=== PATIENT | male | born 1935 | race Caucasian/White ===

== ENCOUNTER 2019-01-18 15:43 | Inpatient (IN) | payer OTHER, MEDICARE ==
[~2019-01-18] VITALS: Ht 172.7 cm; Wt 81.4 kg
[~2019-01-18 15:43] MED LIST: AMLO10 PO; AMOX875 PO; ASPI325 PO; CALCAVITDA PO; CHOL10002 PO; CITA10S PO; CITA20 PO; FOLI1 PO; GABA300 PO; GLIP5 PO; HYDPAM25 PO; Hair, Skin & N1 EACH PO; LIDO700A20 TOP; METO25; OXYC5; OXYC5 PO; PANT40 PO; TAMS.4ER PO; TEMA15 PO; THIA100 PO; TROSPIUM CHLORI20 MG PO
[2019-01-18 17:39] LABS: BASOPHILS ABSOLUTE AUTO 0.01 K/mm3 (0.00-0.23); BASOPHILS PERCENT AUTO 0 % (0-2); EOSINOPHILS PERCENT AUTO 0 % (0-6); Hematocrit 40.1 % (37.0-53.0); Hemoglobin 13.8 g/dL (13.5-17.5); IMMATURE GRAN ABSOLUTE AUTO 0.06 K/mm3 (0.00-0.10); IMMATURE GRAN PERCENT AUTO 1 % (0-1); LYMPHOCYTES PERCENT AUTO 10 % (21-46); MONOCYTES ABSOLUTE AUTO 0.95 K/mm3 (0.16-1.47); MONOCYTES PERCENT AUTO 9 % (4-13); Mean Corpuscular HGB 35.8 pg (26.0-34.0); Mean Corpuscular HGB Conc 34.4 g/dL (31.5-36.5); Mean Corpuscular Volume 104 fL (80-100); Mean Platelet Volume 10.2 fL (9.1-12.4); NEUTROPHILS ABSOLUTE AUTO 8.77 K/mm3 (1.96-9.15); NEUTROPHILS PERCENT AUTO 81 % (41-73); Platelet Count 162 K/mm3 (150-400); RDW Coefficient Variation 12.3 % (11.7-14.2); Red Blood Cell Count 3.85 M/mm3 (4.30-5.90); White Blood Cell Count 10.89 K/mm3 (4.00-11.30)
[2019-01-18 17:57] LABS: Alanine Aminotransfer (ALT/SGP 91 U/L (12-78); Alk Phos 72 U/L (50-136); Anion Gap 15 mmol/L (6-16); Aspartate Aminotrans (AST/SGOT 54 U/L (12-37); Bilirubin, Total 0.8 mg/dL (0.1-1.0); Blood Urea Nitrogen 23 mg/dL (8-24); Bun/Creatinine Ratio 17.4 (12.0-20.0); CO2, Blood 18 mmol/L (21-32); Calcium, Blood 9.3 mg/dL (8.5-10.1); Chloride, Blood 99 mmol/L (98-108); Creatinine, Blood 1.32 mg/dL (0.60-1.20); Ethanol (Alcohol), Blood, Med <3 mg/dL; Globulin, Blood 4.1 g/dL (2.2-4.0); Glomerular Filtration Rate 55 (60-); Glucose, Blood 296 mg/dL (70-99); Potassium, Blood 4.7 mmol/L (3.5-5.5); Sodium, Blood 132 mmol/L (136-145); Total Protein, Blood 8.1 g/dL (6.4-8.2)
[2019-01-18] MEDS ORDERED: LISI20 PO (18:01)
[2019-01-18] MEDS ORDERED: Aspir 8181 MG PO (18:02)
[2019-01-18] MEDS ORDERED: METF500 PO (18:02)
[2019-01-18] MEDS ORDERED: CALCITRATE200 MG PO (18:03)
[2019-01-18] MEDS ORDERED: METO25 PO (18:03)
[2019-01-18] MEDS ORDERED: TAMS.4ER PO (18:03)
[2019-01-18] MEDS ORDERED: Zantac150 MG PO (18:04)
[2019-01-18] MEDS ORDERED: SILD50TA PO (18:04)
[2019-01-18 18:30] LABS: Thyroid Stimulating Hormone 0.83 uIU/mL (0.360-4.800)
[2019-01-18 18:42] LABS: Magnesium, Blood 1.1 mg/dL (1.6-2.4); Phosphorus, Blood 4.6 mg/dL (2.5-4.9)
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
[2019-01-19 04:10] LABS: BASOPHILS ABSOLUTE AUTO 0.01 K/mm3 (0.00-0.23); BASOPHILS PERCENT AUTO 0 % (0-2); EOSINOPHILS ABSOLUTE AUTO 0.01 K/mm3 (0.00-0.68); EOSINOPHILS PERCENT AUTO 0 % (0-6); Hematocrit 38.4 % (37.0-53.0); Hemoglobin 13.4 g/dL (13.5-17.5); IMMATURE GRAN ABSOLUTE AUTO 0.01 K/mm3 (0.00-0.10); IMMATURE GRAN PERCENT AUTO 0 % (0-1); LYMPHOCYTES ABSOLUTE AUTO 1.67 K/mm3 (0.84-5.20); LYMPHOCYTES PERCENT AUTO 19 % (21-46); MONOCYTES ABSOLUTE AUTO 1.27 K/mm3 (0.16-1.47); MONOCYTES PERCENT AUTO 14 % (4-13); Mean Corpuscular HGB 36.2 pg (26.0-34.0); Mean Corpuscular HGB Conc 34.9 g/dL (31.5-36.5); Mean Corpuscular Volume 104 fL (80-100); Mean Platelet Volume 10.5 fL (9.1-12.4); NEUTROPHILS ABSOLUTE AUTO 5.89 K/mm3 (1.96-9.15); NEUTROPHILS PERCENT AUTO 67 % (41-73); Platelet Count 147 K/mm3 (150-400); RDW Coefficient Variation 12.1 % (11.7-14.2); RDW Standard Deviation 45.9 fL (35.1-46.3); White Blood Cell Count 8.86 K/mm3 (4.00-11.30)
[2019-01-19 04:30] LABS: Alanine Aminotransfer (ALT/SGP 74 U/L (12-78); Albumin, Blood 3.7 g/dL (3.4-5.0); Alk Phos 64 U/L (50-136); Anion Gap 9 mmol/L (6-16); Aspartate Aminotrans (AST/SGOT 41 U/L (12-37); Bilirubin, Total 1.1 mg/dL (0.1-1.0); Blood Urea Nitrogen 27 mg/dL (8-24); Bun/Creatinine Ratio 23.7 (12.0-20.0); CO2, Blood 26 mmol/L (21-32); Chloride, Blood 99 mmol/L (98-108); Creatinine, Blood 1.14 mg/dL (0.60-1.20); Globulin, Blood 3.7 g/dL (2.2-4.0); Glomerular Filtration Rate >60 (60-); Glucose, Blood 224 mg/dL (70-99); Magnesium, Blood 2.2 mg/dL (1.6-2.4); Phosphorus, Blood 3.2 mg/dL (2.5-4.9); Potassium, Blood 4.4 mmol/L (3.5-5.5); Sodium, Blood 134 mmol/L (136-145); Total Protein, Blood 7.4 g/dL (6.4-8.2)
--- NOTE | 2019-01-19 05:28 | NUR ---
SHIFT SUMMARY HAS RESTED SINCE ADMISSION. UNWILLING TO ATTEMPT TO REPOSITION SELF IN BED DUE TO FEAR OF PAIN WITH MOVEMENT. MADE COMMENT TO NURSING THAT HE WAS NOT LOOKING FORWARD TO HAVING TO GET OUT OF BED AND AMBULATE. WHEN NURSING COMMENTED THAT MOVEMENT WAS GOOD AND HIS BODY WOULD HEAL BETTER WITH MOVEMENT, HE STATED THAT HE HAD BEEN HAVING TROUBLE GETTING AROUND AT HOME AND HAD BEEN SPENDING MORE AND MORE TIME SITTING DOWN TO REST. HE WONDERED IF HE WOULD BE ABLE TO GET SOME HELP AT HOME WHILE HE RECOVERED. HE STATED THAT HE LIVED ALONE AND THAT [facility] VISITS. NURSING STATED THAT THIS WOULD BE PASSED ON TO DAY SHIFT, VOICES UNDERSTANDING. PAIN POORLY TOLERATED, PRN PAIN MEDS GIVEN PER MD ORDERS. CIWA STABLE AT 7, TREATED PRN PER MD ORDERS. DENEIS FURTHER NEEDS OR WANTS AT THIS TIME. SAFETY MEASURES NI PLACE. WILL GIVE HAND OFF TO ONCOMING SHIFT USING SBAR.
[2019-01-19 06:39] LABS: Source, Urine Clean Catch
[2019-01-19 06:47] LABS: Bilirubin, Urine Neg (Neg); Blood, Urine 4+ (Neg); Glucose Qualitative, Urine 3+ (Neg); Ketones, Urine 1+ (Neg); Leukocyte Esterase, Urine Neg (Neg); Nitrite, Urine Neg (Neg); Protein, Urine 4+ (Neg); Urobilinogen, Urine NORM (Normal)
[2019-01-19 06:53] LABS: Amorphous Light (0-Heavy); Appearance, Urine Clear (Clear); Bacteria Rare /hpf; Color, Urine Yellow (P-Yellow); Red Blood Cells, Urine 0-2 /hpf (0-2); Squamous Epithelial Cells Few /hpf (Few); White Blood Cells, Urine 0-2 /hpf (0-5)
[2019-01-19 06:57] LABS: U Amphetamine Screen Not Detected; U Barbituate Screen Not Detected; U Benzodiazapine Screen DETECTED; U Buprenorphine Screen Not Detected; U Cannabinoids Screen Not Detected; U Cocaine Screen Not Detected; U Methadone Screen Not Detected; U Methamphetamine Screen Not Detected; U Opiates Screen DETECTED; U Oxycodone Screen Not Detected; U Phencyclidine Screen Not Detected; U Propoxyphene Screen Not Detected
--- NOTE | 2019-01-19 10:18 | NUR ---
TRANSFER TO ICU PT HAVING CONTINUOUS N/V. EMESIS BROWN W/FEW COFFEE APPEARING FLECKS. CIWA INCREASED TO 15. BP 188/107. NOTIFIED DR OLIVA AND ORDERS OBTAINED. REPORT GIVEN TO ANNABEL DASILVA IN ICU. PT TRANSFERRED TO ICU 3.
--- NOTE | 2019-01-19 10:53 | NUR ---
ASSUMED CARE: RECEIVED REPORT FROM STRATEGIC ADVISOR. PT ARRIVED WITH CHEST TUBE ON LOW SUCTION VIA PORTABLE SUCTION. PT TRANSFERED TO ICU BED WITH 5 PERSON AND A SLIDER SHEET. PT [place] OUT IN PAIN AND STATES HE CAN'T BREATH WHILE HAVING PT TURNED ON SIDE TO REMOVE EXTRA LINENS. O2 SATS REMAIN GREATER THAN 92% ON 2L NC. WHILE ON HIS SIDE A SMALL AMOUNT OF BLOOD IS NOTED TO ENTER THE TUBING FROM CHEST TUBE. UPON ASSESSMENT OF THE CHEST TUBE NO CREPITUS NOTED, NO DIVEATED TRACH, SCANT AMOUNT OF BLOOD NOTED UNDER THE DRESSING. BP IS NOTED TO BE ELIVATED SEE VITAL SIGNS. 0.2 MG OF ATIVAN GIVEN FOR CIWA OF 7. DR SALGADOTRATE NOTIFIED OF ELIVATED BP AND CONCERN OF CHEST TUBE BEING POSSIBLY DISLODGED D/T PT EXTREAM PAIN, BLEEDING UNDER DRESSING, DIFFICULTY BREATHING AND ELIVATED BP. WILL CONTINUE TO MONITOR AND ASSESS FURTHER.
--- NOTE | 2019-01-19 18:48 | NUR ---
SHIFT SUMMARY: WHEN TURNING PT ON R SIDE CHEST TUBE LINE APPEARS TO HAVE BRIGHT RED BLOOD DRAIN THROUGH IT, BUT STOPS BEFORE ENTERING THE LARGE TUBING. DR GRIGGS WAS CALLED AND NOTIFIED, NO NEW ORDERS. PT HAS BEEN COUGHING UP DARK BLACK/BROWN SPUTUM ALONG WITH HAVING SOME REPORT OF EMISIS FROM SURGICAL.
--- NOTE | 2019-01-19 19:02 | NUR ---
CIWA: PT HAS HAD A CIWA OF 7 OR LESS BASED ON IF HES SLEEPING OR NOT.
--- NOTE | 2019-01-19 19:43 | NUR ---
ASSUMPTION OF CARE ASSUMED CARE OF PT @ 1900. PT RESTING IN BED, AROUSES TO VERBAL STIMULI, A&O x4, CIWA 2. O2 SATURATIONS @ 96% ON 2L O2 PER NC, LS DIMINISHED T/O BUT EQUAL BILATERALLY, CHEST TUBE TO 20cm WATER SUCTION, BLOODY DRAINAGE NOTED IN TUBE. MONITOR SHOWS SINUS RHYTHM WITH PAC'S AND BBB, RATE 90'S-105, PT HYPERTENSIVE WTIH SYSTOLIC BP 150-170. PT COMPLAINS OF 5/10 HEAD PAIN.
--- NOTE | 2019-01-20 01:19 | NUR ---
DR SHERIDAN IN TO SEE PT, DIET CHANGED TO CLEAR LIQUIDS.
[2019-01-20 03:21] LABS: BASOPHILS ABSOLUTE AUTO 0.02 K/mm3 (0.00-0.23); BASOPHILS PERCENT AUTO 0 % (0-2); EOSINOPHILS PERCENT AUTO 0 % (0-6); Hematocrit 40.3 % (37.0-53.0); Hemoglobin 13.9 g/dL (13.5-17.5); IMMATURE GRAN ABSOLUTE AUTO 0.06 K/mm3 (0.00-0.10); IMMATURE GRAN PERCENT AUTO 0 % (0-1); LYMPHOCYTES ABSOLUTE AUTO 1.91 K/mm3 (0.84-5.20); LYMPHOCYTES PERCENT AUTO 12 % (21-46); MONOCYTES ABSOLUTE AUTO 1.82 K/mm3 (0.16-1.47); MONOCYTES PERCENT AUTO 12 % (4-13); Mean Corpuscular HGB 35.8 pg (26.0-34.0); Mean Corpuscular HGB Conc 34.5 g/dL (31.5-36.5); Mean Corpuscular Volume 104 fL (80-100); Mean Platelet Volume 10.7 fL (9.1-12.4); NEUTROPHILS ABSOLUTE AUTO 11.83 K/mm3 (1.96-9.15); NEUTROPHILS PERCENT AUTO 76 % (41-73); Platelet Count 205 K/mm3 (150-400); RDW Coefficient Variation 12.5 % (11.7-14.2); RDW Standard Deviation 47.9 fL (35.1-46.3); Red Blood Cell Count 3.88 M/mm3 (4.30-5.90); White Blood Cell Count 15.64 K/mm3 (4.00-11.30)
[2019-01-20 03:39] LABS: Bun/Creatinine Ratio 33.1 (12.0-20.0); Calcium, Blood 9.1 mg/dL (8.5-10.1); Creatinine, Blood 1.24 mg/dL (0.60-1.20); Magnesium, Blood 2.4 mg/dL (1.6-2.4); Phosphorus, Blood 1.8 mg/dL (2.5-4.9); Potassium, Blood 4.1 mmol/L (3.5-5.5); Troponin I 0.04 ng/mL (0.000-0.040)
--- NOTE | 2019-01-20 06:13 | NUR ---
SHIFT SUMMARY PT AWAKE FOR MUCH OF SHIFT, BREIF PERIODS OF SLEEP AFTER MEDICATING FOR PAIN, A&O x4 T/O SHIFT, CIWA RANGING FROM 2-7. O2 SATURATIONS MAINTAINED ABOVE 95% ON 2L PER NC, LS DIMINISHED T/O WITH RUB TO ANTERIOR RML NOTED, URASIL CHEST TUBE IN PLACE TO 20cm WATER SUCTION, SANGUINOUS DRAINAGE NOTED IN TUBE. PT WITH PRODUCTIVE COUGH, ABLE TO CLEAR OWN SECRETIONS, OCCASSIONALLY USES SUCTION TO HELP CLEAR SECRETIONS. MONITOR SHOWS SINUS TACHYCARDIA WITH PAC'S AND SOME PVC'S, RATE INCREASED THROUGH SHIFT, RANGING FROM 110-150'S, PT HYPERTENSIVE, PRN MEDICATIONS PROVIDED FOR BP CONTROL. PT CHANGED TO CLEAR LIQUID DIET, TOLERATED PO INTAKE WELL, SOME NAUSEA NOTED. PT TOLERATES PAIN WHEN RESTING IN BED AND ABLE TO SLEEP AFTER MEDICATION PROVIDED, WAKES FREQUENTLY WITH COUGHING/HICCUPS, CAUSING SEVERE PAIN, OVERALL PAIN POORLY MANAGED. PT RESISTANT TO MOVEMENT/REPOSITIONING DUE TO PAIN.
--- NOTE | 2019-01-20 07:17 | NUR ---
START OF SHIFT NOTE: RECEIVED REPORT FROM [place] RIDLEY RN, ASSUMED CARE, PATIENT IS AWAKE AND MOANING, C/O PAIN WITH DEEP BREATHS, ALSO VOMITING WHAT APPEARS TO BE COFFEE GROUND LIQUID, PATIENT IS A+Ox4, ON 2L NC, URICIL CHEST TUBE IN PLACE ON R UPPER CHEST, ATTACHED TO 20 CM WATER SUCTION, LUNG SOUNDS ARE DIMINISHED ON LEFT AND VERY FAINT ON RIGHT, PATIENT IS BREATHING SHALLOW AND MORE RAPIDLY, SINUS TACHY, SBP IN LOW 100'S, SCD'S IN PLACE, PATIENT HAS ATTENDS ON, BUT IS ABLE TO TELL WHEN HE NEEDS TO GO, BUT NEEDS ASSISTANCE WITH URINAL, C/O NOT BEING ABLE TO MOVE AND STATES "I AM NOT GOING TO MAKE IT", PATIENT IS IN ISOLATION FOR MRSA AND POSSIBLE C-DIFF, HAS HAD NO STOOLS FOR OVER 24 HOURS AT THIS TIME, CALL LIGHT IN REACH, WILL CONTINUE TO MONITOR.
--- NOTE | 2019-01-20 07:34 | NUR ---
CALLED DR. OLIVA ABOUT PATIENTS PAIN AND NAUSEA, NEW ORDERS RECEIVED.
[2019-01-20 10:09] LABS: Source, Urine Catheter
--- NOTE | 2019-01-20 10:12 | NUR ---
DR. FITZPATRICK CONSULTED, NEW ORDERS RECEIVED, CHRISTINE CATHETER PLACED D/T URINARY RETENTION AND STRICT I&O, PATIENT INCONTINENT, PATIENT SHOWS MOTTLED SKIN APPEARANCE ON BILATERAL LOWER EXTREMITIES, UA SENT PER PROTOCOL, LAB IN TO DRAW ORDERED BLOOD TESTS, CALL LIGHT IN REACH, WILL CONTINUE TO MONITOR.
[2019-01-20 10:18] LABS: Bilirubin, Urine Neg (Neg); Blood, Urine 1+ (Neg); Glucose Qualitative, Urine 4+ (Neg); Ketones, Urine 1+ (Neg); Leukocyte Esterase, Urine Neg (Neg); Nitrite, Urine Neg (Neg); Protein, Urine 4+ (Neg); Urobilinogen, Urine NORM (Normal)
[2019-01-20 10:28] LABS: Appearance, Urine Hazy (Clear); Color, Urine Yellow (P-Yellow)
[2019-01-20 10:29] LABS: Amorphous Heavy (0-Heavy); Bacteria Rare /hpf; Red Blood Cells, Urine 0-2 /hpf (0-2); Squamous Epithelial Cells Not Seen /hpf (Few); White Blood Cells, Urine 0-2 /hpf (0-5)
[2019-01-20 10:30] LABS: International Normalized Ratio 0.98; Prothrombin Time Results 10.4 Sec (9.7-11.5)
--- NOTE | 2019-01-20 12:27 | NUR ---
PATIENT AWOKE FROM SLEEP, REPORTED THAT HE "FEELS SO MUCH BETTER THAN YESTERDAY, REPORTED MINIMAL PAIN AT THIS TIME, ABLE TO BREATH DEEPER, DENIES ANY NAUSEA AT THIS TIME, SLIGHTLY ELEVATED TEMP AT 100.2, , DR. GRIGGS IN, SUCTION STOPPED, CHEST TUBE NOW TO WATER SEAL, PATIENT TOLERATING WELL, CALL LIGHT IN REACH, WILL CONTINUE TO MONITOR.
--- NOTE | 2019-01-20 14:00 | NUR ---
PATIENT IS RESTING COMFORTABLY WITH EYES CLOSED, VSS, CALL LIGHT IN REACH, WILL CONTINUE TO MONITOR.
--- NOTE | 2019-01-20 17:52 | NUR ---
SHIFT SUMMARY NOTE: PATIENT WAS FOUND VOMITING COFFEE GROUND EMESIS AT BEGINNING OF SHIFT AND WAS IN EXTREME PAIN WITH EVERY MOVEMENT AND COUGH/HICCUP, DR. OLIVA WAS NOTIFIED AND PAIN MEDICATION/NAUSEA MEDICATION WAS CHANGED FROM FENTANYL TO DILAUDID AND FROM ZOFRAN/PHENERGAN TO ADDITIONAL COMPAZINE, WHILE AWAITING NEW ORDERS PATIENT BECAME HYPOTENSIVE WITH SBP'S IN 70'S/40'S AND 500 CC BOLUS WAS ORDERED, PATIENT RESPONDED WELL, ALSO RECEIVED COMPAZINE AND DILAUDID AND RESPONDED WELL TO BOTH, AM BLOOD PRESSURE MEDICATIONS WERE HELD, LABS DRAWN AND LACTIC ACID WAS 2.8, PATIENT RECEIVED 2.5 L BOLUS OF NS AND THE NS AT 125 CC/HR, ALSO ZOSYN AND VANCOMYCIN STARTED, CHRISTINE CATHETER PLACED AND PATIENT IMMEDIATELY HAD ALMOST 700 CC'S OF LINDA COLORED URINE OUT, TOLERATED CHRISTINE INSERTION WELL, DR. FITZPATRICK WAS CONSULTED BY DR. OLIVA, DR. GRIGGS ALSO CAME TO SEE PATIENT AND TURNED OF WALL SUCTION, PATIENT NOW ON WATER SEAL, MINIMAL CHEST TUBE OUTPUT, DR. SHERIDAN IN TO SEE PATIENT, WILL POSSIBLY DO EGD WHEN CHEST TUBE IS OUT, PATIENT REMAINS NPO AT THIS TIME, SLIGHTLY ELEVATED TEMP OF 100.0, MD'S AWARE, PATIENT STATES THAT "HE FEELS BETTER THAN YESTERDAY AND THIS MORNING", REPOSITIONED MULTIPLE TIMES, ABLE TO ASSIST SOME, ALERT AND ORIENTED, CONTINUES ON 2L NC WITH O2 SATS IN MID 90'S, RESTING COMFORTABLY AT THIS TIME, CALL LIGHT IN REACH, WILL CONTINUE TO MONITOR AND GIVE REPORT TO ONCOMING LIBRARY HELPER.
--- NOTE | 2019-01-20 21:00 | NUR ---
ASSUMPTION OF CARE ASSUMED CARE OF PT @ 1900, APPEARS TO BE RESTING COMFORTABLY, O2 SATURATIONS 95% ON 2L PER NC, URASIL CT IN PLACE TO WATER SEAL, SANGUINEOUS DRAINAGE NOTED IN TUBE. MONITOR SHOWS SINUS RHYTHM, RATE 80'S, SYSTOLIC BP 140'S. AT APPROX 1915, PT STARTED COUGHING, COMPLAINTS OF 10/10 PAIN AND NAUSEA, PRN DILAUDID AND COMPAZINE PROVIDED, WITH GOOD EFFECT, NO EMESIS AT THIS TIME. SMALL SIPS OF WATER PROVIDED FOR SCHEDULED PO MEDS, PT TOLERATED WELL. CHRISTINE IN PLACE DRAINING LINDA COLORED URINE.
[2019-01-21 03:24] LABS: BASOPHILS ABSOLUTE AUTO 0.03 K/mm3 (0.00-0.23); BASOPHILS PERCENT AUTO 0 % (0-2); EOSINOPHILS ABSOLUTE AUTO 0.15 K/mm3 (0.00-0.68); EOSINOPHILS PERCENT AUTO 2 % (0-6); Hematocrit 30.7 % (37.0-53.0); Hemoglobin 10.2 g/dL (13.5-17.5); IMMATURE GRAN ABSOLUTE AUTO 0.06 K/mm3 (0.00-0.10); IMMATURE GRAN PERCENT AUTO 1 % (0-1); LYMPHOCYTES ABSOLUTE AUTO 2.16 K/mm3 (0.84-5.20); LYMPHOCYTES PERCENT AUTO 22 % (21-46); MONOCYTES ABSOLUTE AUTO 1.02 K/mm3 (0.16-1.47); MONOCYTES PERCENT AUTO 10 % (4-13); Mean Corpuscular HGB 37.1 pg (26.0-34.0); Mean Corpuscular HGB Conc 33.2 g/dL (31.5-36.5); Mean Platelet Volume 10.1 fL (9.1-12.4); NEUTROPHILS ABSOLUTE AUTO 6.39 K/mm3 (1.96-9.15); NEUTROPHILS PERCENT AUTO 65 % (41-73); Platelet Count 140 K/mm3 (150-400); RDW Coefficient Variation 12.7 % (11.7-14.2); RDW Standard Deviation 51.8 fL (35.1-46.3); Red Blood Cell Count 2.75 M/mm3 (4.30-5.90); White Blood Cell Count 9.81 K/mm3 (4.00-11.30)
[2019-01-21 03:49] LABS: Mean Corpuscular Volume 112 fL (80-100)
[2019-01-21 03:54] LABS: Albumin, Blood 2.7 g/dL (3.4-5.0); Albumin/Globulin Ratio 0.9 (0.8-1.8); Bilirubin, Total 0.8 mg/dL (0.1-1.0); Bun/Creatinine Ratio 28.9 (12.0-20.0); Calcium, Blood 7.9 mg/dL (8.5-10.1); Creatinine, Blood 1.35 mg/dL (0.60-1.20); Globulin, Blood 3.1 g/dL (2.2-4.0); Magnesium, Blood 2.3 mg/dL (1.6-2.4); Phosphorus, Blood 2.3 mg/dL (2.5-4.9); Potassium, Blood 4.2 mmol/L (3.5-5.5); Total Protein, Blood 5.8 g/dL (6.4-8.2)
--- NOTE | 2019-01-21 06:33 | NUR ---
SHIFT SUMMARY PT REMAINS STABLE T/O SHIFT, RESTED WELL THROUGH NIGHT, AROUSES EASILY, SOME COMPLAINTS OF PAIN TO R CHEST, PRN MEDICATIONS ADEQUATE TO CONTROL PAIN. LUNG SOUNDS DIMINISHED, REMAINS ON 2L PER NC TO MAINTAIN O2 SATURATIONS ABOVE 95%, CHEST TUBE TO WATER SEAL IN PLACE, 15ml DRAINAGE THIS SHIFT. MONITOR SHOWS SINUS RHYTHM, RATE 70'S-80'S. TMAX THIS SHIFT 100.6. CHRISTINE IN PLACE DRAINING LINDA COLORED URINE. POWERGLIDE PLACED THIS SHIFT TO R UPPER ARM.
--- NOTE | 2019-01-21 07:30 | NUR ---
START OF SHIFT NOTE: RECEIVED REPORT FROM GE[place] RIDLEY RN, ASSUMED CARE, PATIENT IS AWAKE, ALERT AND ORIENTED, TALKATIVE, COOPERATIVE, PLEASANT, REPORTS THAT HIS PAIN IS "NOT BAD WHEN HE JUST LAYS THERE, BUT IT GETS WORSE WHEN HE TRIES TO MOVE", OVERALL PATIENT IS DOING MUCH BETTER, SWALLOWS HIS MORNING MEDICATION WITH SIPS OF WATER, NO PROBLEM SWALLOWING, TALKS ABOUT HIS DOG, TEMP SLIGHTLY ELEVATED AT 101.1, RECEIVED TYLENOL 650 MG PO FROM NOC SHIFT RIGHT BEFORE SHIFT CHANGE, HAS UROCIL/PLEURIVAC IN RIGHT UPPER CHEST CONNECTED TO CHEST TUBE WHICH IS TO 20 CM WATER SEAL, MINIMAL SANGINOUS DRAINAGE, LUNG SOUNDS ARE DIMINISHED ON BOTH SIDES, MORE SO ON RIGHT, PATIENT IS ABLE TO TAKE DEEPER BREATHS, SR/ST WITH HR IN 90'S, SBP'S IN 140'S, O2 SATURATION IN MID TO UPPER 90'S, BOWEL TONES ARE PRESENT IN ALL FOUR QUADRANTS AND ARE HYPOACTIVE, PATIENT HAS A TEMP CHRISTINE IN WITH GOOD URINE OUTPUT, LINDA COLORED URINE, NS AT 125 CC/HR INFUSING, ALSO RECEIVES ZOSYM AND VANCOMYCIN, NO N/V, NO SOB, NO CHEST PAIN/DISCOMFORT, CALL LIGHT IN REACH, WILL CONTINUE TO MONITOR.
--- NOTE | 2019-01-21 08:50 | NUR ---
PATIENT TOOK AM PO MEDICATION WITHOUT ANY PROBLEM SWALLOWING WITH SIPS OF WATER AND ENSURE.
--- NOTE | 2019-01-21 09:08 | NUR ---
PATIENT RECEIVED 1 MG OF DILAUDID IV FOR PAIN 10/10 IN RIGHT CHEST AND RADIATING AROUND TO MID BACK, PATIENT WAS ALSO REPOSITIONED AND REPORTED "LESS PAIN AND DISCOMFORT".
--- NOTE | 2019-01-21 09:45 | NUR ---
DR. GRIGGS IN TO SEE PATIENT, PULLED UROCIL CHEST TUBE, PATIENT TOLERATED WELL, INSERTION SITE ON RIGHT UPPER CHEST COVERED WITH GAUZE AND OPSITE.
--- NOTE | 2019-01-21 10:27 | NUR ---
Echocardiogram completed.
--- NOTE | 2019-01-21 10:53 | NUR ---
DR. SALGADOTRATE IN TO SEE PATIENT, NO NEW ORDERS AT THIS TIME, IF PATIENT CONTINUES TO DO WELL MAY TRANSFER TO PCU THIS AFTERNOON.
--- NOTE | 2019-01-21 11:28 | NUR ---
DR. FITZPATRICK IN TO SEE PATIENT, NEW ORDERS RECEIVED.
--- NOTE | 2019-01-21 14:41 | NUR ---
OF 0900 HOURS ON 01-22-19 PATIENT IS ONLY ALLOWED WATER AND ICE CHIPS FOR PENDING EGD.
--- NOTE | 2019-01-21 16:16 | NUR ---
PATIENT REPOSITIONED FOR COMFORT, TOLERATING WELL, TOOK PO MEDS WELL WITH SIPS OF ENSURE, GOOD URINE OUTPUT AFTER LASIX ADMINISTRATION, CALL LIGHT IN REACH, WILL CONTINUE TO MONITOR.
--- NOTE | 2019-01-21 16:43 | NUR ---
PATIENT RECEIVED 1 MG DILAUDID IV FOR PAIN 7/10 ON RIGHT CHEST AND ALSO 650 MG TYLENOL PO FOR TEMP OF 100.8, PATIENT RESTING WITH EYES CLOSED, CALL LIGHT IN REACH, WILL CONTINUE TO MONITOR.
--- NOTE | 2019-01-21 17:09 | NUR ---
REPORT CALLED TO ANNABEL LE, ON PCU, PATIENT WILL BE TRANSFERRED TO PCU ROOM 14 VIA BED.
--- NOTE | 2019-01-21 17:40 | NUR ---
PT DENIES NAUSEA, REGLAN IS HELD FOR NOW
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
--- NOTE | 2019-01-22 04:11 | NUR ---
SHIFT SUMMARY: 83 Y/O MALE RESTED COMFORTABLY IN BED ALL SHIFT; PT HAD OCCASIONAL RIBS DISCOMFORT RATED 6/10 WITH DILAUDID 1MG IVP PROVIDING ADEQUATE PAIN RELIEF FELT; LUNG SOUNDS ARE DIMINISHED THROUGHOUT WITH OCCASIONAL PRODUCTIVE COUGH WHITE/BROWN PHELGM; ALERT AND ORIENTED X 2; ABLE TO FOLLOW ALL SIMPLE VERBAL COMMANDS; BED ALARM APPLIED, BED LOW POSITION WITH CALL LIGHT AT SIDE.
[2019-01-22 05:02] LABS: BASOPHILS ABSOLUTE AUTO 0.02 K/mm3 (0.00-0.23); BASOPHILS PERCENT AUTO 0 % (0-2); EOSINOPHILS ABSOLUTE AUTO 0.11 K/mm3 (0.00-0.68); EOSINOPHILS PERCENT AUTO 2 % (0-6); Hematocrit 29.9 % (37.0-53.0); IMMATURE GRAN ABSOLUTE AUTO 0.04 K/mm3 (0.00-0.10); IMMATURE GRAN PERCENT AUTO 1 % (0-1); LYMPHOCYTES ABSOLUTE AUTO 1.41 K/mm3 (0.84-5.20); LYMPHOCYTES PERCENT AUTO 23 % (21-46); MONOCYTES ABSOLUTE AUTO 0.67 K/mm3 (0.16-1.47); MONOCYTES PERCENT AUTO 11 % (4-13); Mean Corpuscular HGB 36.4 pg (26.0-34.0); Mean Corpuscular HGB Conc 33.4 g/dL (31.5-36.5); NEUTROPHILS ABSOLUTE AUTO 3.79 K/mm3 (1.96-9.15); NEUTROPHILS PERCENT AUTO 63 % (41-73); Platelet Count 129 K/mm3 (150-400); RDW Coefficient Variation 12.3 % (11.7-14.2); RDW Standard Deviation 49.1 fL (35.1-46.3); Red Blood Cell Count 2.75 M/mm3 (4.30-5.90); White Blood Cell Count 6.04 K/mm3 (4.00-11.30)
[2019-01-22 05:12] LABS: Mean Corpuscular Volume 109 fL (80-100)
[2019-01-22 05:17] LABS: International Normalized Ratio 0.97; Prothrombin Time Results 10.3 Sec (9.7-11.5)
[2019-01-22 05:20] LABS: Anion Gap 6 mmol/L (6-16); Blood Urea Nitrogen 28 mg/dL (8-24); CO2, Blood 25 mmol/L (21-32); Calcium, Blood 8.3 mg/dL (8.5-10.1); Chloride, Blood 107 mmol/L (98-108); Creatinine, Blood 1.12 mg/dL (0.60-1.20); Glomerular Filtration Rate >60 (60-); Glucose, Blood 203 mg/dL (70-99); Potassium, Blood 4.2 mmol/L (3.5-5.5); Sodium, Blood 138 mmol/L (136-145)
--- NOTE | 2019-01-22 07:26 | NUR ---
ASSUMED CARE: PT RESTING QUIETLY AT THIS TIME. NO ACUTE NEEDS OR DISTRESS AT THIS TIME. PLAN FOR EGD LATER TODAY. NPO SIGN OUTSIDE OF DOOR
[2019-01-22 12:11] LABS: Vancomycin, Trough 6.7 ug/mL (5.0-10.0)
--- NOTE | 2019-01-22 15:34 | NUR ---
[facility]: [facility] [address] [place] [id number] PHONE NUMBER [phone] SELENE GUTIERREZ RN CARE MANAGER ,, , ,
--- NOTE | 2019-01-22 16:00 | NUR ---
DAY SURGERY CALLED TO GET PT AND WERE MADE AWARE OF PT'S CIWA SCORE OF 8 AND GIVEN 1MG OF ATIVAN. THEY WERE CONCERNED OF PT'S CONFUSION AND NEEDED NEXT OF KIN. NO ONE LISTED ON FACE SHEET. DISCUSSED WITH PREPARATION ROOM WORKER WHO FOUND PT'S S[facility]OUGH [facility]. DISCUSSED CASE WITH SON AND CALLED DR SHERIDAN TO LET HIM KNOW NEXT OF KIN IS AVAILABLE. PT TAKEN TO DAY SURGERY VIA JESSICA
--- NOTE | 2019-01-22 16:36 | NUR ---
01/22/19 0436 Jessica Hudson History, Chart, Medications and Allergies reviewed before start of procedure. MAC CASE WITH DR. KERR. TELEPHONE CONSENT OBTAINED WITH SON IN [facility] TO START OF CASE PT SEDATED, CONFUSED, UNABLE TO SIGN OWN CONSENT.
--- NOTE | 2019-01-22 19:37 | NUR ---
SHIFT SUMMARY: PT AHS BEEN LETHARGIC AND CONFUSED SINCE RETURN FROM DAY SURGERY. FAMILY AT BEDSIDE AT THIS TIME. PT SATTING WELL ON 2L, MUMBLES. NO ACUTE DISTRESS AT THIS TIME.
[2019-01-23 04:07] LABS: BASOPHILS ABSOLUTE AUTO 0.01 K/mm3 (0.00-0.23); BASOPHILS PERCENT AUTO 0 % (0-2); EOSINOPHILS ABSOLUTE AUTO 0.28 K/mm3 (0.00-0.68); EOSINOPHILS PERCENT AUTO 6 % (0-6); Hematocrit 28.8 % (37.0-53.0); Hemoglobin 9.6 g/dL (13.5-17.5); IMMATURE GRAN ABSOLUTE AUTO 0.02 K/mm3 (0.00-0.10); IMMATURE GRAN PERCENT AUTO 0 % (0-1); LYMPHOCYTES ABSOLUTE AUTO 1.39 K/mm3 (0.84-5.20); LYMPHOCYTES PERCENT AUTO 28 % (21-46); MONOCYTES ABSOLUTE AUTO 0.63 K/mm3 (0.16-1.47); MONOCYTES PERCENT AUTO 13 % (4-13); Mean Corpuscular HGB 35.8 pg (26.0-34.0); Mean Corpuscular HGB Conc 33.3 g/dL (31.5-36.5); Mean Corpuscular Volume 108 fL (80-100); Mean Platelet Volume 10.2 fL (9.1-12.4); NEUTROPHILS ABSOLUTE AUTO 2.62 K/mm3 (1.96-9.15); NEUTROPHILS PERCENT AUTO 53 % (41-73); Platelet Count 128 K/mm3 (150-400); RDW Standard Deviation 46.8 fL (35.1-46.3); Red Blood Cell Count 2.68 M/mm3 (4.30-5.90); White Blood Cell Count 4.95 K/mm3 (4.00-11.30)
[2019-01-23 04:31] LABS: Albumin, Blood 2.6 g/dL (3.4-5.0); Albumin/Globulin Ratio 0.8 (0.8-1.8); Bilirubin, Direct 0.3 mg/dL (0.0-0.3); Bilirubin, Indirect 0.6 mg/dL (0.1-0.7); Bilirubin, Total 0.9 mg/dL (0.1-1.0); Globulin, Blood 3.2 g/dL (2.2-4.0); Total Protein, Blood 5.8 g/dL (6.4-8.2)
--- NOTE | 2019-01-23 07:15 | NUR ---
SHIFT SUMMARY PATIENT APPEARED CONFUSED AND FORTGETFUL LAST NIGHT. PATIENT'S MENTATION WOULD COME AND GO. SOMETIMES PATIENT WOULD BE ABLE TO ANSWER SOME MENTATION QUESTIONS AND OTHER TIMES PATIENT WAS NOT. HOWEVER, THIS AM PATIENT APPEARS ALERT AND ORIENTED AND WAS ABLE TO ANSWER ALL MENTATION QUESTIONS APPROPRATELY ASIDE FROM THE SPECIFIC DATE. PATIENT WAS ABLE TO STATE A GENERAL DATE OF JANUARY OF 2019. PATIENT TURNED Q2H. PATIENT MEDICATED FOR PAIN PER EMAR. PATIENT APPEARED TO NAP ON AND OFF THROUGHOUT THE NIGHT. REPORT GIVEN TO ONCOMING RN.
[2019-01-23 11:27] LABS: Vancomycin, Trough 13.7 ug/mL (5.0-10.0)
--- NOTE | 2019-01-23 18:59 | NUR ---
SHIFT SUMMARY/TRANSFER NOTE REPORT GIVEN VIA TELEPHONE FOR RN ABDULAZIZ, ASSUMING CARE OF PT. PT BEING TRANSFERED TO ROOM 350. PT A&Ox3 WITH INTERMITTENT CONFUSION. CIWA 5-8 T/O SHIFT. PT RESTING IN BED, UP TO RECLINER FOR MEALS. PT REPORTS PAIN IN BACK, RIGHT SIDE AND SHOULDERS, MEDICATED PER EMAR. PT DENIES NAUEA AND EMESIS, NO BM NOTED, DR SHERIDAN NOTIFIED DURING ROUNDING. PT SOB WITH EXERTION, ON 2L O2 VIA NC, SPO2 >90% T/O SHIFT. PT RECEIVING IV ANTIBIOTICS AND IV STEROIDS. ELEVATED BP NOTED, MEDICATED WITH SCHEDULES BP MEDCIATIONS, TRENDING DOWN. OTHER VSS. NO OTHER ACUTE CHANGES NOTED DURING SHIFT. REPORT GIVEN TO ONCOMING RN. PCU NOC RN PLANS TO TRANSFER PT TO MEDICAL UNIT.
--- NOTE | 2019-01-23 19:52 | NUR ---
PT LEFT ROOM AT 1951, SON NOTIFIED.
--- NOTE | 2019-01-24 03:40 | NUR ---
Transfer Patient transferred to [facility] ED at 5 on 01/23/19. He is sleeping on arrival but easily arousable. He answers orientation questions appropriately. preciado noted, VSS, no open skin areas noted. See shift assessment.
--- NOTE | 2019-01-24 04:58 | NUR ---
Shift Summary Patient slept intermittently overnight. He did complain of pain to the right right ribs and back. IV dilaudid was effective for pain. He remained oriented overnight with no delusions or hallucinations. O2 saturation remained >90% on 2L.
[2019-01-24 08:28] LABS: BASOPHILS ABSOLUTE AUTO 0.01 K/mm3 (0.00-0.23); BASOPHILS PERCENT AUTO 0 % (0-2); EOSINOPHILS ABSOLUTE AUTO 0.28 K/mm3 (0.00-0.68); EOSINOPHILS PERCENT AUTO 6 % (0-6); Hematocrit 27.6 % (37.0-53.0); Hemoglobin 9.3 g/dL (13.5-17.5); IMMATURE GRAN ABSOLUTE AUTO 0.01 K/mm3 (0.00-0.10); IMMATURE GRAN PERCENT AUTO 0 % (0-1); LYMPHOCYTES ABSOLUTE AUTO 1.09 K/mm3 (0.84-5.20); LYMPHOCYTES PERCENT AUTO 24 % (21-46); MONOCYTES ABSOLUTE AUTO 0.55 K/mm3 (0.16-1.47); MONOCYTES PERCENT AUTO 12 % (4-13); Mean Corpuscular HGB 35.9 pg (26.0-34.0); Mean Corpuscular HGB Conc 33.7 g/dL (31.5-36.5); Mean Corpuscular Volume 107 fL (80-100); Mean Platelet Volume 10.1 fL (9.1-12.4); NEUTROPHILS ABSOLUTE AUTO 2.64 K/mm3 (1.96-9.15); NEUTROPHILS PERCENT AUTO 58 % (41-73); Platelet Count 130 K/mm3 (150-400); RDW Standard Deviation 47.2 fL (35.1-46.3); Red Blood Cell Count 2.59 M/mm3 (4.30-5.90); White Blood Cell Count 4.58 K/mm3 (4.00-11.30)
[2019-01-24] MEDS ORDERED: AMOCLA875 PO (12:00)
[2019-01-24] MEDS ORDERED: ACET325 PO (12:00)
[2019-01-24] MEDS ORDERED: FOLI1 PO (12:00)
[2019-01-24] MEDS ORDERED: HYDMOR2 PO (12:01)
[2019-01-24] MEDS ORDERED: INSULANPEN SC (12:02)
[2019-01-24] MEDS ORDERED: LORA1 PO (12:08)
[2019-01-24] MEDS ORDERED: Culturelle1 CAP PO (12:08)
[2019-01-24] MEDS ORDERED: Humalog100 UNIT/1 SC (12:08)
[2019-01-24] MEDS ORDERED: MUPIROCIN1 GM (12:10)
[2019-01-24] MEDS ORDERED: OMEPRAZOLE20 MG PO (12:10)
[2019-01-24] MEDS ORDERED: PROM25 PO (12:12)
[2019-01-24] MEDS ORDERED: SENN187 PO (12:13)
[2019-01-24] MEDS ORDERED: B-1100 MG PO (12:13)
[2019-01-24] MEDS ORDERED: TRAZ50 PO (12:13)
[2019-01-24] MEDS ORDERED: HYDR10 PO (12:17)
--- NOTE | 2019-01-24 14:52 | NUR ---
REPORT CALLED TO LAWRENCE AT [facility]. PT UP IN CHAIR SINCE 1200 AFTER O.T. IN TO SEE PT. MEDICATED WITH ORAL DILAUDID BUT HAS CONTINUED TO ASK FOR PAIN MEDS. REQUESTED TO USE COMMODE WITH NO RESULTS. WAS GIVEN BOWEL CARE. 1 PERSON ASSIST WITH TRANSFERS. TO FACILITY VIA W/C.
== END 2019-01-24 14:50 | DRG 183 ==
LOC: ER 15:43 → SURS 17:33 → ICUE 17:33 → PCU 17:33 → SURS 20:41 → ICUE 01-19 10:22 → PCU 01-21 17:52 → MEDS 01-23 19:52 → ENPENDDIS 01-24 09:30 → MEDS 01-24 14:50
PROVIDERS: Emergency Medicine; Internal Medicine Critical Care Medicine; Internal Medicine Gastroenterology; Pharmacist; ADMIT Family Medicine
PROC: 0W9930Z Drainage of Right Pleural Cavity with Drainage Device, Percutaneous Approach (ICD-10-PCS; principal; 2019-01-18)
PROC: 0D738ZZ Dilation of Lower Esophagus, Via Natural or Artificial Opening Endoscopic (ICD-10-PCS; 2019-01-22)
DX: S22.41XA Multiple fractures of ribs, right side, initial encounter for closed fracture (principal); K25.4 Chronic or unspecified gastric ulcer with hemorrhage; A41.9 Sepsis, unspecified organism; R65.20 Severe sepsis without septic shock; F10.239 Alcohol dependence with withdrawal, unspecified; K92.0 Hematemesis; D62 Acute posthemorrhagic anemia; T79.7XXA Traumatic subcutaneous emphysema, initial encounter; Z79.84 Long term (current) use of oral hypoglycemic drugs; I25.10 Atherosclerotic heart disease of native coronary artery without angina pectoris; Z95.1 Presence of aortocoronary bypass graft; Z86.73 Personal history of transient ischemic attack (TIA), and cerebral infarction without residual deficits; Z79.82 Long term (current) use of aspirin; M19.90 Unspecified osteoarthritis, unspecified site; I25.2 Old myocardial infarction; N40.0 Benign prostatic hyperplasia without lower urinary tract symptoms; Z87.891 Personal history of nicotine dependence; I16.0 Hypertensive urgency; E11.65 Type 2 diabetes mellitus with hyperglycemia; W18.30XA Fall on same level, unspecified, initial encounter; Y92.002 Bathroom of unspecified non-institutional (private) residence as the place of occurrence of the external cause; K70.30 Alcoholic cirrhosis of liver without ascites; Z90.49 Acquired absence of other specified parts of digestive tract; N40.1 Benign prostatic hyperplasia with lower urinary tract symptoms; N52.9 Male erectile dysfunction, unspecified; R00.0 Tachycardia, unspecified; K52.9 Noninfective gastroenteritis and colitis, unspecified; I95.9 Hypotension, unspecified; N18.3 Chronic kidney disease, stage 3 (moderate); E11.22 Type 2 diabetes mellitus with diabetic chronic kidney disease; R09.02 Hypoxemia; Y90.0 Blood alcohol level of less than 20 mg/100 ml; I12.9 Hypertensive chronic kidney disease with stage 1 through stage 4 chronic kidney disease, or unspecified chronic kidney disease
CPT/HCPCS: 32551; 36415; 51702; 71045; 71046; 71101; 80048; 80053; 80076; 80202; 81001; 82140; 82565; 82947; 83036; 83605; 83690; 83735; 83880; 84100; 84145; 84443; 84484; 85025; 85610; 85730; 87081; 93005; 93010; 94760; 96374-59; 96375-59; 97110; 97162; 97166; 97530; 97535; 99285-25; A9270; C1726; C1751; C9113; G0480; J0360; J0780; J1170; J1940; J2060; J2405; J2543; J2550; J2704; J2765; J3010; J3370; J3411; J3475; J7030; J7042; J7050; J7120

== ENCOUNTER 2019-07-16 02:30 | Emergency (ER) | payer OTHER, MEDICARE ==
[~2019-07-16] VITALS: Ht 165.1 cm; Wt 86.2 kg
[~2019-07-16 02:30] MED LIST changes: +ACET500 PO; +AMOCLA875 PO; +Aspir 8181 MG PO; +B-1100 MG PO; +CALCITRATE200 MG PO; +Culturelle1 CAP PO; +HYDMOR2 PO; +HYDR10 PO; +Humalog100 UNIT/1 SC; +INSULANPEN SC; +LISI20 PO; +LORA1 PO; +METF500 PO; +METO50 PO; +MUPIROCIN1 GM; +OMEPRAZOLE20 MG PO; +PROM25 PO; +SENN187 PO; +SILD50TA PO; +TRAZ50 PO; +Zantac150 MG PO
[2019-07-16] MEDS ORDERED: Percocet 5-3251 EACH PO (04:32)
== END 2019-07-16 05:30 | disposition home or self-care (01) ==
LOC: ER 02:30
DX: S01.01XA Laceration without foreign body of scalp, initial encounter (principal); S39.012A Strain of muscle, fascia and tendon of lower back, initial encounter; S40.011A Contusion of right shoulder, initial encounter; F10.129 Alcohol abuse with intoxication, unspecified; E11.9 Type 2 diabetes mellitus without complications; I25.10 Atherosclerotic heart disease of native coronary artery without angina pectoris; N40.0 Benign prostatic hyperplasia without lower urinary tract symptoms; Z86.73 Personal history of transient ischemic attack (TIA), and cerebral infarction without residual deficits; Z87.891 Personal history of nicotine dependence; Z86.19 Personal history of other infectious and parasitic diseases; Z88.6 Allergy status to analgesic agent; Z79.899 Other long term (current) drug therapy; Z79.82 Long term (current) use of aspirin; Z79.4 Long term (current) use of insulin; W19.XXXA Unspecified fall, initial encounter
CPT/HCPCS: 12001; 12011; 36415; 70450; 72100; 72125; 96374-59; 99284-25; J3010

== ENCOUNTER 2019-07-18 19:24 | Inpatient (IN) | payer OTHER, MEDICARE ==
[~2019-07-18] VITALS: Ht 157.5 cm; Wt 84.5 kg
[~2019-07-18 19:24] MED LIST changes: +Percocet 5-3251 EACH PO
[2019-07-18 19:52] LABS: BASOPHILS ABSOLUTE AUTO 0.03 K/mm3 (0.00-0.23); BASOPHILS PERCENT AUTO 0 % (0-2); EOSINOPHILS ABSOLUTE AUTO 0.23 K/mm3 (0.00-0.68); EOSINOPHILS PERCENT AUTO 2 % (0-6); Hematocrit 36.2 % (37.0-53.0); Hemoglobin 12.2 g/dL (13.5-17.5); IMMATURE GRAN ABSOLUTE AUTO 0.09 K/mm3 (0.00-0.10); IMMATURE GRAN PERCENT AUTO 1 % (0-1); LYMPHOCYTES ABSOLUTE AUTO 2.17 K/mm3 (0.84-5.20); LYMPHOCYTES PERCENT AUTO 15 % (21-46); MONOCYTES ABSOLUTE AUTO 1.54 K/mm3 (0.16-1.47); MONOCYTES PERCENT AUTO 11 % (4-13); Mean Corpuscular HGB 34.2 pg (26.0-34.0); Mean Corpuscular HGB Conc 33.7 g/dL (31.5-36.5); Mean Corpuscular Volume 101 fL (80-100); Mean Platelet Volume 11.4 fL (9.1-12.4); NEUTROPHILS PERCENT AUTO 72 % (41-73); Platelet Count 179 K/mm3 (150-400); RDW Coefficient Variation 13.2 % (11.7-14.2); RDW Standard Deviation 49.4 fL (35.1-46.3); Red Blood Cell Count 3.57 M/mm3 (4.30-5.90); White Blood Cell Count 14.46 K/mm3 (4.00-11.30)
[2019-07-18 20:06] LABS: International Normalized Ratio 0.94; Prothrombin Time Results 10.1 Sec (9.7-11.5)
[2019-07-18 20:18] LABS: Alanine Aminotransfer (ALT/SGP 32 U/L (12-78); Albumin, Blood 3.3 g/dL (3.4-5.0); Albumin/Globulin Ratio 0.8 (0.8-1.8); Alk Phos 67 U/L (50-136); Anion Gap 4 mmol/L (6-16); Aspartate Aminotrans (AST/SGOT 14 U/L (12-37); Bilirubin, Total 0.6 mg/dL (0.1-1.0); Blood Urea Nitrogen 63 mg/dL (8-24); Bun/Creatinine Ratio 33.2 (12.0-20.0); CO2, Blood 29 mmol/L (21-32); Calcium, Blood 8.9 mg/dL (8.5-10.1); Chloride, Blood 102 mmol/L (98-108); Ethanol (Alcohol), Blood, Med <3 mg/dL; Globulin, Blood 4.1 g/dL (2.2-4.0); Glomerular Filtration Rate 36 (60-); Glucose, Blood 178 mg/dL (70-99); Potassium, Blood 4.9 mmol/L (3.5-5.5); Sodium, Blood 135 mmol/L (136-145); Total Protein, Blood 7.4 g/dL (6.4-8.2); Troponin I <0.015 ng/mL (0.000-0.040)
[2019-07-18 21:35] LABS: Source, Urine Clean Catch
[2019-07-18 21:39] LABS: Bilirubin, Urine Neg (Neg); Blood, Urine 4+ (Neg); Glucose Qualitative, Urine Neg (Neg); Ketones, Urine Neg (Neg); Leukocyte Esterase, Urine Neg (Neg); Nitrite, Urine Neg (Neg); Protein, Urine 3+ (Neg); Specific Gravity, Urine 1.015 (1.003-1.022); Urobilinogen, Urine NORM (Normal)
[2019-07-18] MEDS ORDERED: AMLO5 PO (21:40)
[2019-07-18] MEDS ORDERED: CELECOXIB200 M1 PO (21:41)
[2019-07-18 21:42] LABS: Appearance, Urine Clear (Clear); Color, Urine Yellow (P-Yellow)
[2019-07-18] MEDS ORDERED: CITA20 PO (21:42)
[2019-07-18 21:45] LABS: Amorphous Light (0-Heavy); Bacteria Rare /hpf; Squamous Epithelial Cells Rare /hpf (Few); White Blood Cells, Urine Rare /hpf (0-5)
[2019-07-19 04:54] LABS: BASOPHILS ABSOLUTE AUTO 0.02 K/mm3 (0.00-0.23); BASOPHILS PERCENT AUTO 0 % (0-2); EOSINOPHILS ABSOLUTE AUTO 0.09 K/mm3 (0.00-0.68); EOSINOPHILS PERCENT AUTO 1 % (0-6); Hematocrit 33.8 % (37.0-53.0); Hemoglobin 11.2 g/dL (13.5-17.5); IMMATURE GRAN ABSOLUTE AUTO 0.04 K/mm3 (0.00-0.10); IMMATURE GRAN PERCENT AUTO 0 % (0-1); LYMPHOCYTES ABSOLUTE AUTO 1.73 K/mm3 (0.84-5.20); LYMPHOCYTES PERCENT AUTO 16 % (21-46); MONOCYTES ABSOLUTE AUTO 1.09 K/mm3 (0.16-1.47); MONOCYTES PERCENT AUTO 10 % (4-13); Mean Corpuscular HGB 33.5 pg (26.0-34.0); Mean Corpuscular HGB Conc 33.1 g/dL (31.5-36.5); Mean Corpuscular Volume 101 fL (80-100); Mean Platelet Volume 10.9 fL (9.1-12.4); NEUTROPHILS ABSOLUTE AUTO 8.05 K/mm3 (1.96-9.15); NEUTROPHILS PERCENT AUTO 73 % (41-73); Platelet Count 159 K/mm3 (150-400); RDW Standard Deviation 48.9 fL (35.1-46.3); Red Blood Cell Count 3.34 M/mm3 (4.30-5.90); White Blood Cell Count 11.02 K/mm3 (4.00-11.30)
[2019-07-19 05:14] LABS: Bun/Creatinine Ratio 37.4 (12.0-20.0); Calcium, Blood 8.7 mg/dL (8.5-10.1); Creatinine, Blood 1.47 mg/dL (0.60-1.20); Potassium, Blood 5.1 mmol/L (3.5-5.5)
--- NOTE | 2019-07-19 07:54 | NUR ---
PT NEW ADMIT THIS SHIFT FOR R HIP FX. PT A/O. VSS, HR SINUS TACH 100 PER TELE MONITOR. RLE SHORTENED/EXT ROTATED, 1+ EDEMA NOTED TO R FOOT. PT WIGGLES TOES, DENIES N/T, CAP REFILL WNL. PAIN MGD PER EMAR, PT SHIFTING SELF IN BED. PT NPO POST MIDNIGHT, ORTHO CONSULT CALLED TO [facility]. CIWAA 0. PT USING CALL LIGHT FOR ASSISTANCE, REPORT GIVEN TO DAY RN.
[2019-07-19 13:30] LABS: Source, Urine Catheter
[2019-07-19 13:33] LABS: Bilirubin, Urine Neg (Neg); Blood, Urine 2+ (Neg); Glucose Qualitative, Urine 1+ (Neg); Ketones, Urine Neg (Neg); Leukocyte Esterase, Urine Neg (Neg); Nitrite, Urine Neg (Neg); Protein, Urine 2+ (Neg); Specific Gravity, Urine 1.015 (1.003-1.022); Urobilinogen, Urine NORM (Normal)
[2019-07-19 13:40] LABS: Appearance, Urine Clear (Clear); Color, Urine Yellow (P-Yellow)
[2019-07-19 13:41] LABS: Amorphous Light (0-Heavy); Bacteria Few /hpf; Red Blood Cells, Urine 0-2 /hpf (0-2); Squamous Epithelial Cells Not Seen /hpf (Few); White Blood Cells, Urine 0-2 /hpf (0-5)
--- NOTE | 2019-07-19 16:42 | NUR ---
IV REMOVED FROM LEFT AC. THE IV SITE WAS WNL AND FLUSHING. IT WAS A FIELD START IV AND NEEDED REMOVED PRIOR TO 24 HOURS STAY.
--- NOTE | 2019-07-19 16:44 | NUR ---
PT ARRIVED BACK FROM SURGERY AT APPROXIMATELY 1630. PT IS ALERT AND ORIENTED. HE DENIES PAIN. HE REQUESTED FLUIDS, THEY WERE PROVIDED. VSS. WILL CONTINUE TO MONITOR.
--- NOTE | 2019-07-19 16:44 | NUR ---
PT ARRIVED BACK TO HIS ROOM FROM SURGERY AT 1630 A/O X 4. HE STATED THAT HE FELT LIKE HE COULD WALK HOME AND FELT LIKE DANCING. O2 SAT IS 95% ON RA, RR 16, BP 112/58, AND PULSE 92. SURGICLE SIT DRESSINGS ON R HIP AND THIGH ARE C/D/I, NO SWELLING OR BRUISING. PT DENIES PAIN.
--- NOTE | 2019-07-19 18:22 | NUR ---
Shift Summary MR. VIEYRA HAD R HIP NAILING SURGERY TODAY. HE RETURNED FROM SURGERY A/O X4. HE STATED HE FELT LIKE HE COULD WALK HOME AND DANCE. HE DENIES ANY PAIN. HE WT BEARING TOLERATED. HE IS EATING AND SWALLOWING PILLS OKAY. HE IS POLITE AND COOPERATIVE. 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 HAS Hx of BPH, HEP C, HI, & BPH. CHRISTINE IS IN PLACE.
--- NOTE | 2019-07-20 06:31 | NUR ---
UPDATE GIVEN TO SHUN VIA PHONE. WILL CONTINUE TO MONITOR.
--- NOTE | 2019-07-20 06:32 | NUR ---
CALL RECIEVED FROM JONAH, PCU ON TELEMETRY STATING THE PT'S HR IS SUSTAINING IN 130'S AND IN INCREASING TO 140'S TO 150'S. WILL CONTINUE TO MONITOR.
--- NOTE | 2019-07-20 07:25 | NUR ---
SHIFT SUMMARY SITTING UP IN CHAIR AT BEDSIDE AFTER VOMITING MULTIPLE TIMES AND PARTIAL BATH COMPLETED. FIRST DOSE OF PROTONIX GIVEN IVP PER MD ORDERS. MILD CONFUSION NOTED INTERMITTENTLY, ABLE TO BE REORIENTED AT TIMES. ELEVATED HR REPORTED PER TT HAS RESILVED AFTER PT WAS VERBALLY COMFORTED. DENIES FURTHER NEEDS OR WANTS AT THIS TIME. SAFETY MEASURES IN PLACE. WILL CONTINUE TO MONITOR AND GIVE HAND OFF TO ONCOMING SHIFT USING SBAR DURING BEDSIDE REPORT.
--- NOTE | 2019-07-20 11:32 | NUR ---
DR RENAE HERE TO SEE PT, DISCUSSED PT'S STATUS, REPORTS WILL PLACE ORDERS.
--- NOTE | 2019-07-20 11:46 | NUR ---
07/20/19 1146 Yoselin Oreilly VERIFICATIONS: EDIT CHART.
[2019-07-20 13:16] LABS: Creatinine, Blood 1.29 mg/dL (0.60-1.20); Magnesium, Blood 1.9 mg/dL (1.6-2.4); Potassium, Blood 4.4 mmol/L (3.5-5.5)
--- NOTE | 2019-07-20 13:40 | NUR ---
RUPESH FROM LAB CALLED WITH CRITICAL TROPONIN OF 0.583, DISCUSSED WITH HAND BENDER J.B.B.. DR RENAE CALLED, REPORTS TO HAVE EKG COMPLETED. HAND BENDER CALLED BIOSTATISTICS PROFESSOR.
[2019-07-20 13:46] LABS: Troponin I 0.583 ng/mL (0.000-0.040)
--- NOTE | 2019-07-20 13:47 | NUR ---
DISCUSSED PT'S LAB VALUE WITH NURSING INSURANCE LOSS CONTROL SURVEYOR. EKG BEING COMPLETED BY FINE CHEMICALS OPERATOR.
--- NOTE | 2019-07-20 14:00 | NUR ---
PT DENIES CP. REPORTS HAVING EMESIS WITH ABD PAIN. PT CONT TO REPORT NOT WANTING NAUSEA MEDICATION UNTIL AFTER HAVING XRAY. [facility] REPORTS OBTAINING ORDER FOR ECHO.
--- NOTE | 2019-07-20 14:50 | NUR ---
ECHO BEING COMPLETED, PT BEEN ASSISTED FROM CHAIR BACK TO BED WITHOUT DIFFICULTY. PT CONT TO DENY HAVING CP.
--- NOTE | 2019-07-20 16:14 | NUR ---
SHIFT SUMMARY PT RESTING QUIETLY NOW. PT WAS HAVING BROWN LIQUID EMESIS EARLIER TODAY. PT BEEN MED PRN FOR NAUSEA/EMESIS. PT REPORTED EARLIER THAT HE DID NOT WANT ANY FURTHER NAUSEA MEDICATION UNTIL AFTER HE HAD HIS XRAY. PT HAD CRITICAL HIGH TROPONIN TODAY. DR RENAE WAS NOTIFIED. EKG AND ECHO WAS COMPLETED, DR HAHN. PT BEEN RESTING QUIETLY SINCE BACK TO BED. PAS IN PLACE. CALL LIGHT IN REACH. ALARM IN PLACE.
--- NOTE | 2019-07-20 16:49 | NUR ---
PT REPORTS STOMACH FEELING BETTER AT THIS TIME. PT REPORTS HAVING HAD XRAY.
--- NOTE | 2019-07-20 17:09 | NUR ---
DR RENAE HERE AT DESK WHILE LAB NOTIFIED RN OF CRITICAL HIGH TROPONIN. DR RENAE REPORTS SEEING LAB VALUES AND REPORTS TO TRANSFER PT TO PCU, DISCUSSED WITH DIVISIONAL HUMAN RESOURCES DIRECTOR. NURSING VP ACCOUNT DIRECTOR NOTIFIED.
[2019-07-20 17:15] LABS: Mean Platelet Volume 10.8 fL (9.1-12.4); Platelet Count 169 K/mm3 (150-400)
[2019-07-20 17:39] LABS: International Normalized Ratio 1.01; Prothrombin Time Results 10.8 Sec (9.7-11.5)
--- NOTE | 2019-07-20 17:59 | NUR ---
PT TO BE GOING TO ICU PCU STATUS TO ROOM ICU 3. REPORT GIVEN ICU ACCEPTING RN. WILL TRANSFER PT IN BED.
--- NOTE | 2019-07-20 18:22 | NUR ---
PT TRANSFERRED TO ICU 3, MOVED TO ICU BED WITH NADEGE ASSIST. NANCI IN PLACE. BELONGINGS SENT WITH PT. CHART AND MEDS GIVEN TO HOIST OPERATOR. TELE RETURNED TO PCU. CORRECTION OFFICER HEAD ASSISTED WITH TRANSFER.
--- NOTE | 2019-07-20 18:32 | NUR ---
TRANSFER IN/ SHIFT SUMMARY PT TRANSFERED INTO ICU 3 AT 1810 PCU STATUS. PT ARRIVES ALERT, ORIENTED, AND TALKATIVE. PT DENIES ANY PAIN, NAUSEA, OR SOB AT THIS TIME. VITAL SIGNS STABLE. PT ON ROOM AIR. HEPARIN GTT INFUSING AT 13 UNITS/KG/HR PER PHARMACY. PT WITH CHRISTINE IN PLACE WITH CLEAR YELLOW OUTPUT NOTED. PT S/P RIGHT HIP SURGERY WITH DRESSINGS TO RIGHT HIP AND LEG C/D/I. PT ASSISTED WITH TURNING IN BED. WILL CONTINUE TO MONITOR AND REPORT OFF TO ONCOMING RN.
--- NOTE | 2019-07-20 20:00 | NUR ---
ASSUMPTION OF CARE: PT A&O. AWAKE IN BED. IN SR WITH OCC PACS. HR IN THE 60S, SBP IN THE 110S. ON RA. SPO2 > 90%. LUNG SOUNDS CLEAR. PT HAS 2 PIVS IN LFA. CHRISTINE IN PLACE. PT IS S/P R HIP FX/SURGERY. IS WEIGHT-BEARING TOLERATED. DRESSING TO R HIP IS CLEAN AND INTACT. PT DOES C/O BACK AND HIP PAIN THAT IS WELL MANAGED WITH PAIN MEDS. TROPONINS ELEVATED TODAY BUT NO C/O CP OR N/V. HEPARIN IS INFUSING AT 13U AND LR AT 75MLS/HR. BED IS IN LOWEST POSITION, CALL LIGHT IN REACH.
--- NOTE | 2019-07-21 06:13 | NUR ---
SHIFT SUMMARY: NO ACUTE CHANGES T/O SHIFT. PT WAS INTERMITTENTLY PAINFUL BUT PAIN WAS RELIEVED WITH PAIN MEDS. PT IS WEIGHT BEARING TOLERATED HOWEVER PT WAS PAINFUL WITH SLIGHT REPOSITIONING. LUNG SOUNDS ARE CLEAR. A FEW EPISODES OF DESATS WHILE SLEEPING SO 02 2LNC PLACED ON PT. PT HAVING OCC PACS. SBP AND HR STABLE. NO C/O OF CP OR N/V. TROPONINS WENT FROM 0.8-0.584 THIS AM. [address]RISTINE IN PLACE. 2 PIV TO LFA. INFUSING WITH HEPARIN AT 15U AND LR AT 75MLS/HR. WILL PASS REPORT TO ONCOMING SHIFT
--- NOTE | 2019-07-21 08:05 | NUR ---
AM ASSESSMENT: Pt dozing on and off in bed at this time. Wakes to verbal stimulus. States his pain is an 8/10 in hip and back. Face scale is a 2/10. WIll treat per orders for pain. R hip with aquaceal dressings C/D/I. Pulses palp. Pt denies any SOB or chest pain. States that he feels much better then yesterday. Pt NPO for cardiology CX. Denies any needs. Will continue to monitor. Call light in reach.
[2019-07-21 09:23] LABS: BASOPHILS ABSOLUTE AUTO 0.01 K/mm3 (0.00-0.23); BASOPHILS PERCENT AUTO 0 % (0-2); EOSINOPHILS ABSOLUTE AUTO 0.23 K/mm3 (0.00-0.68); EOSINOPHILS PERCENT AUTO 4 % (0-6); Hematocrit 27.9 % (37.0-53.0); Hemoglobin 9.3 g/dL (13.5-17.5); IMMATURE GRAN ABSOLUTE AUTO 0.03 K/mm3 (0.00-0.10); IMMATURE GRAN PERCENT AUTO 1 % (0-1); LYMPHOCYTES PERCENT AUTO 31 % (21-46); MONOCYTES ABSOLUTE AUTO 0.63 K/mm3 (0.16-1.47); MONOCYTES PERCENT AUTO 10 % (4-13); Mean Corpuscular HGB 33.7 pg (26.0-34.0); Mean Corpuscular HGB Conc 33.3 g/dL (31.5-36.5); Mean Corpuscular Volume 101 fL (80-100); Mean Platelet Volume 10.6 fL (9.1-12.4); NEUTROPHILS ABSOLUTE AUTO 3.54 K/mm3 (1.96-9.15); NEUTROPHILS PERCENT AUTO 55 % (41-73); Platelet Count 136 K/mm3 (150-400); RDW Coefficient Variation 13.1 % (11.7-14.2); RDW Standard Deviation 48.2 fL (35.1-46.3); Red Blood Cell Count 2.76 M/mm3 (4.30-5.90); White Blood Cell Count 6.44 K/mm3 (4.00-11.30)
[2019-07-21 09:41] LABS: Anion Gap 5 mmol/L (6-16); Blood Urea Nitrogen 34 mg/dL (8-24); Bun/Creatinine Ratio 28.8 (12.0-20.0); CO2, Blood 27 mmol/L (21-32); Calcium, Blood 8.7 mg/dL (8.5-10.1); Chloride, Blood 104 mmol/L (98-108); Creatinine, Blood 1.18 mg/dL (0.60-1.20); Glomerular Filtration Rate >60 (60-); Glucose, Blood 180 mg/dL (70-99); Potassium, Blood 4.2 mmol/L (3.5-5.5); Sodium, Blood 136 mmol/L (136-145)
--- NOTE | 2019-07-21 18:44 | NUR ---
SHift Summary: Pt sitting up in bed finishing dinner at this time. Has done well this shift. States that his pain has been well controlled with oral pain medications. Pt had first portion of stress test this am as well and abd CT. Pt tolerated well. Marcelo cath draining clear yellow urine. Dressing to R hip shows no change. IVF running per orders. Pt has denied CP or SOB throughout the shift. Stable at end of shift. WIll report to night RN.
--- NOTE | 2019-07-21 19:40 | NUR ---
ASSUMED CARE OF PT, REPORT RECEIVED. PT IS RESTING QUIETLY RECLINING IN BED AND WATCHING TV, DENIES N/V, DENIES CP/PRESSURE, DENIES SOB/DYSPNEA, DENIES NUMBNESS/TINGLING, DENIES DIZZINESS/VERTIGO, ADMITS TO BACK PAIN HOWEVER STATES THAT IT IS LOCATED LOW IN HIS L SPINE AND CONSISTENT WITH HIS CHRONIC LOW BACK PAIN. SATS ARE MAINTAINING ON ROOM AIR, NO VISIBLE INCREASED WORK OF BREATHING, LUNGS CLEAR THROUGHOUT WITH DIM BASES BILAT, PT IS SPEAKING IN FULL SENTENCES. SINUS BRADYCARDIA IS NOTED ON MONITOR WITH BBB, PRESSURES MAINTAINING, RATE 50-60S AT THIS TIME, PULSES FULL X 4 EXTREMITIES, SKIN IS PWD. NORMOACTIVE BOWEL TONES, ABD SOFT, NONTENDER TO PALP. CHRISTINE CATHETER IN PLACE DRAINING CLEAR YELLOW URINE TO GRAVITY. AQUACEL DRESSING IS NOTED TO RIGHT HIP, CLEAN DRY AND INTACT WITH MINIMAL BRUISING SURROUNDING DRESSING.
[2019-07-22 05:31] LABS: BASOPHILS ABSOLUTE AUTO 0.01 K/mm3 (0.00-0.23); BASOPHILS PERCENT AUTO 0 % (0-2); EOSINOPHILS ABSOLUTE AUTO 0.32 K/mm3 (0.00-0.68); EOSINOPHILS PERCENT AUTO 6 % (0-6); Hematocrit 23.8 % (37.0-53.0); Hemoglobin 8.1 g/dL (13.5-17.5); IMMATURE GRAN ABSOLUTE AUTO 0.02 K/mm3 (0.00-0.10); IMMATURE GRAN PERCENT AUTO 0 % (0-1); LYMPHOCYTES ABSOLUTE AUTO 1.93 K/mm3 (0.84-5.20); LYMPHOCYTES PERCENT AUTO 35 % (21-46); MONOCYTES ABSOLUTE AUTO 0.48 K/mm3 (0.16-1.47); MONOCYTES PERCENT AUTO 9 % (4-13); Mean Corpuscular HGB 34.3 pg (26.0-34.0); Mean Corpuscular Volume 101 fL (80-100); Mean Platelet Volume 10.3 fL (9.1-12.4); NEUTROPHILS ABSOLUTE AUTO 2.75 K/mm3 (1.96-9.15); NEUTROPHILS PERCENT AUTO 50 % (41-73); Platelet Count 135 K/mm3 (150-400); RDW Standard Deviation 47.5 fL (35.1-46.3); Red Blood Cell Count 2.36 M/mm3 (4.30-5.90); White Blood Cell Count 5.51 K/mm3 (4.00-11.30)
[2019-07-22 05:52] LABS: Alanine Aminotransfer (ALT/SGP 21 U/L (12-78); Albumin, Blood 2.1 g/dL (3.4-5.0); Albumin/Globulin Ratio 0.7 (0.8-1.8); Alk Phos 41 U/L (50-136); Anion Gap 3 mmol/L (6-16); Aspartate Aminotrans (AST/SGOT 17 U/L (12-37); Bilirubin, Total 0.5 mg/dL (0.1-1.0); Blood Urea Nitrogen 36 mg/dL (8-24); CO2, Blood 29 mmol/L (21-32); Calcium, Blood 8.1 mg/dL (8.5-10.1); Chloride, Blood 103 mmol/L (98-108); Globulin, Blood 3.1 g/dL (2.2-4.0); Glomerular Filtration Rate >60 (60-); Glucose, Blood 177 mg/dL (70-99); Potassium, Blood 4.6 mmol/L (3.5-5.5); Sodium, Blood 135 mmol/L (136-145); Total Protein, Blood 5.2 g/dL (6.4-8.2)
--- NOTE | 2019-07-22 05:58 | NUR ---
PT RESTS QUIETLY THROUGHOUT SHIFT, PAIN CONTROLLED WITH NORCO, 2 TABLETS, ADMIN AT 2215. LUNGS REMAIN CLEAR THROUGHOUT, SATS MAINTAIN ON ROOM AIR WHEN PT IS AWAKE, FREQUENT DESATS TO HIGH 80S WITH SLEEP, OXYGEN VIA NASAL CANNULA AT 1 L/MIN WITH SLEEP AND PT MAINTAINS SATS. PT NOTED TO BE BRADYCARDIC TO THE LOW 50S AT BEGINNING OF SHIFT, HE DENIED DIZZINESS/VERTIGO, DENIED CP/PRESSURE, DENIED NUMBNESS/TINGLING, DENIED SOB/DYSPNEA, BRADYCARDIA IMPROVED THROUGHOUT NOC AND CURRENT RATE IS 60-70S. HEPARIN GTT CONTINUES, RATE INCREASED TO 18 UNITS/KG/HR PER PHARMACY. PT INITIALLY RELUCTANT TO REPOSITION HOWEVER IMPROVED WITH EDUCATION REGARDING INCREASED RISK FOR PRESSURE ULCERS WITHOUT POSITION CHANGES.
--- NOTE | 2019-07-22 07:15 | NUR ---
[place] of Care: Care assumed at 0700hr. Patient alert and oriented x4, sitting upright in bed watching TV. C/o pain to lower back and right hip, prn Holland x2 tabs given shortly after shift change. Incision's and silvadine dressings x2 to rt hip r/t hip fx/surgery. Dressing show small amount of drainage, but remain intact. No s/s of active bleeding/hematoma. Heart rhythm shows sinus rhythm with BBB and occasional PAC's, BP stable. Denies any chest pain or discomfort, SpO2-94-96% on RA. Heparin gtt infusing per EMAR, next PTT scheduled for 1300hr. Marcelo cath in place, draining clear yellow urine. Call light in reach, makes needs known. Will continue to monitor.
--- NOTE | 2019-07-22 11:32 | NUR ---
Stress Test: Patient received chemical stress test this morning in room at approx 0830hr. Patient C/o small amount of chest pressure, HR slightly increased to 90's. Chest pressure quickly resolved. Patient then given breakfast tray and cup of coffee, good apatite noted. Dr. Singletary to room at approx 1100hr. Received orders to transfer patient back to surgical status and to d/c IV heparin gtt. Patient remains stable at this time. Will continue to monitor.
--- NOTE | 2019-07-22 13:26 | NUR ---
Transfer: Bed assignment received (214). Report called to Barbara JIN on Surgical floor. Patient transferred via bed at 1315hr to room 214 without difficulty. Belonging's sent with patient to room.
--- NOTE | 2019-07-22 14:29 | NUR ---
TRANSFER PT TRANSFERED TO UNIT FROM ICU AT APROX 1315. REPORT RECIEVED FROM FIDELINA JIN. CHRISTINE REMOVED UPON ARRIVAL TO UNIT. AQUACEL DRESSING X'S 2 TO R HIP WITH MOD AMOUNT OF DRAINAGE.
[2019-07-23 04:24] LABS: BASOPHILS ABSOLUTE AUTO 0.01 K/mm3 (0.00-0.23); BASOPHILS PERCENT AUTO 0 % (0-2); EOSINOPHILS ABSOLUTE AUTO 0.26 K/mm3 (0.00-0.68); EOSINOPHILS PERCENT AUTO 6 % (0-6); Hematocrit 24.2 % (37.0-53.0); IMMATURE GRAN ABSOLUTE AUTO 0.03 K/mm3 (0.00-0.10); IMMATURE GRAN PERCENT AUTO 1 % (0-1); LYMPHOCYTES ABSOLUTE AUTO 1.41 K/mm3 (0.84-5.20); LYMPHOCYTES PERCENT AUTO 32 % (21-46); MONOCYTES ABSOLUTE AUTO 0.48 K/mm3 (0.16-1.47); MONOCYTES PERCENT AUTO 11 % (4-13); Mean Corpuscular HGB 32.8 pg (26.0-34.0); Mean Corpuscular HGB Conc 33.1 g/dL (31.5-36.5); Mean Corpuscular Volume 99 fL (80-100); NEUTROPHILS ABSOLUTE AUTO 2.24 K/mm3 (1.96-9.15); NEUTROPHILS PERCENT AUTO 51 % (41-73); Platelet Count 148 K/mm3 (150-400); RDW Coefficient Variation 12.9 % (11.7-14.2); RDW Standard Deviation 46.5 fL (35.1-46.3); Red Blood Cell Count 2.44 M/mm3 (4.30-5.90); White Blood Cell Count 4.43 K/mm3 (4.00-11.30)
[2019-07-23 04:42] LABS: Anion Gap 2 mmol/L (6-16); Blood Urea Nitrogen 24 mg/dL (8-24); Bun/Creatinine Ratio 20.3 (12.0-20.0); CO2, Blood 29 mmol/L (21-32); Calcium, Blood 8.5 mg/dL (8.5-10.1); Chloride, Blood 102 mmol/L (98-108); Creatinine, Blood 1.18 mg/dL (0.60-1.20); Glomerular Filtration Rate >60 (60-); Glucose, Blood 188 mg/dL (70-99); Potassium, Blood 4.5 mmol/L (3.5-5.5); Sodium, Blood 133 mmol/L (136-145)
--- NOTE | 2019-07-23 05:11 | NUR ---
SHIFT SUMMARY PATIENT IN CHAIR AT THE BEGINNING OF SHIFT. PATIENT IS VERY WEAK AND UNSTEADY WHILE TRANSFERING TO THE BED WITH GAIT BELT AND WALKER. WEIGHT BEARING TOLERATED ON RIGHT LEG. PATIENT HAS CONSTANT LOWER BACK AND RIGHT HIP PAIN. MEDICATED PER EMAR WITH 2 NORCO TABLETS. PATIENT IS ON TELE SHOWING BBB WITH FREQUENT PACS. NO COMPAINTS OF CP OR SOB. PATIENT RESTED IN BED WELL THROUGHOUT SHIFT WITH MINIMIAL AWAKENINGS. NO ACUTE CHANGES. CALL LIGHT IN REACH.
--- NOTE | 2019-07-23 05:43 | NUR ---
Care performed by dean for student affairs and nurse. Charting and notes all reviewed and approved by this RN.
--- NOTE | 2019-07-23 09:18 | NUR ---
OT IN TO SEE PT.
--- NOTE | 2019-07-23 11:34 | NUR ---
BRIEF DROP IN HR TO 40S PRODUCTION BORING MACHINE OPERATOR REPORTED PT HAD BRIEF HR DROP TO 40S. DR RENAE NOTIFIED BY PRODUCTION BORING MACHINE OPERATOR. PT RESTING W/LIGHTS OFF. CALL LIGHT IN REACH.
--- NOTE | 2019-07-23 19:47 | NUR ---
SUMMARY NO ACUTE CHANGES T/O SHIFT. PT HEAVY TWO PERSON ASSIST. SAT UP IN CHAIR T/O AFTERNOON. MEDICATED PER ORDERS FOR PAIN TO BACK AND RLE. WORKED W/THERAPY. COVERED CBG PER ORDERS. PT HAD INCONTINENT VOID THIS EVENING THAT SOAKED ATTENDS, CHAIR AND FLOOR. NOW BACK IN BED, CALL LIGHT IN REACH. REPORTED TO ONCOMING RN.
--- NOTE | 2019-07-24 03:49 | NUR ---
PT RECIEVED HEPARIN INJECTION PER EMAR AT 2144, PLACED BANDAID OVER SITE AFTER PT BLED THROUGH BLANKET ON BED, AT APPROX 2300. BLED THROUGH BANDAID, PLACED MEDIPORE DRESSING OVER AT APPROX 0100. BLED THROUGH MEDIPORE DRESSING AT 0330, PLACED LARGE ABD DRESSING WITH PRESSURE TAPE OVER. SPOKE WITH DR. ARCHER R/T BLEEDING, ORDERS TO DC HEPARIN AND ADD PT AND APTT LABS FOR AM DRAW. NOTICED NEW BRUISING AROUND R HIP WHILE CHANGIGN AQUACEL DRESSINGS. WILL MONITOR FOR INCREASES IN BRUISING OR INCREASES IN BLEEDING. PT SITTING UP IN BED, DENIES SHORTNESS OF BREATH. ALERT AND ORIENTED.
[2019-07-24 04:10] LABS: BASOPHILS ABSOLUTE AUTO 0.01 K/mm3 (0.00-0.23); BASOPHILS PERCENT AUTO 0 % (0-2); EOSINOPHILS ABSOLUTE AUTO 0.28 K/mm3 (0.00-0.68); EOSINOPHILS PERCENT AUTO 5 % (0-6); Hematocrit 26.3 % (37.0-53.0); Hemoglobin 8.8 g/dL (13.5-17.5); IMMATURE GRAN ABSOLUTE AUTO 0.04 K/mm3 (0.00-0.10); IMMATURE GRAN PERCENT AUTO 1 % (0-1); LYMPHOCYTES ABSOLUTE AUTO 1.58 K/mm3 (0.84-5.20); LYMPHOCYTES PERCENT AUTO 28 % (21-46); MONOCYTES ABSOLUTE AUTO 0.58 K/mm3 (0.16-1.47); MONOCYTES PERCENT AUTO 10 % (4-13); Mean Corpuscular HGB 33.2 pg (26.0-34.0); Mean Corpuscular HGB Conc 33.5 g/dL (31.5-36.5); Mean Corpuscular Volume 99 fL (80-100); NEUTROPHILS ABSOLUTE AUTO 3.08 K/mm3 (1.96-9.15); NEUTROPHILS PERCENT AUTO 55 % (41-73); Platelet Count 163 K/mm3 (150-400); RDW Coefficient Variation 13.2 % (11.7-14.2); Red Blood Cell Count 2.65 M/mm3 (4.30-5.90); White Blood Cell Count 5.57 K/mm3 (4.00-11.30)
[2019-07-24 04:26] LABS: Anion Gap 3 mmol/L (6-16); Blood Urea Nitrogen 25 mg/dL (8-24); Bun/Creatinine Ratio 20.8 (12.0-20.0); CO2, Blood 29 mmol/L (21-32); Calcium, Blood 8.8 mg/dL (8.5-10.1); Chloride, Blood 102 mmol/L (98-108); Glomerular Filtration Rate >60 (60-); Glucose, Blood 194 mg/dL (70-99); International Normalized Ratio 1.01; Potassium, Blood 4.3 mmol/L (3.5-5.5); Prothrombin Time Results 10.8 Sec (9.7-11.5); Sodium, Blood 134 mmol/L (136-145)
--- NOTE | 2019-07-24 05:36 | NUR ---
SHIFT SUMMARY POD 5 R HIP [id number], VSS. AQUACEL CHANGED ON R HIP, NEW BRUISING NOTED AROUND UPPER INCISION SITE. PT MEDICATED FOR PAIN PER EMAR, TOLERATES WELL. PT HELPS WITH REPOSITION AND CHANGES, INC OF VOID. TELE IN PLACE. TOLERATING PO WELL.
--- NOTE | 2019-07-24 18:05 | NUR ---
SUMMARY PT SITTING UP IN BED EATING DINNER. WORKED W/THERAPY IN CHAIR TODAY. MEDICATED PER ORDERS T/O SHIFT FOR BACK PAIN. DISCUSSED CBGS W/DR GALVAN, ORDERS OBTAINED FOR LANTUS. CALL LIGHT IN REACH.
--- NOTE | 2019-07-25 04:39 | NUR ---
SHIFT SUMMARY POD 5 R HIP REPAIR. PT PAINFUL DURING SHIFT. SOME RELIEF WITH REPOSITIONING, MEDICATED PER EMAR. TOLERATING PO WELL, NPO SINCE MIDNIGHT PER ORDERS. AQUACEL DRESSING CHANGED, MODERATE SS DRAINAGE ON DISTAL AQUACEL DRESSING, BRUISING NOTED ON INTERIOR OF R INNER THIGH. PT SLEEPING DURING SHIFT. PLEASANT AND COOPERATIVE WITH ADL'S, INC OF VOID.
[2019-07-25 08:40] LABS: Hematocrit 24.6 % (37.0-53.0); Hemoglobin 8.3 g/dL (13.5-17.5); Mean Corpuscular HGB 33.5 pg (26.0-34.0); Mean Corpuscular HGB Conc 33.7 g/dL (31.5-36.5); Mean Corpuscular Volume 99 fL (80-100); Mean Platelet Volume 10.4 fL (9.1-12.4); Platelet Count 154 K/mm3 (150-400); RDW Coefficient Variation 13.3 % (11.7-14.2); RDW Standard Deviation 48.1 fL (35.1-46.3); Red Blood Cell Count 2.48 M/mm3 (4.30-5.90); White Blood Cell Count 7.63 K/mm3 (4.00-11.30)
--- NOTE | 2019-07-25 08:57 | NUR ---
METOPROLOL GIVEN WITH SIP OF WATER, CALL OUT TO CLARIFY OTHER MEDICATIONS.
--- NOTE | 2019-07-25 09:50 | NUR ---
CARDIAC MEDICATIONS INCLUDING PLAVIX AND ASPIRIN AFTER BEING CLARIFIED WITH [facility], DR GALVAN AND PCU FURNACE FEEDER. DISCUSSED WITH FURNACE FEEDER. GIVEN WITH SIP OF WATER.
--- NOTE | 2019-07-25 12:22 | NUR ---
DR THOMPSON HERE TO SEE PT, SON UPDATED ON PT NOT HEADING TO SURGERY YET BUT THAT HE WILL BE LEAVING THIS ROOM TO HAVE PROCEDURE SOON.
--- NOTE | 2019-07-25 13:01 | NUR ---
PT RECENTLY OUT OF ROOM FOR PROCEDURE BY JESSICA. PT TO GO TO PCU AFTER PROCEDURE AT THIS POINT, CONVALESCENT SITTER TO CALL THIS RN BACK FOR REPORT. PT'S BELONGINGS INCLUDING BAGS; CELL PHONE AND GLASSES WERE PLACED IN BLACK BAG. PT'S MEDICATIONS FROM HOSPITAL PLACED IN GREEN BAG AND PLACED IN DRAWER.
--- NOTE | 2019-07-25 13:31 | NUR ---
ABRASIVE GRADER HELPER CALLED THIS RN AND WAS GIVEN REPORT SHE WILL BE ASSUMING CARE OF PT AFTER PROCEDURE.
--- NOTE | 2019-07-25 15:05 | NUR ---
PT ARRIVAL PT ARRIVED ON UNIT APROX 1500. PT IS A&Ox4, IN A GOOD MOOD AND SINGING. PT'S VS STABLE. TR BAND IS STABLE WITH ARM BOARD, 13MLS OF AIR IN THE TR BAND. WILL CONTINUE TO MONITOR
--- NOTE | 2019-07-25 19:02 | NUR ---
TR band is fully deflated, IV restarted after pt pulled his IV out.
--- NOTE | 2019-07-25 19:22 | NUR ---
SHIFT SUMMARY... PT HAS BECOME SLIGHTLY CONFUSED, PT PULLED HIS IV OUT AND WAS ATTEMPTING TO PULL THE ARM BOARD OFF. PT'S VS STABLE AT THIS TIME, PT IS EASILY REORIENTED. CHARGE NURSE AWARE OF NEW ONSET CONFUSION AND NEW IV STARTED. REPORT WAS CALLED TO RECEIVING RN IN [place]. COBRA PACKET PRINTED. 4 MLS OF AIR WAS REMOVED FROM THE TR BAND BY THIS RN, NO BLEEDING SWELLING OR HEMATOMA NOTED. CALL LIGHT IN REACH WILL CONTINUE TO MONITOR UNTIL REPORT IS GIVEN TO ONCOMING RN
--- NOTE | 2019-07-25 22:03 | NUR ---
CARE ASSUMPTION / UPDATE PT A&O TO SELF AND LOCATION. VSS. L RADIAL ACCESS SITE WNL. TR BAND DEFLATED @ 1900 THEN REMOVED @ APPROX 2030 WNL W/ NO BLEEDING & NO HEMATOMA. ARM BOARD IN PLACE W/ L ARM IN SLING. CALL FROM ROHAN HAMILTON @ APPROX 1950 REPORTING FUNDRAISING SPECIALIST NOT ACCEPTING PT W/ TR BAND IN PLACE EVEN THOUGH TR BAND SET TO COME OFF SHORTLY. MD OVERTON NOTIFIED. MD OVERTON THEN NOTIFYING THIS RN AFTER SPEAKING W/ ROHAN HAMILTON PHYSICIAN THAT PT WILL BE ACCEPTED FOR TRANSFER 07/25 @ 0600.
--- NOTE | 2019-07-26 06:01 | NUR ---
SHIFT SUMMARY PT A&O X4 THIS AM. VSS. MONITOR SHOWS AFIB, HR 80's-110's. SPO2 > 92% ON RA. L RADIAL ACCESS SITE WNL. ARM BOARD REMAINS IN PLACE TO L ARM. PT C/O BACK PAIN, MEDICATED X1 PER PT REQUEST/EMAR THIS SHIFT. PT AWAITING COBRA TRANSFER TO [facility]. WILL CONTINUE TO MONITOR AND PROVIDE CARE UNTIL PT TRANSFER OR REPORT OFF TO DAY SHIFT RN.
--- NOTE | 2019-07-26 06:24 | NUR ---
COBRA TRANSFER ATTEMPT UPDATE REPORT ATTEMPT CALLED @ 614 TO ROHAN HAMILTON W/ RESPONSE FROM PCU SHOT HOLE DRILLER RECYCLING COORDINATOR KEVIN STATING "WE'RE AT [facility], SO I DON'T KNOW WHAT WE'RE GOING TO DO ABOUT THIS." RECYCLING COORDINATOR KEVIN REPORTS HE WILL HAVE THEIR DAY SHIFT PROJECT MANAGEMENT ADVISOR ARIANNA CALL [facility] PCU W/ UPDATE "SOON."
--- NOTE | 2019-07-26 08:52 | NUR ---
AM NOTE... ASSUMED CARE OF PT APROX 0700, PT IS A&Ox4 WITH MOMENTS OF CONFUSION PER REPORT. PT'S VS STABLE. L/S CLEAR T/O, BT PRESENT AND HYPOACTIVE ABD SLIGHTLY FIRM BUT NONTENDER TO PALP. PT HAS TRACE EDEMA TO HIS BLE. RIGHT RADIAL SITE IS INTACT WITH SMALL AMOUNT OF BLOOD FROM LAST NIGHT, ARMBOARD IN PLACE. PT DENIES CHEST PAIN AT THIS TIME. RIGHT HIP DRESSINGS INTACT WITH MODERATE AMOUNT OF DRY BLOOD THAT WAS PRESENT ON ARRIVAL FROM VISITOR SERVICES ASSOCIATE. PT IS C/O OF SEVERE 9/10 PAIN, MEDICATED PER EMAR WILL CONTINUE TO MONITOR.
--- NOTE | 2019-07-26 11:43 | NUR ---
PT COBRA TRANSFER PT COBRA TRANSFER TO [facility]. REPORT WAS CALLED TO RADHA JIN IN THE PCU. PT'S VS STABLE. ALL OF PT'S BELONGINGS PACKED AND SENT WITH THE PT. PT DENIES CHEST PAIN AT THIS TIME. CALLED FAMILY AND GAVE THEM UPDATE AND NEW ROOM NUMBER.
== END 2019-07-26 11:44 | disposition short-term general hospital (02) | DRG 480 ==
LOC: ER 19:24 → ICUE 20:54 → SURS 20:54 → ICUE 07-20 18:00 → SURS 07-22 13:38 → PCU 07-25 12:57
PROVIDERS: Emergency Medicine; Internal Medicine; Internal Medicine Interventional Cardiology; Pharmacist; ADMIT Family Medicine
PROC: 0QS634Z Reposition Right Upper Femur with Internal Fixation Device, Percutaneous Approach (ICD-10-PCS; principal; 2019-07-25)
PROC: B2111ZZ Fluoroscopy of Multiple Coronary Arteries using Low Osmolar Contrast (ICD-10-PCS; 2019-07-25)
PROC: B2181ZZ Fluoroscopy of Left Internal Mammary Bypass Graft using Low Osmolar Contrast (ICD-10-PCS; 2019-07-25)
PROC: B2121ZZ Fluoroscopy of Single Coronary Artery Bypass Graft using Low Osmolar Contrast (ICD-10-PCS; 2019-07-25)
DX: S72.141A Displaced intertrochanteric fracture of right femur, initial encounter for closed fracture (principal); I21.4 Non-ST elevation (NSTEMI) myocardial infarction; E87.1 Hypo-osmolality and hyponatremia; N17.9 Acute kidney failure, unspecified; I47.1 Supraventricular tachycardia; Z79.82 Long term (current) use of aspirin; Z79.4 Long term (current) use of insulin; I25.2 Old myocardial infarction; M19.90 Unspecified osteoarthritis, unspecified site; I25.10 Atherosclerotic heart disease of native coronary artery without angina pectoris; B19.20 Unspecified viral hepatitis C without hepatic coma; E66.9 Obesity, unspecified; Z95.1 Presence of aortocoronary bypass graft; Z68.35 Body mass index [BMI] 35.0-35.9, adult; W18.30XA Fall on same level, unspecified, initial encounter; Y93.9 Activity, unspecified; Y92.9 Unspecified place or not applicable; Z87.891 Personal history of nicotine dependence; N18.3 Chronic kidney disease, stage 3 (moderate); E11.22 Type 2 diabetes mellitus with diabetic chronic kidney disease; N40.0 Benign prostatic hyperplasia without lower urinary tract symptoms; Z86.711 Personal history of pulmonary embolism; G89.29 Other chronic pain; Z86.73 Personal history of transient ischemic attack (TIA), and cerebral infarction without residual deficits; Z90.49 Acquired absence of other specified parts of digestive tract; F10.20 Alcohol dependence, uncomplicated
CPT/HCPCS: 36415; 71045; 73501; 73502; 74018; 74174; 76937; 78452; 80048; 80053; 81001; 82947; 83735; 84484; 85025; 85027; 85049; 85610; 85730; 93005; 93010; 93017; 93306; 93454; 93455; 93567; 96374; 97110; 97116; 97162; 97166; 97530; 97535; 99152; 99153; 99285-25; A9270; A9270-GY; A9500; C1713; C1769; C1887; C1894; C9113; G0480; J0690; J0706; J1100; J1644; J1815; J1885; J2250; J2405; J2704; J2785; J3010; J7030; J7120; Q9967

== ENCOUNTER 2020-03-17 18:46 | Observation (INO) | payer OTHER, MEDICARE ==
[~2020-03-17] VITALS: Ht 167.6 cm; Wt 86.0 kg
[~2020-03-17 18:46] MED LIST changes: -ACET500 PO; +AMLO5 PO; +Acetaminophen325 M1 PO; +CELECOXIB200 M1 PO
[2020-03-17 19:24] LABS: BASOPHILS ABSOLUTE AUTO 0.01 K/mm3 (0.00-0.23); BASOPHILS PERCENT AUTO 0 % (0-2); EOSINOPHILS ABSOLUTE AUTO 0.04 K/mm3 (0.00-0.68); EOSINOPHILS PERCENT AUTO 1 % (0-6); Hematocrit 40.1 % (37.0-53.0); Hemoglobin 13.4 g/dL (13.5-17.5); IMMATURE GRAN ABSOLUTE AUTO 0.02 K/mm3 (0.00-0.10); IMMATURE GRAN PERCENT AUTO 0 % (0-1); LYMPHOCYTES ABSOLUTE AUTO 1.11 K/mm3 (0.84-5.20); LYMPHOCYTES PERCENT AUTO 20 % (21-46); MONOCYTES PERCENT AUTO 5 % (4-13); Mean Corpuscular HGB 32.6 pg (26.0-34.0); Mean Corpuscular HGB Conc 33.4 g/dL (31.5-36.5); Mean Corpuscular Volume 98 fL (80-100); Mean Platelet Volume 11.5 fL (9.1-12.4); NEUTROPHILS PERCENT AUTO 74 % (41-73); Platelet Count 115 K/mm3 (150-400); RDW Coefficient Variation 12.9 % (11.7-14.2); RDW Standard Deviation 45.6 fL (35.1-46.3); Red Blood Cell Count 4.11 M/mm3 (4.30-5.90); White Blood Cell Count 5.68 K/mm3 (4.00-11.30)
[2020-03-17 19:37] LABS: Bilirubin, Total 0.4 mg/dL (0.1-1.0); Bun/Creatinine Ratio 29.8 (12.0-20.0); Calcium, Blood 9.7 mg/dL (8.5-10.1); Creatinine, Blood 1.24 mg/dL (0.60-1.20)
[2020-03-17 19:57] LABS: CPK Creatine Kinase 108 U/L (39-308); Troponin I <0.015 ng/mL (0.000-0.040)
[2020-03-17 20:28] LABS: Source, Urine Clean Catch
[2020-03-17 20:35] LABS: Appearance, Urine Clear (Clear); Bilirubin, Urine Neg (Neg); Blood, Urine 4+ (Neg); Color, Urine Yellow (P-Yellow); Glucose Qualitative, Urine 4+ (Neg); Ketones, Urine Neg (Neg); Leukocyte Esterase, Urine Neg (Neg); Nitrite, Urine Neg (Neg); Protein, Urine 4+ (Neg); Urobilinogen, Urine NORM (Normal)
[2020-03-17 20:40] LABS: Squamous Epithelial Cells Not Seen /hpf (Few); White Blood Cells, Urine 0-2 /hpf (0-5)
[2020-03-17 20:41] LABS: Amorphous Light (0-Heavy); Bacteria Few /hpf
[2020-03-17 20:45] LABS: U Amphetamine Screen Not Detected; U Barbituate Screen Not Detected; U Benzodiazapine Screen Not Detected; U Buprenorphine Screen Not Detected; U Cannabinoids Screen Not Detected; U Cocaine Screen Not Detected; U Methadone Screen Not Detected; U Methamphetamine Screen Not Detected; U Opiates Screen Not Detected; U Oxycodone Screen Not Detected; U Phencyclidine Screen Not Detected; U Propoxyphene Screen Not Detected
[2020-03-18] MEDS ORDERED: A AND D OINTM42.5 G1 TOP (03:35)
[2020-03-18] MEDS ORDERED: BACL10 PO (03:37)
[2020-03-18] MEDS ORDERED: VITAMIN D31000 UNI1 PO (03:38)
[2020-03-18] MEDS ORDERED: DICLOFENAC SOD100 G1 TOP (03:39)
[2020-03-18] MEDS ORDERED: Cymbalta20 MG PO (03:40)
[2020-03-18] MEDS ORDERED: PREG75 PO (03:48)
[2020-03-18] MEDS ORDERED: SILDENAFIL CIT100 MG PO (03:49)
[2020-03-18] MEDS ORDERED: Hytrin2 MG PO (03:50)
[2020-03-18] MEDS ORDERED: THERAGESIC TOP (03:51)
[2020-03-18 03:54] LABS: Influenza A, PCR Negative (NEGATIVE); Influenza B, PCR Negative (NEGATIVE); Resp Syncytial Virus, PCR Negative (NEGATIVE); SARS-Cov-2 (COVID-19) PCR, MMC Negative (NEGATIVE)
[2020-03-18 05:14] LABS: BASOPHILS ABSOLUTE AUTO 0.01 K/mm3 (0.00-0.23); BASOPHILS PERCENT AUTO 0 % (0-2); EOSINOPHILS ABSOLUTE AUTO 0.03 K/mm3 (0.00-0.68); EOSINOPHILS PERCENT AUTO 1 % (0-6); Hematocrit 39.3 % (37.0-53.0); Hemoglobin 13.2 g/dL (13.5-17.5); IMMATURE GRAN ABSOLUTE AUTO 0.03 K/mm3 (0.00-0.10); IMMATURE GRAN PERCENT AUTO 1 % (0-1); LYMPHOCYTES ABSOLUTE AUTO 1.27 K/mm3 (0.84-5.20); LYMPHOCYTES PERCENT AUTO 22 % (21-46); MONOCYTES ABSOLUTE AUTO 0.36 K/mm3 (0.16-1.47); MONOCYTES PERCENT AUTO 6 % (4-13); Mean Corpuscular HGB 32.8 pg (26.0-34.0); Mean Corpuscular HGB Conc 33.6 g/dL (31.5-36.5); Mean Corpuscular Volume 98 fL (80-100); Mean Platelet Volume 11.9 fL (9.1-12.4); NEUTROPHILS ABSOLUTE AUTO 4.08 K/mm3 (1.96-9.15); NEUTROPHILS PERCENT AUTO 71 % (41-73); Platelet Count 128 K/mm3 (150-400); RDW Standard Deviation 45.6 fL (35.1-46.3); Red Blood Cell Count 4.03 M/mm3 (4.30-5.90); White Blood Cell Count 5.78 K/mm3 (4.00-11.30)
[2020-03-18 05:42] LABS: Alanine Aminotransfer (ALT/SGP 56 U/L (12-78); Albumin, Blood 3.7 g/dL (3.4-5.0); Albumin/Globulin Ratio 0.9 (0.8-1.8); Alk Phos 87 U/L (50-136); Anion Gap 11 mmol/L (6-16); Aspartate Aminotrans (AST/SGOT 24 U/L (12-37); Bilirubin, Total 0.7 mg/dL (0.1-1.0); Blood Urea Nitrogen 34 mg/dL (8-24); Bun/Creatinine Ratio 29.8 (12.0-20.0); CO2, Blood 21 mmol/L (21-32); Calcium, Blood 9.5 mg/dL (8.5-10.1); Chloride, Blood 107 mmol/L (98-108); Creatinine, Blood 1.14 mg/dL (0.60-1.20); Glomerular Filtration Rate >60 (60-); Glucose, Blood 341 mg/dL (70-99); Potassium, Blood 4.6 mmol/L (3.5-5.5); Sodium, Blood 139 mmol/L (136-145); Total Protein, Blood 7.7 g/dL (6.4-8.2)
--- NOTE | 2020-03-18 06:04 | NUR ---
TRAVEL DIRECTOR SUMMARY NEW ADMIT FROM THE ED TONIGHT. PT WAS FOUND DOWN AT HOME BY ROOMMATE AFTER SPENDING UNKNOWN AMOUNT OF TIME DOWN. SPOKE TO PT'S SON MIRIAN EDUARDO ON THE PHONE WHO STATED THAT HE ATTEMPTED TO CALL THE PT SEVERAL TIMES AROUND 1100 WITH NO ANSWER SO PT COULD HAVE BEEN DOWN SINCE THEN. PT VERY CONFUSED BUT CAN ANSWER MOST BASIC QUESTIONS. PT OFTEN REPEATS THE ANSWER OF ONE QUESTION FOR DIFFERENT QUESTIONS. HOWEVER, PT KNEW HE WAS AT THE HOSPITAL IN [place] AND KNEW HIS NAME AND . PT WAS CONFUSED TO WHY HE WAS HERE OR HOW HE GOT HERE. SBP ON ARRIVAL 180'S, GAVE IV HYDRALAZINE. CBG LOW 300'S, RECIEVED 10 UNITS SEMGLEE LONG ACTING INSULIN. PT HAS SKIN TEAR ON RIGHT ARM, MOST LIKELY FROM FALL. PT HAS BEEN SHAKING AT TIMES ALMOST LIKE HE IS COLD BUT PT DENIES BEING COLD AND TEMPERATURE WNL. PT SON ALSO REPORTED THAT ALTHOUGH HE DOESN'T BELIEVE HIS FATHER HAS OFFICIALLY BEEN DX WITH DEMENTIA, HE HAS NOTICED A SIGNIFICANT DECLINE IN HIS COGNITION OVER THE LAST YEAR. HE STATES THAT OFTEN TIMES HIS FATHER WILL MIX UP AM AND PM AND WILL TAKE DOUBLE DOSES OF HIS MEDICATIONS, INCLUDING TRAZADONE WHICH WAS RECENTLY ADDED AND SON STATES IS "REALLY THROWS HIM FOR A LOOP". OTHER VSS. PT HAS MRI ORDERED FOR LATER TODAY. WILL CONTINUE TO MONITOR.
--- NOTE | 2020-03-18 11:41 | NUR ---
echocardiogram is complete
--- NOTE | 2020-03-18 17:29 | NUR ---
PT IS ALERT AND ORIENTED THOUGH SHOWS SIGNS OF CONFUSION AT TIMES. HE WILL SUDDENLY START SHAKING AND MAKING "CLUCKING" NOICES ( THINK OF THE [place]UNNY). THESE APPEAR TO STAFF TO BE SELF INDUCED. WHEN PT IS ASKED ABOUT HIS LINE OF WORK HE WILL INSTANLTY STOP SHAKING AND CLUCKING. PTS HTN HAS BEEN UNDER CONTROL THIS SHIFT. PT ON CLEAR LIQUIDS AND TOLERATING WELL. CALL LIGHT WITHIN REACH. WILL CONTINUE TO MONITOR.
[2020-03-19 05:37] LABS: Hematocrit 36.5 % (37.0-53.0); Hemoglobin 12.3 g/dL (13.5-17.5); Mean Corpuscular HGB 32.7 pg (26.0-34.0); Mean Corpuscular HGB Conc 33.7 g/dL (31.5-36.5); Mean Corpuscular Volume 97 fL (80-100); Mean Platelet Volume 11.8 fL (9.1-12.4); Platelet Count 115 K/mm3 (150-400); RDW Coefficient Variation 13.2 % (11.7-14.2); RDW Standard Deviation 45.8 fL (35.1-46.3); Red Blood Cell Count 3.76 M/mm3 (4.30-5.90); White Blood Cell Count 5.74 K/mm3 (4.00-11.30)
--- NOTE | 2020-03-19 05:40 | NUR ---
USER ACCEPTANCE TESTER SUMMARY NO ACUTE CHANGES THIS SHIFT. PT AAOX3 BUT CAN BECOME VERY CONFUSED AND FORGETFUL. PT HAS HAD NUMEROUS LOOSE INCONTINENT BOWEL MOVEMENTS WELL INCONTINENT VOIDS. PT RUBIA AREA RED AND RAW, APPLIED BARRIER CREAM. MEDICATED FOR CHRONIC BACK/SHOULDER PAIN X2 WITH TYLENOL WHICH IS WHAT PT STATES HE USES AT HOME. HAS SLEPT FOR AN HOUR AT A TIME A COUPLE TIMES TONIGHT BUT HAS MOSTLY BEEN AWAKE TALKING TO HIMSELF. PT ALSO NOTED TO ANSWER HIMSELF AT TIMES. VSS, WILL CONTINUE TO MONITOR.
[2020-03-19 06:20] LABS: Albumin, Blood 3.3 g/dL (3.4-5.0); Anion Gap 10 mmol/L (6-16); Blood Urea Nitrogen 25 mg/dL (8-24); Bun/Creatinine Ratio 22.9 (12.0-20.0); CO2, Blood 23 mmol/L (21-32); Calcium, Blood 8.8 mg/dL (8.5-10.1); Chloride, Blood 104 mmol/L (98-108); Creatinine, Blood 1.09 mg/dL (0.60-1.20); Glomerular Filtration Rate >60 (60-); Glucose, Blood 193 mg/dL (70-99); Phosphorus, Blood 2.7 mg/dL (2.5-4.9); Potassium, Blood 3.5 mmol/L (3.5-5.5); Sodium, Blood 137 mmol/L (136-145)
--- NOTE | 2020-03-19 14:24 | NUR ---
PT AGREED TO THIS STUDENT PROVIDING CARE
--- NOTE | 2020-03-19 17:36 | NUR ---
NO ACUTE CHANGES. PT APPEARS LESS CONFUSED THIS SHIFT. WORKED WITH PT AND WALKED WITH ASSISTANCE DOWN THE JOYNER. CALL LIGHT WITHIN REACH.
--- NOTE | 2020-03-20 04:26 | NUR ---
SHIFT SUMMARY ASSUMED CARE OF PT AT 1900. PT IS ALERT BUT ONLY ORIENTED TO SELF AND PLACE. PT WILL UE THE CALL LIGHT IN APPROPIATELY. PT HAS RIPPED OFF HIS CONDOM CATH REPEATIVLY. HEART SOUNDS REGULAR, TELE SHOWS SINUS PVC @ 100. LUNG SOUNDS ARE DIMINISHED. PT WAS INCONTIENT DURING THE NIGHT, PT USED A CONDOM CATH WHEN HE DIDNT PULL IT OUT. PT DID NOT SLEEP AT ALL DURING THE NIGHT. CALL LIGHT IN REACH, BED IN LOWEST POSITON.
[2020-03-20 05:22] LABS: Albumin, Blood 3.4 g/dL (3.4-5.0); Anion Gap 9 mmol/L (6-16); Blood Urea Nitrogen 21 mg/dL (8-24); Bun/Creatinine Ratio 17.9 (12.0-20.0); CHOL/HDL RATIO 3.9; CO2, Blood 25 mmol/L (21-32); Chloride, Blood 100 mmol/L (98-108); Cholesterol 170 mg/dL (50-200); Creatinine, Blood 1.17 mg/dL (0.60-1.20); Glomerular Filtration Rate >60 (60-); Glucose, Blood 269 mg/dL (70-99); HDL Cholesterol 44 mg/dL (>39); LDL/HDL RATIO 1.3; Low Density Lipoprotein Chol 56 mg/dL (0-110); Phosphorus, Blood 2.7 mg/dL (2.5-4.9); Potassium, Blood 3.7 mmol/L (3.5-5.5); Sodium, Blood 134 mmol/L (136-145); Triglycerides 349 mg/dL (30-160); Very Low Density Lipoprot Chol 69 mg/dL (6-32)
--- NOTE | 2020-03-20 17:49 | NUR ---
PATIENT IS ALERT AND ORIENTED AND COOPERATIVE WITH CARE. CONFUSED AT TIMES. A STOOL SAMPLE IS NEEDED, NO BM THIS SHIFT. ATTENDS IN PLACE. INCONTINENT OF BLADDER. 1PA WITH FWW AND GAITBELT. HX OF FALLS AT HOME. BEDALRM IN PLACE. PATIENT IS SITTING UP ON THE SIDE OF THE BED FOR DINNER. PLAN IS TO DISCHARGE TO SNF OUT OF TOWN. WILL CONTINUE TO MONITOR.
--- NOTE | 2020-03-21 04:39 | NUR ---
SHIFT SUMMARY ASSUMED CARE OF PT AT 1900. PT IS A/OX3 WITH TIMES OF CONFUSION. HEART SOUNDS REGULAR, LUNG SOUNDS CLEAR. PT TORE OFF BANDAGE AND GAVE HIMSELF A NEW SKIN TEAR ON HIS R FORARM. PT WAS INCONTIENT T/O THE NIGHT. NO BOWEL MOVEMENTS. PT C/O BURNING WITH URINATION, SCROTUM IS RED. PT ALSO HAS REDNESS AROUND HIS EYES, EYE DROPS GIVEN WITHOUT MUCH RELIEF. PT C/O PAIN ONCE, MEDICATED PER EMAR. PT WAS FINALLY ABLE TO SLEEP TONIGHT. CALL LIGHT IN REACH, BED IN LOWEST POSTION.
[2020-03-21 11:38] LABS: Influenza A, PCR NEGATIVE (NEGATIVE); Influenza B, PCR NEGATIVE (NEGATIVE); Resp Syncytial Virus, PCR NEGATIVE (NEGATIVE); SARS-Cov-2 (COVID-19) PCR, MMC NEGATIVE (NEGATIVE)
[2020-03-21] MEDS ORDERED: ATOR10 PO (17:35)
[2020-03-21] MEDS ORDERED: Aspir 8181 MG PO (17:35)
[2020-03-21] MEDS ORDERED: MELATONIN5 M1 PO (17:36)
[2020-03-21] MEDS ORDERED: CLOP75 PO (17:36)
[2020-03-21] MEDS ORDERED: METO50 PO (17:37)
[2020-03-21] MEDS ORDERED: PROBIOTIC PO (17:38)
[2020-03-21] MEDS ORDERED: ERYT.5TO BOTHEYES (17:39)
--- NOTE | 2020-03-21 17:49 | NUR ---
REPORT CALLED TO ANNABEL KYLE
== END 2020-03-21 18:19 ==
LOC: ER 18:46 → MEDS 18:47 → ER 03-18 00:48 → MEDS 03-18 00:48 → ENPENDDIS 03-21 15:22 → MEDS 03-21 18:19
PROVIDERS: Emergency Medicine; Internal Medicine; ADMIT Internal Medicine
DX: I16.0 Hypertensive urgency (principal); E86.0 Dehydration; N17.9 Acute kidney failure, unspecified; R19.7 Diarrhea, unspecified; H10.9 Unspecified conjunctivitis; N40.0 Benign prostatic hyperplasia without lower urinary tract symptoms; D69.6 Thrombocytopenia, unspecified; I25.10 Atherosclerotic heart disease of native coronary artery without angina pectoris; I25.2 Old myocardial infarction; E11.65 Type 2 diabetes mellitus with hyperglycemia; I12.9 Hypertensive chronic kidney disease with stage 1 through stage 4 chronic kidney disease, or unspecified chronic kidney disease; E11.22 Type 2 diabetes mellitus with diabetic chronic kidney disease; N18.30 Chronic kidney disease, stage 3 unspecified; F32.9 Major depressive disorder, single episode, unspecified; G92 Toxic encephalopathy; Z79.4 Long term (current) use of insulin; Z86.73 Personal history of transient ischemic attack (TIA), and cerebral infarction without residual deficits; Z88.8 Allergy status to other drugs, medicaments and biological substances; Z87.891 Personal history of nicotine dependence; Z95.5 Presence of coronary angioplasty implant and graft; Z95.1 Presence of aortocoronary bypass graft; Z86.19 Personal history of other infectious and parasitic diseases; Z86.711 Personal history of pulmonary embolism; Z85.51 Personal history of malignant neoplasm of bladder; Z20.822 Contact with and (suspected) exposure to COVID-19
CPT/HCPCS: 0241U; 36415; 51701; 70450; 70551; 71045; 74177; 80053; 80061; 80069; 81001; 82550; 82947; 83036; 83880; 84145; 84484; 85025; 85027; 87015; 87045; 87046; 87177; 87205; 87209; 87493; 87899; 93005; 93010; 93306; 96372; 96374; 96375; 96376; 97110; 97112; 97116; 97162; 97166; 97530; 97530-CO; 97535; 97535-CO; 99285-25; A9270; G0378; J0360; J1650; J2060; J2405; J7030; Q9967

== ENCOUNTER 2020-08-08 13:52 | Emergency (ER) | payer OTHER, MEDICARE ==
[~2020-08-08] VITALS: Ht 167.6 cm; Wt 86.2 kg
[~2020-08-08 13:52] MED LIST changes: +A AND D OINTM42.5 G1 TOP; +ATOR10 PO; +BACL10 PO; +CLOP75 PO; +Cymbalta20 MG PO; +DICLOFENAC SOD100 G1 TOP; +ERYT.5TO BOTHEYES; +Hytrin2 MG PO; +MELATONIN5 M1 PO; +PREG75 PO; +PROBIOTIC PO; +SILDENAFIL CIT100 MG PO; +THERAGESIC TOP; +VITAMIN D31000 UNI1 PO
[2020-08-08] MEDS ORDERED: HYDR1TAB94 PO (17:47)
[2020-08-08] MEDS ORDERED: CYCL10 PO (17:47)
== END 2020-08-08 17:59 | disposition home or self-care (01) ==
LOC: ER 13:52
DX: M25.561 Pain in right knee (principal); M25.551 Pain in right hip; G89.29 Other chronic pain; E11.9 Type 2 diabetes mellitus without complications; Z79.899 Other long term (current) drug therapy; Z88.6 Allergy status to analgesic agent; Z86.73 Personal history of transient ischemic attack (TIA), and cerebral infarction without residual deficits; Z87.891 Personal history of nicotine dependence
CPT/HCPCS: 72131; 72170; 73502; 73562-RT; 96374; 96375; 99284-25; J1885; J2270; J2405; J3010

== ENCOUNTER 2020-09-17 11:54 | Inpatient (IN) | payer OTHER, MEDICARE ==
[~2020-09-17] VITALS: Ht 167.6 cm; Wt 84.7 kg
[~2020-09-17 11:54] MED LIST changes: +CYCL10 PO; +HYDR1TAB94 PO
[2020-09-17 12:50] LABS: Source, Urine Clean Catch
[2020-09-17 13:11] LABS: Appearance, Urine Hazy (Clear); Bilirubin, Urine Neg (Neg); Blood, Urine 1+ (Neg); Color, Urine Yellow (P-Yellow); Glucose Qualitative, Urine Neg (Neg); Ketones, Urine Neg (Neg); Leukocyte Esterase, Urine 3+ (Neg); Nitrite, Urine Pos (Neg); Protein, Urine 3+ (Neg); Specific Gravity, Urine 1.015 (1.003-1.022); Urobilinogen, Urine NORM (Normal)
[2020-09-17 13:13] LABS: Albumin, Blood 3.7 g/dL (3.4-5.0); Albumin/Globulin Ratio 0.9 (0.8-1.8); Bilirubin, Total 0.8 mg/dL (0.1-1.0); Calcium, Blood 8.9 mg/dL (8.5-10.1); Creatinine, Blood 2.8 mg/dL (0.60-1.20); Globulin, Blood 3.9 g/dL (2.2-4.0); Potassium, Blood 5.6 mmol/L (3.5-5.5); Total Protein, Blood 7.6 g/dL (6.4-8.2)
[2020-09-17 13:17] LABS: BASOPHILS ABSOLUTE AUTO 0.02 K/mm3 (0.00-0.23); BASOPHILS PERCENT AUTO 0 % (0-2); EOSINOPHILS PERCENT AUTO 3 % (0-6); Hematocrit 33.3 % (37.0-53.0); Hemoglobin 11.5 g/dL (13.5-17.5); IMMATURE GRAN ABSOLUTE AUTO 0.02 K/mm3 (0.00-0.10); IMMATURE GRAN PERCENT AUTO 0 % (0-1); LYMPHOCYTES ABSOLUTE AUTO 1.31 K/mm3 (0.84-5.20); LYMPHOCYTES PERCENT AUTO 20 % (21-46); MONOCYTES ABSOLUTE AUTO 0.88 K/mm3 (0.16-1.47); MONOCYTES PERCENT AUTO 13 % (4-13); Mean Corpuscular HGB 33.6 pg (26.0-34.0); Mean Corpuscular HGB Conc 34.5 g/dL (31.5-36.5); Mean Corpuscular Volume 97 fL (80-100); Mean Platelet Volume 11.4 fL (9.1-12.4); NEUTROPHILS ABSOLUTE AUTO 4.26 K/mm3 (1.96-9.15); NEUTROPHILS PERCENT AUTO 64 % (41-73); Platelet Count 146 K/mm3 (150-400); RDW Coefficient Variation 13.1 % (11.7-14.2); RDW Standard Deviation 46.8 fL (35.1-46.3); Red Blood Cell Count 3.42 M/mm3 (4.30-5.90); White Blood Cell Count 6.69 K/mm3 (4.00-11.30)
[2020-09-17 13:19] LABS: CPK Creatine Kinase 193 U/L (39-308)
[2020-09-17 13:22] LABS: White Blood Cells, Urine TNTC /hpf (0-5)
[2020-09-17 13:23] LABS: Bacteria Many /hpf; Squamous Epithelial Cells Few /hpf (Few)
[2020-09-17] MEDS ORDERED: AMLODIPINE BESY10 MG PO (14:11)
[2020-09-17] MEDS ORDERED: DOCU100 PO (14:12)
[2020-09-17] MEDS ORDERED: TAMSULOSIN HCL0.4 M1 PO (14:12)
[2020-09-17] MEDS ORDERED: METOPROLOL TART25 MG PO (14:12)
[2020-09-17] MEDS ORDERED: GLIP5 PO (14:13)
[2020-09-17] MEDS ORDERED: Glucophage 850850 MG PO (14:13)
[2020-09-17] MEDS ORDERED: LISI20 PO (14:13)
[2020-09-17] MEDS ORDERED: ALOGLIPTIN12.5 M1 PO (14:17)
[2020-09-17] MEDS ORDERED: ACET500 PO (14:17)
[2020-09-17] MEDS ORDERED: INSULANI SC (14:18)
[2020-09-17] MEDS ORDERED: VENL37.5ER PO (14:19)
[2020-09-17] MEDS ORDERED: LIDO700A20 TOP (14:20)
[2020-09-17] MEDS ORDERED: TERA5 PO (14:20)
[2020-09-17 14:44] LABS: U Amphetamine Screen Not Detected; U Barbituate Screen Not Detected; U Benzodiazapine Screen Not Detected; U Buprenorphine Screen Not Detected; U Cannabinoids Screen Not Detected; U Cocaine Screen Not Detected; U Methadone Screen Not Detected; U Methamphetamine Screen Not Detected; U Opiates Screen Not Detected; U Oxycodone Screen DETECTED; U Phencyclidine Screen Not Detected; U Propoxyphene Screen Not Detected
--- NOTE | 2020-09-17 16:00 | NUR ---
PT ARRIVED TO ROOM AT 1515 AND WAS SLID IN TO BED. FELL ASLEEP AFTER BEING SETTLED.
[2020-09-17 18:46] LABS: Bun/Creatinine Ratio 19.2 (12.0-20.0); Calcium, Blood 8.8 mg/dL (8.5-10.1); Creatinine, Blood 2.19 mg/dL (0.60-1.20); Potassium, Blood 4.3 mmol/L (3.5-5.5)
--- NOTE | 2020-09-17 19:14 | NUR ---
SHIFT SUMMARY PT HAS SLEPT THE REMAINDER OF DAY. DID AWAKEN WHEN CHANGED BUT FELL RIGHT BACK TO SLEEP AGAIN. DIDN'T WANT SUPPER. INCONTINENT VOID AFTER SUPPERTIME BUT WAS BLADDER SCANNED AT 405. ONCOMING SHIFT NOTIFIED OF NEED TO BE STRAIGHT CATHED.
--- NOTE | 2020-09-18 04:17 | NUR ---
SHIFT SUMMARY A/OX3, PLEASANT AND COOPERATIVE WITH CARE. LETHARGIC AND ONLY OCCASIONALY RESPONDING TO VERBAL STIUMULI DURING BEGINNING OF SHIFT. HS MEDS WERE HELD D/T ASPIRATION RISK. THIS AM, PT SITTING UP IN BED WATCHING TV CONVERSATING WITH STAFF. USES CALL LIGHT APPROPRIATELY. STRAIGHT CATH X1, PT VOIDING FINE THIS AM. NS RUNNING AT 75. VSS, BED IN LOWEST POSITION WITH CALL LIGHT IN REACH. WILL CONTINUE TO MONITOR AND REPORT TO ONCOMING RN.
[2020-09-18 05:58] LABS: Bun/Creatinine Ratio 21.6 (12.0-20.0); Calcium, Blood 8.6 mg/dL (8.5-10.1); Creatinine, Blood 1.48 mg/dL (0.60-1.20); Potassium, Blood 4.4 mmol/L (3.5-5.5)
[2020-09-18 16:21] LABS: BASOPHILS ABSOLUTE AUTO 0.02 K/mm3 (0.00-0.23); BASOPHILS PERCENT AUTO 0 % (0-2); EOSINOPHILS ABSOLUTE AUTO 0.21 K/mm3 (0.00-0.68); EOSINOPHILS PERCENT AUTO 4 % (0-6); Hematocrit 34.8 % (37.0-53.0); IMMATURE GRAN ABSOLUTE AUTO 0.02 K/mm3 (0.00-0.10); IMMATURE GRAN PERCENT AUTO 0 % (0-1); LYMPHOCYTES ABSOLUTE AUTO 1.32 K/mm3 (0.84-5.20); LYMPHOCYTES PERCENT AUTO 27 % (21-46); MONOCYTES ABSOLUTE AUTO 0.74 K/mm3 (0.16-1.47); MONOCYTES PERCENT AUTO 15 % (4-13); Mean Corpuscular HGB 33.1 pg (26.0-34.0); Mean Corpuscular HGB Conc 34.5 g/dL (31.5-36.5); Mean Corpuscular Volume 96 fL (80-100); Mean Platelet Volume 10.8 fL (9.1-12.4); NEUTROPHILS ABSOLUTE AUTO 2.68 K/mm3 (1.96-9.15); NEUTROPHILS PERCENT AUTO 54 % (41-73); Platelet Count 142 K/mm3 (150-400); RDW Coefficient Variation 12.8 % (11.7-14.2); RDW Standard Deviation 44.9 fL (35.1-46.3); Red Blood Cell Count 3.62 M/mm3 (4.30-5.90); White Blood Cell Count 4.99 K/mm3 (4.00-11.30)
[2020-09-18 17:07] LABS: SARS-Cov-2 (COVID-19) PCR, MMC NEGATIVE (NEGATIVE)
--- NOTE | 2020-09-18 18:05 | NUR ---
SHIFT SUMMARY PT AWAKE AND ALERT MOST OF DAY. PUSHING CALL BUTTON FREQUENTLY WITHOUT REALIZING IT. WAS TEARFUL AND UPSET AND BEGINNING OF SHIFT BEING CONCERNED ABOUT GETTING IN TOUCH WITH HIS DAUGHTER. ONCE IT WAS KNOWN SHE WASN'T AVAILABLE HE WAS OK. INCONTINENT OF URINE SEVERAL TIMES. BLADDER SCANNED FOR GREATER THAN 400ML. DRAINED ONLY 275. TOLERATED PROCEDURE WELL. REPORTED THIS AFTERNOON AN INCREASINGLY RUNNY NOSE, HEADACHE, AND SORE THROAT. MD AWARE AND ORDERED COVID TEST WHICH WAS NEGATIVE.
--- NOTE | 2020-09-19 03:43 | NUR ---
SHIFT SUMMARY PT HAS BEEN AWAKE MOST OF THE NIGHT WATCHING TV. PT MEDICATED FOR ADEN AND BACK PAIN THIS SHIFT. PT BLADDER SCANNED THIS SHIFT WHICH ONLY SHOWED 144 MLS IN BLADDER. PT HAS NOT HAD ISSUES WITH RETENTION THIS SHIFT AND HAS VOIDED SEVERAL TIMES WITHOUT DIFFICULTY. IVF INFUSING ORDERED. NO ACUTE CHANGES OVERNIGHT. BED IN LOWEST POSITION, CALL LIGHT WITHIN REACH.
[2020-09-19 05:48] LABS: BASOPHILS ABSOLUTE AUTO 0.02 K/mm3 (0.00-0.23); BASOPHILS PERCENT AUTO 1 % (0-2); EOSINOPHILS ABSOLUTE AUTO 0.21 K/mm3 (0.00-0.68); EOSINOPHILS PERCENT AUTO 6 % (0-6); Hematocrit 34.9 % (37.0-53.0); Hemoglobin 11.8 g/dL (13.5-17.5); IMMATURE GRAN ABSOLUTE AUTO 0.03 K/mm3 (0.00-0.10); IMMATURE GRAN PERCENT AUTO 1 % (0-1); LYMPHOCYTES ABSOLUTE AUTO 1.15 K/mm3 (0.84-5.20); LYMPHOCYTES PERCENT AUTO 30 % (21-46); MONOCYTES ABSOLUTE AUTO 0.56 K/mm3 (0.16-1.47); MONOCYTES PERCENT AUTO 15 % (4-13); Mean Corpuscular HGB 33.2 pg (26.0-34.0); Mean Corpuscular HGB Conc 33.8 g/dL (31.5-36.5); Mean Corpuscular Volume 98 fL (80-100); Mean Platelet Volume 10.8 fL (9.1-12.4); NEUTROPHILS ABSOLUTE AUTO 1.88 K/mm3 (1.96-9.15); NEUTROPHILS PERCENT AUTO 49 % (41-73); Platelet Count 127 K/mm3 (150-400); RDW Coefficient Variation 12.7 % (11.7-14.2); RDW Standard Deviation 46.4 fL (35.1-46.3); Red Blood Cell Count 3.55 M/mm3 (4.30-5.90); White Blood Cell Count 3.85 K/mm3 (4.00-11.30)
[2020-09-19 06:25] LABS: Bun/Creatinine Ratio 19.8 (12.0-20.0); Calcium, Blood 9.2 mg/dL (8.5-10.1); Creatinine, Blood 1.21 mg/dL (0.60-1.20); Potassium, Blood 4.3 mmol/L (3.5-5.5)
[2020-09-19] MEDS ORDERED: HUMALOG KW100 UNIT/1 SC (09:23)
--- NOTE | 2020-09-19 14:56 | NUR ---
SPOKE WITH DR. TREVIÑO ABOUT PT ELEVATED BP. NO NEW ORDERS AT THIS TIME.
--- NOTE | 2020-09-19 15:52 | NUR ---
PT DISCHARGED FROM THE UNIT. IV REMOVED, DISCHARGE INSTRUCTIONS REVIEWED. MEDICATIONS FAXED TO THE PHARMACY. PT LEFT UNIT VIA WHEEL CHAIR WITH SON TO DRIVE.
== END 2020-09-19 15:51 | disposition home health service (06) | DRG 640 ==
LOC: ER 11:54 → MEDS 14:16 → ERHOLD 14:16 → MEDS 15:14 → ENPENDDIS 09-19 09:01 → MEDS 09-19 15:51
PROVIDERS: Internal Medicine; Nurse Practitioner Acute Care; Student in an Organized Health Care Education/Training Program; ADMIT Internal Medicine
DX: E86.0 Dehydration (principal); G92 Toxic encephalopathy; N17.9 Acute kidney failure, unspecified; I50.22 Chronic systolic (congestive) heart failure; Z20.822 Contact with and (suspected) exposure to COVID-19; N40.0 Benign prostatic hyperplasia without lower urinary tract symptoms; N18.30 Chronic kidney disease, stage 3 unspecified; E87.5 Hyperkalemia; Z86.73 Personal history of transient ischemic attack (TIA), and cerebral infarction without residual deficits; I25.10 Atherosclerotic heart disease of native coronary artery without angina pectoris; M19.90 Unspecified osteoarthritis, unspecified site; Z90.49 Acquired absence of other specified parts of digestive tract; E78.5 Hyperlipidemia, unspecified; Z85.51 Personal history of malignant neoplasm of bladder; Z85.828 Personal history of other malignant neoplasm of skin; B19.20 Unspecified viral hepatitis C without hepatic coma; Z88.6 Allergy status to analgesic agent; Z98.890 Other specified postprocedural states
CPT/HCPCS: 36415; 70450; 71045; 76770; 80048; 80053; 81001; 82550; 82947; 83735; 84100; 85025; 93005; 93010; 97110; 97116; 97162; 97166; 97535; 99285-25; A9270; G0480; J0696; J1644; J7030; U0004

== ENCOUNTER 2021-09-26 11:53 | Emergency (ER) | payer OTHER ==
[~2021-09-26] VITALS: Ht 165.1 cm; Wt 81.7 kg
[~2021-09-26 11:53] MED LIST changes: +ACET500 PO; +ALOGLIPTIN12.5 M1 PO; +AMLODIPINE BESY10 MG PO; +DOCU100 PO; +Glucophage 850850 MG PO; +HUMALOG KW100 UNIT/1 SC; +INSULANI SC; +METOPROLOL TART25 MG PO; +TAMSULOSIN HCL0.4 M1 PO; +TERA5 PO; +VENL37.5ER PO
== END 2021-09-26 12:46 | disposition home or self-care (01) ==
LOC: ER 11:53
DX: Z76.0 Encounter for issue of repeat prescription (principal); E11.9 Type 2 diabetes mellitus without complications; I25.10 Atherosclerotic heart disease of native coronary artery without angina pectoris; Z86.73 Personal history of transient ischemic attack (TIA), and cerebral infarction without residual deficits; Z79.899 Other long term (current) drug therapy; Z79.4 Long term (current) use of insulin; Z88.6 Allergy status to analgesic agent; Z87.891 Personal history of nicotine dependence
CPT/HCPCS: 99281

== ENCOUNTER 2021-09-29 08:53 | Day surgery (SDC) | payer OTHER ==
[~2021-09-29] VITALS: Ht 162.6 cm; Wt 81.5 kg
[2021-09-29] MEDS ORDERED: GLIP2.5ER PO (09:50)
== END 2021-09-29 12:00 | disposition home or self-care (01) ==
LOC: ORSCSDS 08:53
PROVIDERS: Ophthalmology
PROC: 08RK3JZ Replacement of Left Lens with Synthetic Substitute, Percutaneous Approach (ICD-10-PCS; principal; 2021-09-29 10:30)
DX: H25.12 Age-related nuclear cataract, left eye (principal); H52.202 Unspecified astigmatism, left eye; F10.21 Alcohol dependence, in remission; F41.9 Anxiety disorder, unspecified; F32.A Depression, unspecified; I25.10 Atherosclerotic heart disease of native coronary artery without angina pectoris; I50.9 Heart failure, unspecified; E11.9 Type 2 diabetes mellitus without complications; K21.9 Gastro-esophageal reflux disease without esophagitis; I10 Essential (primary) hypertension; Z86.73 Personal history of transient ischemic attack (TIA), and cerebral infarction without residual deficits; Z85.51 Personal history of malignant neoplasm of bladder; Z79.82 Long term (current) use of aspirin; Z79.4 Long term (current) use of insulin; Z79.899 Other long term (current) drug therapy
CPT/HCPCS: 82947; J2001; J2250; J3010; J3301; J7040; V2632

== ENCOUNTER 2022-01-19 13:57 | Day surgery (SDC) | payer OTHER ==
[~2022-01-19] VITALS: Ht 167.6 cm; Wt 81.5 kg
[~2022-01-19 13:57] MED LIST changes: +GLIP2.5ER PO
--- NOTE | 2022-01-19 15:35 | NUR ---
01/19/22 1535 Marleen Ryan [id number] 23.5 LENS IMPLANTED IN RIGHT EYE. # [id number] 002, EXP 11/14/26.
== END 2022-01-19 16:01 | disposition home or self-care (01) ==
LOC: ORSCSDS 13:57
PROVIDERS: Ophthalmology
PROC: 08RJ3JZ Replacement of Right Lens with Synthetic Substitute, Percutaneous Approach (ICD-10-PCS; principal; 2022-01-19 15:30)
DX: H25.11 Age-related nuclear cataract, right eye (principal); I10 Essential (primary) hypertension; I25.10 Atherosclerotic heart disease of native coronary artery without angina pectoris; Z87.891 Personal history of nicotine dependence; K21.9 Gastro-esophageal reflux disease without esophagitis; E11.9 Type 2 diabetes mellitus without complications; Z86.73 Personal history of transient ischemic attack (TIA), and cerebral infarction without residual deficits; Z79.84 Long term (current) use of oral hypoglycemic drugs; Z79.82 Long term (current) use of aspirin; Z79.4 Long term (current) use of insulin
CPT/HCPCS: 82947; J2001; J2250; J3010; J3301; J7040; V2632

== ENCOUNTER → 2022-04-01 | Outpatient (CLI) | payer OTHER, MEDICARE | END | disposition home or self-care (01) | LOC: LAB SHORT 15:45 | DX: N39.0 Urinary tract infection, site not specified (principal) | CPT/HCPCS: 87077; 87086; 87186 ==

== ENCOUNTER 2022-08-24 16:45 | Inpatient (IN) | payer OTHER, BC ==
[~2022-08-24] VITALS: Ht 162.6 cm; Wt 79.4 kg
[~2022-08-24 16:45] MED LIST changes: -METOPROLOL TART25 MG PO
[2022-08-24 18:09] LABS: BASOPHILS ABSOLUTE AUTO 0.04 K/mm3 (0.00-0.23); BASOPHILS PERCENT AUTO 0 % (0-2); EOSINOPHILS ABSOLUTE AUTO 0.02 K/mm3 (0.00-0.68); EOSINOPHILS PERCENT AUTO 0 % (0-6); Hematocrit 39.4 % (37.0-53.0); IMMATURE GRAN ABSOLUTE AUTO 0.09 K/mm3 (0.00-0.10); IMMATURE GRAN PERCENT AUTO 1 % (0-1); LYMPHOCYTES ABSOLUTE AUTO 1.33 K/mm3 (0.84-5.20); LYMPHOCYTES PERCENT AUTO 10 % (21-46); MONOCYTES ABSOLUTE AUTO 1.96 K/mm3 (0.16-1.47); MONOCYTES PERCENT AUTO 14 % (4-13); Mean Corpuscular HGB 36.2 pg (26.0-34.0); Mean Corpuscular HGB Conc 35.5 g/dL (31.5-36.5); Mean Corpuscular Volume 102 fL (80-100); Mean Platelet Volume 10.9 fL (9.1-12.4); NEUTROPHILS ABSOLUTE AUTO 10.19 K/mm3 (1.96-9.15); NEUTROPHILS PERCENT AUTO 75 % (41-73); Platelet Count 269 K/mm3 (150-400); RDW Coefficient Variation 13.7 % (11.7-14.2); RDW Standard Deviation 51.8 fL (35.1-46.3); Red Blood Cell Count 3.87 M/mm3 (4.30-5.90); White Blood Cell Count 13.63 K/mm3 (4.00-11.30)
[2022-08-24 18:44] LABS: Albumin, Blood 3.4 g/dL (3.4-5.0); Albumin/Globulin Ratio 0.9 (0.8-1.8); Bilirubin, Total 1.4 mg/dL (0.1-1.0); Bun/Creatinine Ratio 20.7 (12.0-20.0); Calcium, Blood 9.2 mg/dL (8.5-10.1); Creatinine, Blood 2.03 mg/dL (0.60-1.20); Globulin, Blood 3.7 g/dL (2.2-4.0); Magnesium, Blood 1.6 mg/dL (1.6-2.4); Potassium, Blood 4.3 mmol/L (3.5-5.5); Total Protein, Blood 7.1 g/dL (6.4-8.2)
[2022-08-24 22:43] LABS: Source, Urine Clean Catch
[2022-08-24 22:47] LABS: Appearance, Urine Cloudy (Clear); Bilirubin, Urine Neg (Neg); Blood, Urine 5+ (Neg); Color, Urine Red (P-Yellow); Glucose Qualitative, Urine Neg (Neg); Ketones, Urine 2+ (Neg); Leukocyte Esterase, Urine 3+ (Neg); Nitrite, Urine Neg (Neg); Protein, Urine 4+ (Neg); Urobilinogen, Urine 1+ (Normal)
[2022-08-24 22:56] LABS: Bacteria Many /hpf; Red Blood Cells, Urine 50-100 /hpf (0-2); Squamous Epithelial Cells Few /hpf (Few); White Blood Cells, Urine TNTC /hpf (0-5)
[2022-08-25] VITALS (8 sets, daily range): BP systolic 85–154; BP diastolic 55–98
[2022-08-25 03:08] LABS: BASOPHILS ABSOLUTE AUTO 0.02 K/mm3 (0.00-0.23); BASOPHILS PERCENT AUTO 0 % (0-2); EOSINOPHILS ABSOLUTE AUTO 0.06 K/mm3 (0.00-0.68); EOSINOPHILS PERCENT AUTO 1 % (0-6); Hematocrit 32.9 % (37.0-53.0); Hemoglobin 11.5 g/dL (13.5-17.5); IMMATURE GRAN ABSOLUTE AUTO 0.05 K/mm3 (0.00-0.10); IMMATURE GRAN PERCENT AUTO 1 % (0-1); LYMPHOCYTES ABSOLUTE AUTO 1.36 K/mm3 (0.84-5.20); LYMPHOCYTES PERCENT AUTO 16 % (21-46); MONOCYTES ABSOLUTE AUTO 1.18 K/mm3 (0.16-1.47); MONOCYTES PERCENT AUTO 14 % (4-13); Mean Corpuscular HGB 35.9 pg (26.0-34.0); Mean Corpuscular Volume 103 fL (80-100); Mean Platelet Volume 10.7 fL (9.1-12.4); NEUTROPHILS ABSOLUTE AUTO 5.89 K/mm3 (1.96-9.15); NEUTROPHILS PERCENT AUTO 69 % (41-73); Platelet Count 192 K/mm3 (150-400); RDW Coefficient Variation 13.4 % (11.7-14.2); RDW Standard Deviation 51.2 fL (35.1-46.3); White Blood Cell Count 8.56 K/mm3 (4.00-11.30)
[2022-08-25 03:29] LABS: Albumin, Blood 2.5 g/dL (3.4-5.0); Albumin/Globulin Ratio 0.8 (0.8-1.8); Bilirubin, Total 0.7 mg/dL (0.1-1.0); Bun/Creatinine Ratio 23.8 (12.0-20.0); Calcium, Blood 7.9 mg/dL (8.5-10.1); Creatinine, Blood 1.81 mg/dL (0.60-1.20); Globulin, Blood 3.1 g/dL (2.2-4.0); Potassium, Blood 3.9 mmol/L (3.5-5.5); Total Protein, Blood 5.6 g/dL (6.4-8.2)
[2022-08-25] MEDS ORDERED: FOLI1 PO (05:03)
[2022-08-25] MEDS ORDERED: CETI5 PO (05:06)
[2022-08-25] MEDS ORDERED: AMLO5 PO (05:07)
[2022-08-25] MEDS ORDERED: ALOGLIPTIN12.5 M1 PO (05:07)
[2022-08-25] MEDS ORDERED: OXYC5 PO (05:09)
[2022-08-25] MEDS ORDERED: DICLOFENAC SOD100 G1 TOP (05:09)
[2022-08-25] MEDS ORDERED: DESONIDE TOP (05:27)
[2022-08-25] MEDS ORDERED: Ketoconazole15 GM TOP (05:28)
[2022-08-25] MEDS ORDERED: INSULANI SC (05:31)
--- NOTE | 2022-08-25 05:46 | NUR ---
SHIFT SUMMARY 86 YR M ADMITTED ON 08/25/22 FOR SEPSIS/UTI. FULL CODE. AT APPROX 0215 PT C/O SHARP CHEST PAIN ATY A PAIN LEVEL OF 9. HOSPITALIST WAS NOTIFIED AND NITRO WAS GIVEN. PAIN SUBSIDED AFTER 1 NITRO BUT EKG WAS DONE AND SHOWED AFIB W/ RVR WELL A HIGH HEART RATE SO A RAPID RESPONSE WAS CALLED. PT WAS STABILIZED AND PUT ON TELE. AT APPROX 0450 TELE MONITOR CALLED TO REPORT THAT PT WAS HAVING ST ELEVATIONS. WHEN PT WAS CHECKED ON HE C/O SHARP CHEST PAIN AND WAS GIVEN NITRO AGAIN. THIS TIME HE WAS GIVEN ALL 3 DOSES. DOC WAS CALLED AND PT WAS GIVEN 5MG LOPRESSOR IV AND 50 MCG FENTANYL. HIS HR AND BP RETURNED TO NORMAL AND THE PAIN SUBSIDED. HOSPITALIST CAME TO PT'S ROOM AND PUT EYES ON HIM AND ANOTHER EKG WAS DONE. PT IS STABLE AT THIS TIME.
--- NOTE | 2022-08-25 17:33 | NUR ---
Pt resting in bed upon arrival. Reviewed plan of care and listened as Pt reports not being . He reports his daughter lives at home with him and he uses a cane/walker for ambulation. Pt's daughter is at bedside. Pt reports having 1 daughter, 1 son who lives in [place], and 3 sons who have . Offered condolences and continued therapeutic listening. Pt reports being a in the [employer]. This RN thanked him for his service. Pt reports struggling with the transition to community care as the [facility] no longer provides care for him. 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 He reports no one has contacted him to set up an appointment for biopsy as of yet. Encouraged Pt and daughter to persist with making an appointment. Engaged in therapeutic discussion regarding code status wishes. Educated on life sustaining treatments including risks and implications to CPR/Intubation. Answered questions and continued therapeutic listening. Pt reports his wishes are Limited Code. He is ok with defibrillation and medications. He reports not wanting CPR or Intubation. Pt and family express appreciation and report no other concerns at this time. Spoke with Dr Vargas and reported Pt's code status wishes. Placed Limited Code of defibrillation and medication only per V/O from Dr Vargas. Palliative Care will remain available
--- NOTE | 2022-08-25 19:18 | NUR ---
MAKES NEEDS KNOWN, CALL LIGHT WITH IN REACH, PATIENT REPORTS RELIEF FROM AM MEDICATIONS AND PRN MEDICATIONS, DAUGHTER VISITED TODAY, CODE STATUS CHANGED NO CPR NO INTUBATION BUT DOES WANT TO BE SHOCKED. HTN IMPROVED, RELIEF FROM ABD AND CHEST PAIN. 1899 TROPONIN LEVEL TO BE DRAWN, SATS 100% ON 2L O2, ALERTNESS HAS IMPROVED THROUGH THE DAY, REPORT TO PM RN, CALL LIGHT WITH IN REACH
--- NOTE | 2022-08-26 05:44 | NUR ---
SHIFT SUMMARY PT REQUESTED SLEEPING MEDICATION AT CHANGE OF SHIFT, NOTIFIED LACIE BELCHER AND OBTAINED ORDER FOR PRN MELATONIN. AT FIRST VS CHECK PT WAS IN AFIB WITH A RATE OF >125 AND WAS C/O CHEST PAIN. PRN METOPROLOL GIVEN WITH IMPROVEMENT OF HR TO 80'S-90'S AND PT STATED IMPROVEMENT IN CHEST PAIN. PRN PAIN MEDICATION GIVEN FOR GENERALIZED PAIN WELL PRN MELATONIN. HOWEVER AROUND 30 MINS LATER PT STATED HIS CHEST PAIN WAS BACK (HR STILL BETWEEN 80'S-90'S) AND PRN NITRO GIVEN X1. EKG OBTAINED WITH NO CHANGES FROM PREVIOUS EKGS. GI COCKTAIL GIVEN PER REQUEST WELL. PT STATED AFTER HIS CHEST PAIN WAS A 2/10, BUT HE FELT HE HAD TO KEEP REPORTING HE WAS HAVING CHEST PAIN BECAUSE HE HAD NEVER HAD A PAIN IN HIS LEFT SHOULDER. PT SLEPT THE REMAINDER OF THE NIGHT WITH NO COMPLAINTS. Q1H FIRE SAFETY CHECKS COMPLETED WITH NO SOURCES OF IGNITION FOUND.
[2022-08-26 05:55] VITALS: BP 144/72
[2022-08-26 06:33] LABS: BASOPHILS ABSOLUTE AUTO 0.03 K/mm3 (0.00-0.23); BASOPHILS PERCENT AUTO 0 % (0-2); EOSINOPHILS ABSOLUTE AUTO 0.12 K/mm3 (0.00-0.68); EOSINOPHILS PERCENT AUTO 2 % (0-6); Hematocrit 30.7 % (37.0-53.0); Hemoglobin 10.9 g/dL (13.5-17.5); IMMATURE GRAN ABSOLUTE AUTO 0.05 K/mm3 (0.00-0.10); IMMATURE GRAN PERCENT AUTO 1 % (0-1); LYMPHOCYTES ABSOLUTE AUTO 1.03 K/mm3 (0.84-5.20); LYMPHOCYTES PERCENT AUTO 14 % (21-46); MONOCYTES ABSOLUTE AUTO 1.05 K/mm3 (0.16-1.47); MONOCYTES PERCENT AUTO 14 % (4-13); Mean Corpuscular HGB 36.8 pg (26.0-34.0); Mean Corpuscular HGB Conc 35.5 g/dL (31.5-36.5); Mean Corpuscular Volume 104 fL (80-100); Mean Platelet Volume 10.3 fL (9.1-12.4); NEUTROPHILS PERCENT AUTO 70 % (41-73); Platelet Count 195 K/mm3 (150-400); RDW Coefficient Variation 13.2 % (11.7-14.2); Red Blood Cell Count 2.96 M/mm3 (4.30-5.90); White Blood Cell Count 7.58 K/mm3 (4.00-11.30)
[2022-08-26 06:54] LABS: Bun/Creatinine Ratio 23.4 (12.0-20.0); Calcium, Blood 8.2 mg/dL (8.5-10.1); Creatinine, Blood 1.07 mg/dL (0.60-1.20); Potassium, Blood 3.8 mmol/L (3.5-5.5)
--- NOTE | 2022-08-26 08:00 | NUR ---
pt laying in bed awake eating breakfast, a/ox3, pleasant and cooperative with care, follows commands well, denies pain at this time, lungs are clear t/o, a bit dim in bases, currently on 3 liters 02 via n/c, no cough noted, hrirr, distant, controled rate at this time, tele in place running afib per monitor see strip, no edema ntoed, ppp+1, cap refill <3sec, vs stable, afebrile, iv site is clear and patent, btx4, abd flat soft nontender, voids without diff, skin c/w/d, maew, aruna, call light in reach.
[2022-08-26 08:03] VITALS: BP 171/80
--- NOTE | 2022-08-26 19:26 | NUR ---
pt ambulated to the bathroom using a walker, daughter in to visit, has pain in shoulders, but never chest pain, and a bit of nausea, no further changes this shift, call light in reach.
[2022-08-26 19:42] VITALS: BP 148/104
[2022-08-27 04:56] VITALS: BP 150/58
[2022-08-27 05:17] LABS: Hematocrit 30.6 % (37.0-53.0); Hemoglobin 10.9 g/dL (13.5-17.5); Mean Corpuscular HGB 36.1 pg (26.0-34.0); Mean Corpuscular HGB Conc 35.6 g/dL (31.5-36.5); Mean Corpuscular Volume 101 fL (80-100); Mean Platelet Volume 10.3 fL (9.1-12.4); Platelet Count 232 K/mm3 (150-400); RDW Coefficient Variation 12.9 % (11.7-14.2); RDW Standard Deviation 48.4 fL (35.1-46.3); Red Blood Cell Count 3.02 M/mm3 (4.30-5.90); White Blood Cell Count 7.94 K/mm3 (4.00-11.30)
[2022-08-27 05:55] LABS: Bun/Creatinine Ratio 17.8 (12.0-20.0); Calcium, Blood 8.5 mg/dL (8.5-10.1); Creatinine, Blood 0.9 mg/dL (0.60-1.20); Potassium, Blood 3.7 mmol/L (3.5-5.5)
--- NOTE | 2022-08-27 06:25 | NUR ---
SHIFT SUMMARY PAIN MEDICATION GIVEN FOR BACK PAIN AT BEGINNING OF SHIFT, PT REQUIRED PRN FENTANYL FOR SEVERE BACK PAIN ONCE. PT REPORTED 2 BMS THIS SHIFT, NO C/O CHEST PAIN, NO RAPID AFIB ON TELE. Q1H FIRE SAFETY CHECKS COMPLETED, NO SOURCES OF IGNITION FOUND
[2022-08-27 07:25] VITALS: BP 132/64
--- NOTE | 2022-08-27 08:00 | NUR ---
pt laying in bed watching tv, a/ox4, pleasant and cooperative with care, follows commands well, denies any chest pain, states his back hurts like it always does, will medicate for pain, lungs are clear t/o, resp even and unlabored, no cough noted, hrr, no edema noted, ppp+1, cap refill <3 sec, vs stable, afebrile, iv site was pulled by pt durring the night, btx4, abd flat soft nontender, voids without diff, skin c/w/d, maew, aruna, call light in reach.
--- NOTE | 2022-08-27 13:25 | NUR ---
Spiritual Care Visit. Pt. is sitting up in bed and welcomes my visit. Pt. is pleasant. Facilitated a life review and Pt. verbalized the many health issues that has recentlt beset him. Listen with empathy and a calming presence. Pt. displays evidence of trust and a spirit of encouragment. Consider matters of erika and belief and establish rapport. Prayed with Pt. Pt. verbalized gratitude for the spiritual care visit.
[2022-08-27] MEDS ORDERED: FAMO20 PO (14:18)
[2022-08-27] MEDS ORDERED: VISBIOME 112.51 EACH PO (14:19)
[2022-08-27] MEDS ORDERED: OXYB5 PO (14:19)
[2022-08-27] MEDS ORDERED: Prinivil10 MG PO (14:19)
[2022-08-27] MEDS ORDERED: LEVOFLOXACIN750 MG PO (14:19)
[2022-08-27] MEDS ORDERED: ASPI81CH PO (14:20)
--- NOTE | 2022-08-27 16:20 | NUR ---
pt has been discharged to home, went over discharge instructions with him, he verbalized understanding, new medications were faxed to [facility] to get enough until tuesday. assisted him to get dressed, daughter here to pick him up, left via wheelchair with recycling assistant and daughter in attendence, pt has all belongings.
== END 2022-08-27 16:02 | disposition home health service (06) | DRG 871 ==
LOC: ER 16:45 → MEDS 16:46
PROVIDERS: Family Medicine; Physician Assistant; Student in an Organized Health Care Education/Training Program; ADMIT Internal Medicine
PROC: 3E03329 Introduction of Other Anti-infective into Peripheral Vein, Percutaneous Approach (ICD-10-PCS; principal; 2022-08-24)
PROC: 0T9B70Z Drainage of Bladder with Drainage Device, Via Natural or Artificial Opening (ICD-10-PCS; 2022-08-24)
DX: A41.81 Sepsis due to Enterococcus (principal); I50.43 Acute on chronic combined systolic (congestive) and diastolic (congestive) heart failure; N39.0 Urinary tract infection, site not specified; N17.9 Acute kidney failure, unspecified; E87.20 Acidosis, unspecified; I48.20 Chronic atrial fibrillation, unspecified; E11.22 Type 2 diabetes mellitus with diabetic chronic kidney disease; N18.9 Chronic kidney disease, unspecified; F10.20 Alcohol dependence, uncomplicated; B95.2 Enterococcus as the cause of diseases classified elsewhere; I25.10 Atherosclerotic heart disease of native coronary artery without angina pectoris; G89.29 Other chronic pain; D63.1 Anemia in chronic kidney disease; E88.09 Other disorders of plasma-protein metabolism, not elsewhere classified; E77.8 Other disorders of glycoprotein metabolism; M19.90 Unspecified osteoarthritis, unspecified site; N40.0 Benign prostatic hyperplasia without lower urinary tract symptoms; B19.20 Unspecified viral hepatitis C without hepatic coma; M54.9 Dorsalgia, unspecified; R79.89 Other specified abnormal findings of blood chemistry; Z95.5 Presence of coronary angioplasty implant and graft; Z96.1 Presence of intraocular lens; Z79.4 Long term (current) use of insulin; Z79.899 Other long term (current) drug therapy; Z86.73 Personal history of transient ischemic attack (TIA), and cerebral infarction without residual deficits; Z85.51 Personal history of malignant neoplasm of bladder; Z85.828 Personal history of other malignant neoplasm of skin; Z98.890 Other specified postprocedural states; Z90.49 Acquired absence of other specified parts of digestive tract; Z87.891 Personal history of nicotine dependence; Z79.2 Long term (current) use of antibiotics; Z88.6 Allergy status to analgesic agent
CPT/HCPCS: 36415; 51702; 71045; 74160; 76770; 80048; 80053; 81001; 82947; 83605; 83690; 83735; 84484; 85025; 85027; 87040; 87077; 87086; 87186; 93005; 93010; 93306; 96365; 96367; 96372; 96375; 96376; 97110; 97161; 97530; 99285-25; A9270; G0378; J0696; J1650; J1815; J1956; J3010; J3475; J7030; J7040; Q9967

== ENCOUNTER → 2022-09-07 | Outpatient (CLI) | payer OTHER ==
[~2022-09-07] MED LIST changes: +ASPI81CH PO; +CETI5 PO; +DESONIDE TOP; +FAMO20 PO; +Ketoconazole15 GM TOP; +LEVOFLOXACIN750 MG PO; +METO50ER PO; +OXYB5 PO; +Prinivil10 MG PO; +SULFAMETHOXAZO1 EAC1 PO; +VISBIOME 112.51 EACH PO
== END | disposition home or self-care (01) ==
LOC: LAB 17:50 → LAB SHORT 17:50
DX: R30.0 Dysuria (principal)
CPT/HCPCS: 87086

== ENCOUNTER 2022-09-10 12:47 | Inpatient (IN) | payer OTHER ==
[~2022-09-10] VITALS: Ht 162.6 cm; Wt 77.3 kg
[~2022-09-10 12:47] MED LIST changes: -METO50ER PO; -SULFAMETHOXAZO1 EAC1 PO
[2022-09-10 15:10] LABS: BASOPHILS ABSOLUTE AUTO 0.02 K/mm3 (0.00-0.23); BASOPHILS PERCENT AUTO 0 % (0-2); EOSINOPHILS ABSOLUTE AUTO 0.03 K/mm3 (0.00-0.68); EOSINOPHILS PERCENT AUTO 0 % (0-6); Hematocrit 21.7 % (37.0-53.0); Hemoglobin 7.5 g/dL (13.5-17.5); IMMATURE GRAN ABSOLUTE AUTO 0.08 K/mm3 (0.00-0.10); IMMATURE GRAN PERCENT AUTO 1 % (0-1); LYMPHOCYTES ABSOLUTE AUTO 1.15 K/mm3 (0.84-5.20); LYMPHOCYTES PERCENT AUTO 11 % (21-46); MONOCYTES ABSOLUTE AUTO 0.58 K/mm3 (0.16-1.47); MONOCYTES PERCENT AUTO 6 % (4-13); Mean Corpuscular HGB 36.2 pg (26.0-34.0); Mean Corpuscular HGB Conc 34.6 g/dL (31.5-36.5); Mean Corpuscular Volume 105 fL (80-100); Mean Platelet Volume 10.4 fL (9.1-12.4); NEUTROPHILS ABSOLUTE AUTO 8.45 K/mm3 (1.96-9.15); NEUTROPHILS PERCENT AUTO 82 % (41-73); Platelet Count 220 K/mm3 (150-400); RDW Coefficient Variation 13.3 % (11.7-14.2); RDW Standard Deviation 50.4 fL (35.1-46.3); Red Blood Cell Count 2.07 M/mm3 (4.30-5.90); White Blood Cell Count 10.31 K/mm3 (4.00-11.30)
[2022-09-10 15:33] LABS: Albumin, Blood 3.1 g/dL (3.4-5.0); Albumin/Globulin Ratio 1.1 (0.8-1.8); Bilirubin, Total 0.9 mg/dL (0.1-1.0); Bun/Creatinine Ratio 19.7 (12.0-20.0); Creatinine, Blood 2.03 mg/dL (0.60-1.20); Globulin, Blood 2.9 g/dL (2.2-4.0); Potassium, Blood 4.1 mmol/L (3.5-5.5)
[2022-09-10 17:34] LABS: Source, Urine Clean Catch
[2022-09-10 17:52] LABS: Appearance, Urine Turbid (Clear); Bilirubin, Urine Neg (Neg); Blood, Urine 4+ (Neg); Color, Urine Yellow (P-Yellow); Glucose Qualitative, Urine Neg (Neg); Ketones, Urine 1+ (Neg); Leukocyte Esterase, Urine 3+ (Neg); Nitrite, Urine Neg (Neg); Protein, Urine 3+ (Neg); Urobilinogen, Urine NORM (Normal)
[2022-09-10 18:23] LABS: White Blood Cells, Urine TNTC /hpf (0-5)
[2022-09-10 18:24] LABS: Bacteria Many /hpf; Squamous Epithelial Cells Rare /hpf (Few)
[2022-09-10 19:17] LABS: International Normalized Ratio 1.04; Prothrombin Time Results 10.9 Sec (9.7-11.5)
[2022-09-10 22:17] VITALS: BP 103/64
[2022-09-10 23:11] VITALS: BP 125/72
[2022-09-10] MEDS ORDERED: SULFAMETHOXAZO1 EAC1 PO (23:12)
[2022-09-10] MEDS ORDERED: METO50ER PO (23:14)
[2022-09-10] MEDS ORDERED: AMLO5 PO (23:15)
[2022-09-10 23:22] VITALS: BP 117/69
--- NOTE | 2022-09-10 23:36 | NUR ---
RN NOTE PT ARRIVED FROM ER TO MEDICAL UNIT AT 2208 C/O 9/10 MID STERNAL CHEST PAIN. CHEST PAIN INCREASES ON DEEP BREATH AND ON TOUCH. DR FLORES NOTIFIED AND FENTANYL 25MCG IV Q2HRS PRN SEVERE PAIN ORDER READ BACK AND ENTERED INTO [employer]. ALSO ORDER OBTAINED TO STRAIGHT CATH PRN PT STRAIGHT CATHS SEVERAL TIMES A DAY AT HOME (HX BLADDER CA). 3RD UNIT PLASMA RECEIVED FROM BLOOD BANK AND HUNG AT 1105HRS. PT WITH SOME SOB, RESP RATE 24, HR 120S, O2 SAT 88-91% ON ROOM AIR. CRITICAL TROP RESULT RECEIVED FROM LAB. DR FLORES CALLED WITH THIS INFORMATION. ORDER FOR PORTABLE CXR, O2 NC TO KEEP SATS >90% AND BNP LAB OBTAINED. READ BACK DONE AND ENTERED INTO [employer].
[2022-09-11] VITALS (14 sets, daily range): BP systolic 105–155; BP diastolic 58–85
[2022-09-11 00:37] LABS: BASOPHILS ABSOLUTE AUTO 0.02 K/mm3 (0.00-0.23); BASOPHILS PERCENT AUTO 0 % (0-2); EOSINOPHILS ABSOLUTE AUTO 0.04 K/mm3 (0.00-0.68); EOSINOPHILS PERCENT AUTO 0 % (0-6); Hematocrit 21.1 % (37.0-53.0); Hemoglobin 7.1 g/dL (13.5-17.5); IMMATURE GRAN ABSOLUTE AUTO 0.06 K/mm3 (0.00-0.10); IMMATURE GRAN PERCENT AUTO 1 % (0-1); LYMPHOCYTES ABSOLUTE AUTO 1.34 K/mm3 (0.84-5.20); LYMPHOCYTES PERCENT AUTO 12 % (21-46); MONOCYTES ABSOLUTE AUTO 0.89 K/mm3 (0.16-1.47); MONOCYTES PERCENT AUTO 8 % (4-13); Mean Corpuscular HGB 35.5 pg (26.0-34.0); Mean Corpuscular HGB Conc 33.6 g/dL (31.5-36.5); Mean Corpuscular Volume 106 fL (80-100); Mean Platelet Volume 10.5 fL (9.1-12.4); NEUTROPHILS ABSOLUTE AUTO 8.47 K/mm3 (1.96-9.15); NEUTROPHILS PERCENT AUTO 78 % (41-73); Platelet Count 224 K/mm3 (150-400); RDW Coefficient Variation 13.4 % (11.7-14.2); RDW Standard Deviation 50.8 fL (35.1-46.3); White Blood Cell Count 10.82 K/mm3 (4.00-11.30)
[2022-09-11 00:51] LABS: International Normalized Ratio 1.05
[2022-09-11 00:57] LABS: Albumin, Blood 3.1 g/dL (3.4-5.0); Bilirubin, Total 0.6 mg/dL (0.1-1.0); Bun/Creatinine Ratio 20.4 (12.0-20.0); Creatinine, Blood 2.11 mg/dL (0.60-1.20); Globulin, Blood 3.2 g/dL (2.2-4.0); Magnesium, Blood 1.5 mg/dL (1.6-2.4); Potassium, Blood 4.1 mmol/L (3.5-5.5); Total Protein, Blood 6.3 g/dL (6.4-8.2)
--- NOTE | 2022-09-11 01:49 | NUR ---
RN NOTE DR SHERIDAN CAME TO BEDSIDE AT 0100HRS. PT RESPIRATION RATE 28/MINUTE. BREATH SOUNDS DIMINISHED. REMAINING PLASMA TRANSFUSION WAS CANCELLED BY DR LANTIGUA. 40MG IV LASIX ORDERED AND GIVEN. AWAITING CXR RESULTS. TO HOLD OFF ON PRBC UNTIL RESULTED. 0145. RADIOLOGY CALLED AND THEY SAID THAT CXR WILL NOT BE READ UNTIL MORNING. DR LANTIGUA CALLED AND NOTIFIED. HE GAVE TELEPHONE ORDER FOR REPEAT PORTABLE CXR AT 0800HRS, TO PLACE CHRISTINE AND LEAVE IT IT FOR NOW DUE TO DIURESIS AND TO GO AHEAD AND GIVE THE PRBC STARTING AROUND 0300HRS.
[2022-09-11 02:21] LABS: Source, Urine Foley catheter
[2022-09-11 02:35] LABS: Bilirubin, Urine Neg (Neg); Blood, Urine 4+ (Neg); Glucose Qualitative, Urine Neg (Neg); Ketones, Urine Neg (Neg); Leukocyte Esterase, Urine 3+ (Neg); Nitrite, Urine Neg (Neg); Protein, Urine 3+ (Neg); Urobilinogen, Urine NORM (Normal)
[2022-09-11 02:42] LABS: Appearance, Urine Hazy (Clear); Bacteria Mod /hpf; Color, Urine Yellow (P-Yellow); Squamous Epithelial Cells Few /hpf (Few); White Blood Cells, Urine TNTC /hpf (0-5)
--- NOTE | 2022-09-11 05:05 | NUR ---
SHIFT SUMMARY SEE PRIOR NOTES. MR VIEYRA WAS ADMITTED 2208HRS 09/10, C/O 10/24 CENTRAL CHEST PAIN ON ARRIVAL. THIS CHEST PAIN HAS SETTLED THIS MORNING AFTER 2ND IV FENTANY DOSE AND HE SAID IT IS MUCH MORE MANAGEABLE. CHEST PAIN INCREASED ON DEEP BREATH AND ON PALPATION. NO RADIATION. RESP RATE WAS UP TO 28RPM OVERNIGHT WITH SOB EVIDENT. OXYGEN 2L NC KEEPING SATS GREATER THAN 90%. LASIX 40MG IV GIVEN AFTER FFP INFUSION AND BEFORE PRBC INFUSION. CHRISTINE PLACED AT THAT TIME TO MONITOR OUTPUT PATIENT IS NOT ABLE TO VOID, STRAIGHT CATHS FREQUENTLY BUT IS OFTEN UNABLE TO TELL WHEN HE NEEDS TO STRAIGHT CATH. GOOD UOP AND RESPIRATIONS LOOK EASIER AFTER LASIX DOSE. PT EDUCATED RE IGNITION RISK AND RISK FOR INJURY WHILE OXYGEN IS IN USE. HE IS A NON SMOKER, VERBALISED UNDERSTANDING, DENIED HAVING IGNITION SOURCES HERE. REASSESSMENT ON Q 1 HOURLY ROUNDS. CHRONIC LOWER BACK PAIN, PT SAID HE HAD UNSUCCESSFUL BACK SURGERY BACK IN JUNE. HE LIVES WITH HIS DAUGHTER, HAS HELP WITH COOKING, LAUNDRY, CLEANING, BUT DOES MOST SELF CARE INDEPENDENTLY. BED LOW, CALL LIGHT IN REACH.
--- NOTE | 2022-09-11 06:28 | NUR ---
VAMSI FROM [place] AT 0600HRS THAT PT HAD 7 BEATS VTACH. I WAS IN THE ROOM WITH MR VIEYRA, HE SAID CHEST PAIN HAS ALMOST GONE AND THAT HIS BREATHING IS FEELING EASIER. VS DONE. VOICE MESSAGE LEFT WITH DR BUTT
--- NOTE | 2022-09-11 06:39 | NUR ---
CALL BACK FROM DR ARCHER. NO NEW ORDERS./
[2022-09-11 09:15] LABS: Percent Saturation 11.8 % (20.0-50.0)
--- NOTE | 2022-09-11 11:00 | NUR ---
Into sds via [place]. Pt is alert and oriented, but forgetful/poor historian. History, Chart, Medications and Allergies reviewed before start of procedure.Patient confirms NPO status and agrees with scheduled surgery.ECG shows a-fib with rate 80-100's. Lungs diminished in the bases R>L. Respirations are shallow and slightly labored, but pt denies sob and sats>90% on [address] Mota made aware. Stat H&H also requested.
--- NOTE | 2022-09-11 11:13 | NUR ---
PIV TO RIGHT AC LEAKING-DISCONTINUED WITH CANULA INTACT. LEFT FOREARM PIV #20 FLUSHES WELL AND DRESSING C/D/I.
[2022-09-11 11:34] LABS: Hematocrit 22.7 % (37.0-53.0); Hemoglobin 7.7 g/dL (13.5-17.5)
--- NOTE | 2022-09-11 11:58 | NUR ---
09/11/22 [address] LUO; SEE ANESTHESIA RECORDS.
--- NOTE | 2022-09-11 18:46 | NUR ---
SHIFT SUMMARY: MIRIAN IS A&OX4. VSS, NO ACUTE EVENTS THIS SHIFT. HE DID HAVE AN EGD THIS SHIFT AND WAS STARTED ON PROTONIX. HE HAS TOLERATED PO INTAKE WELL, CHRISTINE IN PLACE DRAINING CLEAR, YELLOW URINE, ATTENDS IN PLACE FOR BOWEL INCONTINENCE. BOWEL MOVEMENTS HAVE BEEN DARK WITH FINE, COFFEE GROUND APPEARANCE. IV TO LEFT FOREARM PATENT. O2 VIA NASAL CANNULA TO MAINTAIN SATS >90%, HE DOES NOT USE O2 AT HOME. HE IS LYING IN BED WITH THE CALL LIGHT IN REACH. WCTM UNTIL REPORT IS GIVEN TO SOUND ENGINEERING TECHNICIAN.
[2022-09-12 05:39] LABS: BASOPHILS ABSOLUTE AUTO 0.02 K/mm3 (0.00-0.23); BASOPHILS PERCENT AUTO 0 % (0-2); EOSINOPHILS ABSOLUTE AUTO 0.32 K/mm3 (0.00-0.68); EOSINOPHILS PERCENT AUTO 6 % (0-6); Hematocrit 23.7 % (37.0-53.0); Hemoglobin 7.9 g/dL (13.5-17.5); IMMATURE GRAN ABSOLUTE AUTO 0.02 K/mm3 (0.00-0.10); IMMATURE GRAN PERCENT AUTO 0 % (0-1); LYMPHOCYTES ABSOLUTE AUTO 1.56 K/mm3 (0.84-5.20); LYMPHOCYTES PERCENT AUTO 29 % (21-46); MONOCYTES ABSOLUTE AUTO 0.59 K/mm3 (0.16-1.47); MONOCYTES PERCENT AUTO 11 % (4-13); Mean Corpuscular HGB 34.2 pg (26.0-34.0); Mean Corpuscular HGB Conc 33.3 g/dL (31.5-36.5); Mean Corpuscular Volume 103 fL (80-100); Mean Platelet Volume 10.8 fL (9.1-12.4); NEUTROPHILS ABSOLUTE AUTO 2.92 K/mm3 (1.96-9.15); NEUTROPHILS PERCENT AUTO 54 % (41-73); Platelet Count 183 K/mm3 (150-400); RDW Coefficient Variation 17.8 % (11.7-14.2); RDW Standard Deviation 66.1 fL (35.1-46.3); Red Blood Cell Count 2.31 M/mm3 (4.30-5.90); White Blood Cell Count 5.43 K/mm3 (4.00-11.30)
--- NOTE | 2022-09-12 05:47 | NUR ---
SHIFT SUMMARY PRN PAIN MEDICATION GIVEN THIS SHIFT, OXYCODONE AND TYLENOL X1, WHICH WAS MINIMALLY EFFECTIVE, PT RECEIVED FENTANYL X2 WHICH HE REPORTED RELIEF OF HIS PAIN BOTH DOSES. NO OTHER EVENTS OVERNIGHT. Q1H FIRE SAFETY CHECKS COMPLETED.
[2022-09-12 06:07] LABS: Bun/Creatinine Ratio 17.3 (12.0-20.0); Calcium, Blood 8.2 mg/dL (8.5-10.1); Creatinine, Blood 1.91 mg/dL (0.60-1.20); Magnesium, Blood 1.7 mg/dL (1.6-2.4); Potassium, Blood 3.5 mmol/L (3.5-5.5)
--- NOTE | 2022-09-12 07:10 | NUR ---
RECEIVED REPORT AND ASSUMED CARE OF PT. HE IS LYING QUIETLY IN BED WITH HIS EYES CLOSED. CALL LIGHT IN REACH. O2 VIA NC AND TELE IN PLACE.
[2022-09-12 07:56] VITALS: BP 118/50
--- NOTE | 2022-09-12 10:38 | NUR ---
PT REQUESTED THIS NURSE TO CALL HIS DAUGHTER TO NOTIFY HER OF HIS DISCHARGE. NO ANSWER, NO ABILITY TO LEAVE A MESSAGE.
[2022-09-12] MEDS ORDERED: PANT40 PO (12:14)
--- NOTE | 2022-09-12 15:47 | NUR ---
DISCUSSED DISCHARGE INSTRUCTIONS WITH PT AND HIS DAUGHTER, ANUEL, WRITTEN COPY PROVIDED WELL HARD PRESCRIPTION FOR PANTOPRAZOLE FOR PT TO FILL TODAY SO HE DOES NOT MISS ANY DOSES PRIOR [facility] CALLED AND SPOKE WITH HOSPITALIST REGARDING CHRISTINE, ORDER RECEIVED TO REMOVE CHRISTINE AND PT TO RESUME HIS HOME STRAIGHT CATH REGIMEN. PERSONAL BELONGINGS SENT HOME WITH PT AND DAUGHTER. DAUGHTER PROVIDING TRANSPORTATION IN PERSONAL VEHICLE. IV REMOVED FROM LEFT ARM, CATHETER INTACT. PT HAS BEEN MAINTAINING OXYGEN SATURATIONS ON ROOM AIR FOR OVER 3 HOURS, SPOT CHECKS >94%.
== END 2022-09-12 15:45 | disposition home or self-care (01) | DRG 378 ==
LOC: ER 12:47 → MEDS 20:49 → ENPENDDIS 09-12 11:07 → MEDS 09-12 15:45
PROVIDERS: Family Medicine; Internal Medicine Gastroenterology; Student in an Organized Health Care Education/Training Program; ADMIT Student in an Organized Health Care Education/Training Program
PROC: 0T9B70Z Drainage of Bladder with Drainage Device, Via Natural or Artificial Opening (ICD-10-PCS; 2022-09-11)
PROC: 0DJ08ZZ Inspection of Upper Intestinal Tract, Via Natural or Artificial Opening Endoscopic (ICD-10-PCS; principal; 2022-09-11 11:00)
PROC: 30233N1 Transfusion of Nonautologous Red Blood Cells into Peripheral Vein, Percutaneous Approach (ICD-10-PCS; 2022-09-12)
DX: K26.4 Chronic or unspecified duodenal ulcer with hemorrhage (principal); D62 Acute posthemorrhagic anemia; N17.9 Acute kidney failure, unspecified; N39.0 Urinary tract infection, site not specified; I13.0 Hypertensive heart and chronic kidney disease with heart failure and stage 1 through stage 4 chronic kidney disease, or unspecified chronic kidney disease; I50.22 Chronic systolic (congestive) heart failure; I24.8 Other forms of acute ischemic heart disease; I47.1 Supraventricular tachycardia; K31.5 Obstruction of duodenum; K25.4 Chronic or unspecified gastric ulcer with hemorrhage; K70.30 Alcoholic cirrhosis of liver without ascites; N18.30 Chronic kidney disease, stage 3 unspecified; E83.42 Hypomagnesemia; I48.91 Unspecified atrial fibrillation; I34.0 Nonrheumatic mitral (valve) insufficiency; I25.10 Atherosclerotic heart disease of native coronary artery without angina pectoris; N40.0 Benign prostatic hyperplasia without lower urinary tract symptoms; G89.29 Other chronic pain; E11.22 Type 2 diabetes mellitus with diabetic chronic kidney disease; M19.90 Unspecified osteoarthritis, unspecified site; B95.5 Unspecified streptococcus as the cause of diseases classified elsewhere; K20.90 Esophagitis, unspecified without bleeding; F41.9 Anxiety disorder, unspecified; H26.9 Unspecified cataract; M54.50 Low back pain, unspecified; B96.4 Proteus (mirabilis) (morganii) as the cause of diseases classified elsewhere; B95.2 Enterococcus as the cause of diseases classified elsewhere; F10.20 Alcohol dependence, uncomplicated; I25.2 Old myocardial infarction; Z88.8 Allergy status to other drugs, medicaments and biological substances; Z79.891 Long term (current) use of opiate analgesic; Z79.890 Hormone replacement therapy; Z79.4 Long term (current) use of insulin; Z79.82 Long term (current) use of aspirin; Z85.51 Personal history of malignant neoplasm of bladder; Z86.19 Personal history of other infectious and parasitic diseases; Z86.73 Personal history of transient ischemic attack (TIA), and cerebral infarction without residual deficits; Z85.828 Personal history of other malignant neoplasm of skin; Z87.19 Personal history of other diseases of the digestive system; Z98.890 Other specified postprocedural states; Z90.49 Acquired absence of other specified parts of digestive tract; Z87.891 Personal history of nicotine dependence; Z95.5 Presence of coronary angioplasty implant and graft; Z87.01 Personal history of pneumonia (recurrent); Z95.1 Presence of aortocoronary bypass graft; Z87.81 Personal history of (healed) traumatic fracture
CPT/HCPCS: 36415; 36430; 71045; 80048; 80053; 81001; 82607; 82728; 82746; 82947; 83540; 83550; 83735; 83880; 84484; 85014; 85018; 85025; 85610; 86850; 86900; 86901; 86923; 87077; 87086; 87186; 93005; 93010; 94760; 96365; 96375; 99285-25; A9270; C9113; J0171; J0696; J1815; J1940; J2001; J2405; J2704; J3010; J3430; J3475; J7040; J7050; J7120; P9016; P9059

== ENCOUNTER 2022-09-16 11:29 | Inpatient (IN) | payer OTHER ==
[~2022-09-16] VITALS: Ht 162.6 cm; Wt 74.6 kg
[~2022-09-16 11:29] MED LIST changes: +METO50ER PO; +SULFAMETHOXAZO1 EAC1 PO
[2022-09-16 11:50] LABS: BASOPHILS ABSOLUTE AUTO 0.01 K/mm3 (0.00-0.23); BASOPHILS PERCENT AUTO 0 % (0-2); EOSINOPHILS ABSOLUTE AUTO 0.01 K/mm3 (0.00-0.68); EOSINOPHILS PERCENT AUTO 0 % (0-6); Hematocrit 26.4 % (37.0-53.0); Hemoglobin 8.8 g/dL (13.5-17.5); IMMATURE GRAN ABSOLUTE AUTO 0.02 K/mm3 (0.00-0.10); IMMATURE GRAN PERCENT AUTO 0 % (0-1); LYMPHOCYTES ABSOLUTE AUTO 0.69 K/mm3 (0.84-5.20); LYMPHOCYTES PERCENT AUTO 11 % (21-46); MONOCYTES ABSOLUTE AUTO 0.57 K/mm3 (0.16-1.47); MONOCYTES PERCENT AUTO 9 % (4-13); Mean Corpuscular HGB 34.1 pg (26.0-34.0); Mean Corpuscular HGB Conc 33.3 g/dL (31.5-36.5); Mean Corpuscular Volume 102 fL (80-100); NEUTROPHILS ABSOLUTE AUTO 5.04 K/mm3 (1.96-9.15); NEUTROPHILS PERCENT AUTO 79 % (41-73); Platelet Count 217 K/mm3 (150-400); RDW Standard Deviation 56.9 fL (35.1-46.3); Red Blood Cell Count 2.58 M/mm3 (4.30-5.90); White Blood Cell Count 6.34 K/mm3 (4.00-11.30)
[2022-09-16 12:05] LABS: International Normalized Ratio 1.06; Prothrombin Time Results 11.1 Sec (9.7-11.5)
[2022-09-16 12:11] LABS: Bilirubin, Total 0.4 mg/dL (0.1-1.0); Calcium, Blood 8.2 mg/dL (8.5-10.1); Creatinine, Blood 2.01 mg/dL (0.60-1.20); Globulin, Blood 3.1 g/dL (2.2-4.0); Magnesium, Blood 1.5 mg/dL (1.6-2.4); Potassium, Blood 4.5 mmol/L (3.5-5.5); Total Protein, Blood 6.1 g/dL (6.4-8.2)
[2022-09-16 16:28] LABS: Base Excess Venous -5.3 mmol/L; Bicarbonate Venous 20.7 mmol/L (24.0-30.0); PCO2 Venous 28.7 mmHg (38-42); pH Blood Venous 7.43 (7.34-7.37)
[2022-09-16] MEDS ORDERED: FAMO20 PO (16:35)
[2022-09-16] MEDS ORDERED: LEVOFLOXACIN750 MG PO (16:35)
[2022-09-16] MEDS ORDERED: ASPI81CH PO (16:36)
[2022-09-16] MEDS ORDERED: ALOGLIPTIN12.5 M7 PO (16:41)
--- NOTE | 2022-09-16 16:48 | NUR ---
PT CHART REVIEWED FOR ADMISSION
[2022-09-16 17:14] VITALS: BP 151/82
[2022-09-16 19:29] VITALS: BP 136/116
--- NOTE | 2022-09-16 19:36 | NUR ---
HOSPITALIST HOSPITALIST NOTIFIED OF ELEVATED TROP AND L SHOULDER PAIN. HTN NOTED ON PM VITALS. ORDER OBTAIN TO GIVE LABETALOL AND TYLENOL. EKG IMMEDIATELY IF PT IS EXXPERIENCING CP AND TO CALL BACK WITH FURTHER CONCERNS.
[2022-09-16 20:50] VITALS: BP 112/63
--- NOTE | 2022-09-16 21:21 | NUR ---
HOSPITALIST HOSPITALIST NOTIFIED OF PTS ELEVATED TROPONIN. PT REMAINS ASYMPTOMATIC OF CP/PRESSURE. NO FURTHER ORDERS AT THIS TIME
[2022-09-17 04:09] VITALS: BP 123/71
--- NOTE | 2022-09-17 04:45 | NUR ---
SHIFT SUMMARY VSS. PT SLEPT WELL T/O THE NIGHT. SEE PREVIOUS NOTES FOR HOPITALIST UPDATES. TELE READS AFIB 76. PT MEDICATED FOR PAIN ITH ULTRAM AND TYLENOL WITH GOOD RESULTS. CONDOM CATH REMAINED IN PLACE T/O THE NIGHT TO ASSIST WITH DIURESING. PLAN FOR PT TO CONTINUE TO RECIEVE LSIX, TREND LABS, AND OBSERVE. NO IGNITION SOURCE NOTED
[2022-09-17 05:08] LABS: BASOPHILS ABSOLUTE AUTO 0.02 K/mm3 (0.00-0.23); BASOPHILS PERCENT AUTO 0 % (0-2); EOSINOPHILS ABSOLUTE AUTO 0.21 K/mm3 (0.00-0.68); EOSINOPHILS PERCENT AUTO 4 % (0-6); Hematocrit 25.8 % (37.0-53.0); Hemoglobin 8.6 g/dL (13.5-17.5); IMMATURE GRAN ABSOLUTE AUTO 0.02 K/mm3 (0.00-0.10); IMMATURE GRAN PERCENT AUTO 0 % (0-1); LYMPHOCYTES ABSOLUTE AUTO 1.29 K/mm3 (0.84-5.20); LYMPHOCYTES PERCENT AUTO 27 % (21-46); MONOCYTES ABSOLUTE AUTO 0.62 K/mm3 (0.16-1.47); MONOCYTES PERCENT AUTO 13 % (4-13); Mean Corpuscular HGB 33.3 pg (26.0-34.0); Mean Corpuscular HGB Conc 33.3 g/dL (31.5-36.5); Mean Corpuscular Volume 100 fL (80-100); Mean Platelet Volume 10.8 fL (9.1-12.4); NEUTROPHILS ABSOLUTE AUTO 2.64 K/mm3 (1.96-9.15); NEUTROPHILS PERCENT AUTO 55 % (41-73); Platelet Count 213 K/mm3 (150-400); RDW Coefficient Variation 14.8 % (11.7-14.2); RDW Standard Deviation 54.7 fL (35.1-46.3); Red Blood Cell Count 2.58 M/mm3 (4.30-5.90)
[2022-09-17 05:38] LABS: Albumin, Blood 2.9 g/dL (3.4-5.0); Bilirubin, Total 0.3 mg/dL (0.1-1.0); Bun/Creatinine Ratio 10.6 (12.0-20.0); Calcium, Blood 8.5 mg/dL (8.5-10.1); Creatinine, Blood 2.18 mg/dL (0.60-1.20); Globulin, Blood 2.8 g/dL (2.2-4.0); Potassium, Blood 3.7 mmol/L (3.5-5.5); Total Protein, Blood 5.7 g/dL (6.4-8.2)
[2022-09-17 07:43] VITALS: BP 105/73
--- NOTE | 2022-09-17 14:39 | NUR ---
Received call from [facility] RN Cally. She reports learning daughter has reported a significant decline in Pt over recent weaks. Pt has had 3 hospitalizations in the last couple of months. Cally reports Pt may benefit from hospice discussion as an option. He also may benefit from [facility] if he is interested but would need to be willing to stop going to [facility]. The [facility] is curently re-assessing laboratory administrative director hours for Pt as well. Pt is known to this science writer from previous hospital stay. Pt resting in bed upon arrival. Pt appears to be in good spirits. Engaged in therapeutic conversation regarding goals of care. Pt reports daughter Sera still lives with him. He reports still not having a F/U with urologist for discovery of new bladder tumor. He reports being told his heart was to week to tolerate any procedure at this time. He reports being puzzled and states my heart was fine to undergoe back surgery. Continued therapeutic listening. Relayed information given to this RN from Cally at the [facility]. Discussed hospice as being an option if coming to the hospital becomes to burdensome. Educated on hospice philosophy. Discussed his option for home base primary care. He reports he would like to discuss home base primary care with his daughter and is not ready for hospice. Engaged in therapeutic conversation regarding code status wishes. Pt reports his wishes are Limited code. He states being ok with defibrillation and medications only. Pt expresses appreciation and reports no other concerns at this time. Spoke with Dr Smiley. Placed Limited Code status in [facility] of defibrillation and medications only per V/O from Dr Smiley. Palliative Care will remain available
[2022-09-17 15:30] VITALS: BP 124/69
--- NOTE | 2022-09-17 16:45 | NUR ---
SHIFT SUMMARY: Pt remains awake and alert this shift. VSS. Afib on tele. Lung sounds with fine crackles horacio bases. O2 sat 98% 3L NC. Code stateus chanbed to limited. No CPR, No intubation, yes to defib and meds per [facility]. Pt with condom cath in place, however 640 then 541 ml on bladder scan today. Orders to straight cath. Outputs documented. Yellow clear output. Po meds effective for left shoulder pain. Ambulated with PT and walker today, Up in chair most of the afternoon.
[2022-09-17 19:47] VITALS: BP 126/63
[2022-09-18 04:36] VITALS: BP 116/66
--- NOTE | 2022-09-18 06:06 | NUR ---
SHIFT SUMMARY PT SITTING UP IN CHAIR DURING BEDSIDE ROUNDS, PT MOVED FROM CHAIR TO BED- CONDOM CATH REMOVED WHEN MOVING TO BED- REPLACED CONDOM CATH- IGNITION ASSESSMENT DONE- PT DENIED HAVING ANY IGNITION ITEMS PT TOOK HS MEDS AND REQUESTED TRAMADOL FOR BILAT SHOULDER PAIN - PT CONTINUED TO C/O PAIN AND INSOMNIA, CALL TO YE ASSEMBLER [employer] AND G[employer] TURBINE REQUESTING ADDITIONAL PAIN MEDICATION AND SLEEP AIDE- NEW ORDER FOR OXYCODONE 5MG AND TRAZADONE 25MG GIVEN TO PT- PT SLEPT UNTIL 5AM - PT AWAKENED FOR STRAIGHT CATH- NEW CONDOM CATH REPLACED- PT TOLERATED BOTH WELL- PT REQUESTING PALLATIVE CARE TO DISCUSS HOSPICE WITH HIM - CONSULT ORDERED- WILL PASS ON TO DAY SHIFT AND PALLATIVE ORDER
[2022-09-18 07:51] VITALS: BP 121/63
[2022-09-18] MEDS ORDERED: POTA10T PO (11:09)
[2022-09-18] MEDS ORDERED: SENN187 PO (11:10)
[2022-09-18] MEDS ORDERED: B-1100 M1 PO (11:10)
[2022-09-18] MEDS ORDERED: VITAMIN D31000 UNI1 PO (11:11)
[2022-09-18] MEDS ORDERED: FURO40 PO (12:46)
--- NOTE | 2022-09-18 12:59 | NUR ---
DISCHARGE SUMMARY PATIENT DISCHARGE PACKET GIVEN WITH QUESTIONS ANSWERED. PT PERSISTENT THAT [facility] EVEN THOUGH THEY WON'T BE FILLED TODAY DUE TO THE WEEKEND, EDUCATED ON THE IMPORTANCE OF TAKING MEDICATIONS PERSCRIBED AND TO NOT MISS DAYS UNLESS DIRECTED BY DOC TO DO SO. OFFERED TO FAX MEDS TO ANOTHER PHARMACY AND PROVIDED VERBAL LIST OF OPTIONS TO WHICH PT DECLINED. STRAIGHT CATH PERFORMED PRIOR TO DISCHARGE, NO COMPLICATIONS. DAUGHTER ANUEL TO TRANSPORT, WAITING ON HER ARRIVAL. NO SOURCES OF IGNITON ON PERSON OR VISITORS.
--- NOTE | 2022-09-18 14:53 | NUR ---
PATIENT TRANSPORTATION HAVE ATTEMPTED TO CONTACT DAUGHTER X4 THIS SHIFT TO RECORD CHANGER PATIENT. NO ANSWER. PATIENT STATES HE SPOKE TO HER AND PICKUP WOULD BE 1130, AT TIME OF NOTE DAUGHTER REMAINS UNREACHABLE VIA STAFF AND PATIENT IS STILL IN OUR CARE.
[2022-09-18 15:30] VITALS: BP 115/80
--- NOTE | 2022-09-18 19:27 | NUR ---
SPOKE WITH DAUGHTER ANUEL, SHE IS ON HER WAY TO PHYSICIAN ASST FATHER.
== END 2022-09-18 20:28 | disposition home or self-care (01) | DRG 280 ==
LOC: ER 11:29 → MEDS 11:30
PROVIDERS: Emergency Medicine; ADMIT Internal Medicine
DX: I13.0 Hypertensive heart and chronic kidney disease with heart failure and stage 1 through stage 4 chronic kidney disease, or unspecified chronic kidney disease (principal); I21.A1 Myocardial infarction type 2; I50.23 Acute on chronic systolic (congestive) heart failure; J96.01 Acute respiratory failure with hypoxia; N18.4 Chronic kidney disease, stage 4 (severe); I50.32 Chronic diastolic (congestive) heart failure; N13.8 Other obstructive and reflux uropathy; F11.20 Opioid dependence, uncomplicated; I48.20 Chronic atrial fibrillation, unspecified; J44.9 Chronic obstructive pulmonary disease, unspecified; G89.29 Other chronic pain; M19.90 Unspecified osteoarthritis, unspecified site; G47.33 Obstructive sleep apnea (adult) (pediatric); M54.9 Dorsalgia, unspecified; I25.5 Ischemic cardiomyopathy; D63.1 Anemia in chronic kidney disease; N40.1 Benign prostatic hyperplasia with lower urinary tract symptoms; F10.20 Alcohol dependence, uncomplicated; I25.10 Atherosclerotic heart disease of native coronary artery without angina pectoris; E11.22 Type 2 diabetes mellitus with diabetic chronic kidney disease; B19.20 Unspecified viral hepatitis C without hepatic coma; Z88.8 Allergy status to other drugs, medicaments and biological substances; Z79.899 Other long term (current) drug therapy; Z86.73 Personal history of transient ischemic attack (TIA), and cerebral infarction without residual deficits; Z79.4 Long term (current) use of insulin; Z85.51 Personal history of malignant neoplasm of bladder; Z87.19 Personal history of other diseases of the digestive system; Z95.5 Presence of coronary angioplasty implant and graft; Z85.828 Personal history of other malignant neoplasm of skin; Z98.890 Other specified postprocedural states; Z95.1 Presence of aortocoronary bypass graft; Z90.49 Acquired absence of other specified parts of digestive tract; Z79.82 Long term (current) use of aspirin; Z79.2 Long term (current) use of antibiotics; Z87.891 Personal history of nicotine dependence; Z86.79 Personal history of other diseases of the circulatory system; Z87.440 Personal history of urinary (tract) infections
CPT/HCPCS: 36415; 71046; 80053; 82803; 82947; 83735; 83880; 84484; 85025; 85610; 93005; 93010; 94640; 94664; 94760; 96374; 96375; 96376; 97116; 97162; 97530; 99285-25; A9270; G0378; J1815; J1940

== ENCOUNTER 2022-10-12 12:00 | Inpatient (IN) | payer OTHER, BC ==
[~2022-10-12] VITALS: Ht 162.6 cm; Wt 68.0 kg
[~2022-10-12 12:00] MED LIST changes: +ALOGLIPTIN12.5 M7 PO; +B-1100 M1 PO; +FURO40 PO; +POTA10T PO
[2022-10-12 13:50] LABS: BASOPHILS ABSOLUTE AUTO 0.02 K/mm3 (0.00-0.23); BASOPHILS PERCENT AUTO 0 % (0-2); EOSINOPHILS ABSOLUTE AUTO 0.14 K/mm3 (0.00-0.68); EOSINOPHILS PERCENT AUTO 2 % (0-6); Hematocrit 30.2 % (37.0-53.0); IMMATURE GRAN ABSOLUTE AUTO 0.03 K/mm3 (0.00-0.10); IMMATURE GRAN PERCENT AUTO 0 % (0-1); LYMPHOCYTES ABSOLUTE AUTO 1.34 K/mm3 (0.84-5.20); LYMPHOCYTES PERCENT AUTO 16 % (21-46); MONOCYTES ABSOLUTE AUTO 0.57 K/mm3 (0.16-1.47); MONOCYTES PERCENT AUTO 7 % (4-13); Mean Corpuscular HGB 32.1 pg (26.0-34.0); Mean Corpuscular HGB Conc 33.1 g/dL (31.5-36.5); Mean Corpuscular Volume 97 fL (80-100); Mean Platelet Volume 10.5 fL (9.1-12.4); NEUTROPHILS ABSOLUTE AUTO 6.35 K/mm3 (1.96-9.15); NEUTROPHILS PERCENT AUTO 75 % (41-73); Platelet Count 262 K/mm3 (150-400); RDW Coefficient Variation 13.2 % (11.7-14.2); RDW Standard Deviation 47.3 fL (35.1-46.3); Red Blood Cell Count 3.12 M/mm3 (4.30-5.90); White Blood Cell Count 8.45 K/mm3 (4.00-11.30)
[2022-10-12 14:22] LABS: Bun/Creatinine Ratio 29.2 (12.0-20.0); Calcium, Blood 9.2 mg/dL (8.5-10.1); Creatinine, Blood 3.15 mg/dL (0.60-1.20); Magnesium, Blood 1.8 mg/dL (1.6-2.4); Potassium, Blood 5.1 mmol/L (3.5-5.5)
[2022-10-12 14:33] LABS: Source, Urine Straight Cath
[2022-10-12 14:39] LABS: Influenza A, PCR NEGATIVE (NEGATIVE); Influenza B, PCR NEGATIVE (NEGATIVE); Resp Syncytial Virus, PCR NEGATIVE (NEGATIVE); SARS-Cov-2 (COVID-19) PCR, MMC NEGATIVE (NEGATIVE)
[2022-10-12 14:44] LABS: Appearance, Urine Cloudy (Clear); Bilirubin, Urine Neg (Neg); Blood, Urine 5+ (Neg); Color, Urine Yellow (P-Yellow); Glucose Qualitative, Urine Neg (Neg); Ketones, Urine Neg (Neg); Leukocyte Esterase, Urine 3+ (Neg); Nitrite, Urine Pos (Neg); Protein, Urine 3+ (Neg); Specific Gravity, Urine 1.015 (1.003-1.022); Urobilinogen, Urine NORM (Normal)
[2022-10-12 14:57] LABS: Bacteria Many /hpf; Red Blood Cells, Urine 25-50 /hpf (0-2); Squamous Epithelial Cells Not Seen /hpf (Few); Triple Phosphate Crystals Few /hpf; White Blood Cells, Urine 25-50 /hpf (0-5)
[2022-10-12 19:47] VITALS: BP 137/81
[2022-10-13] VITALS (35 sets, daily range): BP systolic 76–164; BP diastolic 31–96
[2022-10-13 04:13] LABS: BASOPHILS ABSOLUTE AUTO 0.02 K/mm3 (0.00-0.23); BASOPHILS PERCENT AUTO 0 % (0-2); EOSINOPHILS ABSOLUTE AUTO 0.09 K/mm3 (0.00-0.68); EOSINOPHILS PERCENT AUTO 2 % (0-6); Hemoglobin 9.1 g/dL (13.5-17.5); IMMATURE GRAN ABSOLUTE AUTO 0.03 K/mm3 (0.00-0.10); IMMATURE GRAN PERCENT AUTO 1 % (0-1); LYMPHOCYTES ABSOLUTE AUTO 0.95 K/mm3 (0.84-5.20); LYMPHOCYTES PERCENT AUTO 16 % (21-46); MONOCYTES ABSOLUTE AUTO 0.61 K/mm3 (0.16-1.47); MONOCYTES PERCENT AUTO 10 % (4-13); Mean Corpuscular HGB 32.4 pg (26.0-34.0); Mean Corpuscular HGB Conc 32.5 g/dL (31.5-36.5); Mean Corpuscular Volume 100 fL (80-100); Mean Platelet Volume 10.3 fL (9.1-12.4); NEUTROPHILS ABSOLUTE AUTO 4.21 K/mm3 (1.96-9.15); NEUTROPHILS PERCENT AUTO 71 % (41-73); Platelet Count 183 K/mm3 (150-400); RDW Coefficient Variation 13.2 % (11.7-14.2); RDW Standard Deviation 47.7 fL (35.1-46.3); Red Blood Cell Count 2.81 M/mm3 (4.30-5.90); White Blood Cell Count 5.91 K/mm3 (4.00-11.30)
[2022-10-13 04:51] LABS: Albumin, Blood 2.9 g/dL (3.4-5.0); Albumin/Globulin Ratio 0.9 (0.8-1.8); Bilirubin, Total 0.3 mg/dL (0.1-1.0); Bun/Creatinine Ratio 38.3 (12.0-20.0); Calcium, Blood 9.1 mg/dL (8.5-10.1); Creatinine, Blood 2.27 mg/dL (0.60-1.20); Globulin, Blood 3.3 g/dL (2.2-4.0); Total Protein, Blood 6.2 g/dL (6.4-8.2)
--- NOTE | 2022-10-13 06:33 | NUR ---
PATIENT ORIENTED X3-4, FORGETFUL, SLIGHT FACIAL DROOP PT REPORTS BASELINE. DENIES CP OR DISCOMFORT. ST ELEVATION ALARM ON TELEMETRY, NOTIFIED AND EKG OBTAINED THIS AM. VSS PER PT TREND ON RA. MED LIST OBTAINED FROM NE. UPDATED IN CHART. WILL PASS ON TO DAY RN
[2022-10-13] MEDS ORDERED: OXYB5 PO (07:25)
[2022-10-13] MEDS ORDERED: LACT PO (07:26)
[2022-10-13] MEDS ORDERED: ASPI81CH PO (07:26)
[2022-10-13] MEDS ORDERED: FOLI1 PO (07:26)
[2022-10-13] MEDS ORDERED: FAMO20 PO (07:27)
[2022-10-13 09:48] LABS: Anti-Xa UFH, PHA Monitoring <0.10 IU/mL; International Normalized Ratio 1.01; Prothrombin Time Results 10.6 Sec (9.7-11.5)
--- NOTE | 2022-10-13 15:36 | NUR ---
ASSUMED CARE OF PT AT 0700 THIS AM. PT REPORTING SHARP SUBSTERNAL CHEST PAIN, UNABLE TO RATE ON 0-10 SCALE, "IT HURTS REAL BAD." N/V ALSO NOTED. HR INCREASED INTO THE 120-130, APPEARED TO BE ST WITH PVCs ON TUBE INSPECTOR PER THIS RN'S INTERPRETATION. SEE DOCUMENTED VS AND ASSESSMENT. CHEST PAIN MOSTLY RELIEVED WITH NITRO X 2, ORDER FOR 0.5MG DILAUDID AND PT REPORTS COMPLETE PAIN RELIEF. STAT TROPONIN ORDERED. PT GIVEN GI COCKTAIL AND TOTAL NITRO X 2. DR CLAUDIA WADE AND DR CORONA IN ROOM FOR MAJORITY OF THIS EPISODE. 0945 PT RESTING COMFORTABLY, THIS RN IN ROOM TO GIVE AM MEDICATIONS. PT ABLE TO TAKE PO MEDICATION WITHOUT DIFFICULTY WITH SOME ORANGE JUICE. PT BECAME NAUSEAED AND BEGAN VOMITING WITHIN MINUTES OF TAKING PILLS. HR JUMPS TO 150-160 AND PT BEGAN TO COMPLAIN OF SHARP SUBSTERNAL CHEST PAIN ONCE AGAIN. IT APPEARED THAT TWO MEDICATIONS WERE IN THE EMESIS, ONE WAS A PROBIOTIC CAPSULE AND THE OTHER WASN'T IDENTIFIABLE. IV ONDANSETRON GIVEN FOR NAUSEA AND NITRO X [address] CHEST PAIN. [address] GALVAN NOTIFIED AND ORDER FOR METROPROLOL 5MG IV PUSH GIVEN WITH HR DECREASING INTO LOW 100s. 2ND IV PLACED, 20G R AC. PT REPORTS SYMPTOM RELIEF, NO FUTHER N/V OR CHEST PAIN. 1320 BPs NOTED TO DROP INTO THE 80s SYSTOLIC. MAPs HOVERING [address] CLAUDIA WADE NOTIFIED, ORDERS FOR BOLUS RECEIVED. BOLUS GIVEN AND BPs IN 90s WITH MAPs>65. PT APPEARS MORE ASHEN AND TIRED THIS AFTERNOON. 1600 DR TAYLOR AND CHLOE AT BEDSIDE TO CHECK ON PT. NEW ORDERS RECEIVED. PT IS RESTING COMFORTABLY AT THIS TIME. DR GALVAN ALSO ROUNDED ON PT, MED REC REVIEWED AND ORDERS UPDATED. PT AWAKE AND ALERT, BUT APPEARS TIRED AND PALE. PT ABLE TO USE CALL LIGHT FOR NEEDS, CALL LIGHT IN REACH, BED ALARM ON FOR SAFETY. WILL CONTINUE TO MONITOR AND GIVE REPORT TO NOC SHIFT RN.
--- NOTE | 2022-10-13 15:56 | NUR ---
Noted no code status for this pt. Called Dr. St, received vo from him for DNR code status. Order placed.
[2022-10-13 16:33] LABS: Hematocrit 23.3 % (37.0-53.0); Hemoglobin 7.8 g/dL (13.5-17.5)
[2022-10-14] VITALS (17 sets, daily range): BP systolic 87–135; BP diastolic 48–74
[2022-10-14 01:29] LABS: Hematocrit 22.9 % (37.0-53.0); Hemoglobin 7.7 g/dL (13.5-17.5)
[2022-10-14 04:58] LABS: Bun/Creatinine Ratio 42.3 (12.0-20.0); Calcium, Blood 8.2 mg/dL (8.5-10.1); Creatinine, Blood 2.2 mg/dL (0.60-1.20); Potassium, Blood 5.1 mmol/L (3.5-5.5)
--- NOTE | 2022-10-14 06:45 | NUR ---
SHIFT SUMMARY PATIENT ALERT AND ORIENTED X 3. PATIENT WEAK AND REQUIRED 2 PERSON ASSIST TO THE BEDSIDE COMMODE. PATIENT HAD MULTIPLE LOOSE, BLACK STOOLS. PATIENT ALSO EXPERIENCED NAUSEA, VOMITING, AND ABDOMINAL PAIN PRIOR TO THE BOWEL MOVEMENTS STARTING. PATIENT MEDICATED PER EMAR FOR NAUSEA. PATIENT RECEIVED 1 UNIT OF PRBC'S, TOLERATED IT WELL. WILL CONTINUE TO MONITOR. CALL LIGHT WITHIN REACH.
[2022-10-14 08:22] LABS: BASOPHILS ABSOLUTE AUTO 0.01 K/mm3 (0.00-0.23); BASOPHILS PERCENT AUTO 0 % (0-2); EOSINOPHILS ABSOLUTE AUTO 0.16 K/mm3 (0.00-0.68); EOSINOPHILS PERCENT AUTO 3 % (0-6); Hematocrit 22.7 % (37.0-53.0); Hemoglobin 7.8 g/dL (13.5-17.5); IMMATURE GRAN ABSOLUTE AUTO 0.04 K/mm3 (0.00-0.10); IMMATURE GRAN PERCENT AUTO 1 % (0-1); LYMPHOCYTES ABSOLUTE AUTO 1.96 K/mm3 (0.84-5.20); LYMPHOCYTES PERCENT AUTO 41 % (21-46); MONOCYTES ABSOLUTE AUTO 0.72 K/mm3 (0.16-1.47); MONOCYTES PERCENT AUTO 15 % (4-13); Mean Corpuscular HGB 32.5 pg (26.0-34.0); Mean Corpuscular HGB Conc 34.4 g/dL (31.5-36.5); Mean Platelet Volume 10.5 fL (9.1-12.4); NEUTROPHILS ABSOLUTE AUTO 1.91 K/mm3 (1.96-9.15); NEUTROPHILS PERCENT AUTO 40 % (41-73); Platelet Count 175 K/mm3 (150-400); RDW Coefficient Variation 14.1 % (11.7-14.2); RDW Standard Deviation 47.7 fL (35.1-46.3)
[2022-10-14 08:23] LABS: Mean Corpuscular Volume 95 fL (80-100)
[2022-10-14 12:26] LABS: Hematocrit 25.5 % (37.0-53.0); Hemoglobin 8.8 g/dL (13.5-17.5)
[2022-10-14 13:36] LABS: Hematocrit 24.8 % (37.0-53.0); Hemoglobin 8.6 g/dL (13.5-17.5)
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
--- NOTE | 2022-10-14 18:36 | NUR ---
NO ACUTE CHANGES SINCE LAST NOTE. PT'S DTR HARRY AT BEDSIDE, UPDATED ON PT'S CONDITION. SHE IS PLEASANT AND APPROPRIATE ON MY ENCOUNTER. PT IS SITTING UP IN BED, AWAKE ALERT AND TOLERATING CLEAR LIQUIDS. NO NEEDS AT THIS TIME. PT IS ABLE TO USE CALL LIGHT FOR NEEDS. CALL LIGHT IN REACH. WILL CONTINUE TO MONITOR AND GIVE REPORT TO NOC SHIFT RN.
[2022-10-14 22:13] LABS: Hematocrit 24.3 % (37.0-53.0); Hemoglobin 8.5 g/dL (13.5-17.5)
[2022-10-15 03:59] LABS: BASOPHILS ABSOLUTE AUTO 0.01 K/mm3 (0.00-0.23); BASOPHILS PERCENT AUTO 0 % (0-2); EOSINOPHILS ABSOLUTE AUTO 0.07 K/mm3 (0.00-0.68); EOSINOPHILS PERCENT AUTO 2 % (0-6); Hematocrit 23.5 % (37.0-53.0); Hemoglobin 8.1 g/dL (13.5-17.5); IMMATURE GRAN ABSOLUTE AUTO 0.06 K/mm3 (0.00-0.10); IMMATURE GRAN PERCENT AUTO 2 % (0-1); LYMPHOCYTES ABSOLUTE AUTO 1.15 K/mm3 (0.84-5.20); LYMPHOCYTES PERCENT AUTO 29 % (21-46); MONOCYTES ABSOLUTE AUTO 0.48 K/mm3 (0.16-1.47); MONOCYTES PERCENT AUTO 12 % (4-13); Mean Corpuscular HGB Conc 34.5 g/dL (31.5-36.5); Mean Corpuscular Volume 93 fL (80-100); Mean Platelet Volume 10.2 fL (9.1-12.4); NEUTROPHILS ABSOLUTE AUTO 2.18 K/mm3 (1.96-9.15); NEUTROPHILS PERCENT AUTO 55 % (41-73); Platelet Count 177 K/mm3 (150-400); RDW Standard Deviation 46.7 fL (35.1-46.3); Red Blood Cell Count 2.53 M/mm3 (4.30-5.90); White Blood Cell Count 3.95 K/mm3 (4.00-11.30)
[2022-10-15 04:24] LABS: Calcium, Blood 8.7 mg/dL (8.5-10.1); Creatinine, Blood 1.6 mg/dL (0.60-1.20); Potassium, Blood 4.2 mmol/L (3.5-5.5)
[2022-10-15 04:58] VITALS: BP 119/62
--- NOTE | 2022-10-15 06:40 | NUR ---
SHIFT SUMMARY PATIENT ALERT AND ORIENTED X 3-4. HAD NO COMPLAINTS OF PAIN OR SHORTNESS OF BREATH. MEDICATED PER EMAR FOR SLEEP. PATIENT DID NOT HAVE ANY BOWEL MOVEMENT OVERNIGHT. CHRISTINE PATENT AND DRAINING TO GRAVITY. VITAL SIGNS STABLE. NO ACUTE ISSUES NOTED OVERNIGHT. WILL CONTINUE TO MONITOR. CALL LIGHT WITHIN REACH.
[2022-10-15 08:42] VITALS: BP 128/60
[2022-10-15 11:56] VITALS: BP 103/81
[2022-10-15 15:38] LABS: Hematocrit 23.6 % (37.0-53.0); Hemoglobin 8.3 g/dL (13.5-17.5)
[2022-10-15 16:31] VITALS: BP 108/60
--- NOTE | 2022-10-15 17:41 | NUR ---
PT IS A/O X3. HE IS ABLE TO TRANSFER FROM BED TO CHAIR. HE DID HAVE ONE EPISODE OF VOMITING TODAY. OTHER DORADO HE HAD AN UNEVENTFUL DAY. VSS. DENIES PAIN OR SOB. NO BM TODAY AT THE TIME OF THIS NOTE. PT IS ORIENTED AND ABLE TO MAKE NEEDS KNOWN, HE USES CALL LIGHT APPROPRIATELY. PALLIATIVE CARE AND CARE MANAGEMENT HAVE ALL MET WITH PT TODAY
--- NOTE | 2022-10-15 19:01 | NUR ---
Comprehensive and gently discussion about his advance care planning needs and his prognosis. Assited his with estate planning and the differnce in the documents. His is [facility] . He wants to stay in his home. we dicaussed his frequent falls his cardiac issues and symptoms. We reviewed hsopice sooner than later so he does not suffer and can have support at home. He was very interested he will speak with daughter today and decide on a plan . will follow up.
[2022-10-15 21:47] LABS: Hematocrit 24.9 % (37.0-53.0); Hemoglobin 8.9 g/dL (13.5-17.5)
[2022-10-15 22:10] VITALS: BP 108/53
[2022-10-15 23:27] VITALS: BP 142/74
[2022-10-16 03:55] LABS: BASOPHILS ABSOLUTE AUTO 0.01 K/mm3 (0.00-0.23); BASOPHILS PERCENT AUTO 0 % (0-2); EOSINOPHILS ABSOLUTE AUTO 0.09 K/mm3 (0.00-0.68); EOSINOPHILS PERCENT AUTO 2 % (0-6); Hematocrit 22.4 % (37.0-53.0); Hemoglobin 7.8 g/dL (13.5-17.5); IMMATURE GRAN ABSOLUTE AUTO 0.03 K/mm3 (0.00-0.10); IMMATURE GRAN PERCENT AUTO 1 % (0-1); LYMPHOCYTES ABSOLUTE AUTO 1.18 K/mm3 (0.84-5.20); LYMPHOCYTES PERCENT AUTO 28 % (21-46); MONOCYTES ABSOLUTE AUTO 0.54 K/mm3 (0.16-1.47); MONOCYTES PERCENT AUTO 13 % (4-13); Mean Corpuscular HGB 31.8 pg (26.0-34.0); Mean Corpuscular HGB Conc 34.8 g/dL (31.5-36.5); Mean Corpuscular Volume 91 fL (80-100); NEUTROPHILS ABSOLUTE AUTO 2.41 K/mm3 (1.96-9.15); NEUTROPHILS PERCENT AUTO 57 % (41-73); Platelet Count 183 K/mm3 (150-400); RDW Coefficient Variation 13.9 % (11.7-14.2); RDW Standard Deviation 45.1 fL (35.1-46.3); Red Blood Cell Count 2.45 M/mm3 (4.30-5.90); White Blood Cell Count 4.26 K/mm3 (4.00-11.30)
[2022-10-16 04:16] LABS: Bun/Creatinine Ratio 35.7 (12.0-20.0); Calcium, Blood 9.1 mg/dL (8.5-10.1); Creatinine, Blood 1.54 mg/dL (0.60-1.20); Potassium, Blood 3.9 mmol/L (3.5-5.5)
[2022-10-16 04:20] VITALS: BP 129/62
--- NOTE | 2022-10-16 06:19 | NUR ---
SHIFT SUMMARY PATIENT ALERT AND ORIENTED X3, PLEASANT AND COOPORATIVE WITH CARE. PATIENT HAD NO COMPLAINTS OF PAIN OR NAUSEA, DID NOT HAVE ANY BOWEL MOVEMENTS OVERNIGHT. VITAL SIGNS STABLE, PATIENT DENIES CHEST PAIN OR SHORTNESS OF BREATH. SPO2 HIGH 90'S ON ROOM AIR. NO ACUTE ISSUES NOTED OVERNIGHT. WILL CONTINUE TO MONITOR. CALL LIGHT WITHIN REACH.
[2022-10-16 08:20] VITALS: BP 122/70
[2022-10-16 09:00] VITALS: BP 110/90
[2022-10-16 10:00] VITALS: BP 88/45
[2022-10-16 10:15] VITALS: BP 109/95
[2022-10-16 11:15] VITALS: BP 111/58
[2022-10-16 13:05] LABS: Hematocrit 26.8 % (37.0-53.0); Hemoglobin 9.3 g/dL (13.5-17.5)
[2022-10-16] MEDS ORDERED: ATOR40TA PO (15:08)
[2022-10-16] MEDS ORDERED: LOSA25 PO (15:09)
[2022-10-16] MEDS ORDERED: CEFD300 PO (15:09)
--- NOTE | 2022-10-16 17:15 | NUR ---
IV AND CATHETER REMOVED, ARM PRESSURE DRESSED TO PREVENT BLEEDING. PT PROVIDED WITH D/C TEACHING, AND HE ASKED THAT RX FOR ANTIBIOTIC BE FAXED TO [facility], PT EDUCATED ABOUT TAKING FULL COURSE OF ANTITIOTICS. DAUGHTER ARRIVES TO PICK PT UP SEVERAL HOURS AFTER BEING CALLED THAT PT WAS READY FOR D/C SHE IS ALSO EDUCATED ABOUT RX AT [facility] AND TAKING FULL COURSE OF ANTIBIOTICS, SHE REPORTS THAT SHE HAS NO MONEY, PT AND DAUGTHER ARGUE ABOUT TOPIC PT STS HE WILL HEEL BUILDER RX.
--- NOTE | 2022-10-19 13:43 | NUR ---
Pt high risk for readmission. updated amedysis on pt need for hospice care they will follow up.
== END 2022-10-16 16:40 | disposition home health service (06) | DRG 698 ==
LOC: ER 12:00 → PCU 19:00
PROVIDERS: Family Medicine; Nurse Practitioner Pediatrics; Student in an Organized Health Care Education/Training Program; ADMIT Internal Medicine
PROC: 30233N1 Transfusion of Nonautologous Red Blood Cells into Peripheral Vein, Percutaneous Approach (ICD-10-PCS; principal; 2022-10-13)
DX: T83.518A Infection and inflammatory reaction due to other urinary catheter, initial encounter (principal); N39.0 Urinary tract infection, site not specified; I21.4 Non-ST elevation (NSTEMI) myocardial infarction; I63.9 Cerebral infarction, unspecified; N17.9 Acute kidney failure, unspecified; D62 Acute posthemorrhagic anemia; I13.0 Hypertensive heart and chronic kidney disease with heart failure and stage 1 through stage 4 chronic kidney disease, or unspecified chronic kidney disease; I50.22 Chronic systolic (congestive) heart failure; K92.2 Gastrointestinal hemorrhage, unspecified; N18.4 Chronic kidney disease, stage 4 (severe); Z66 Do not resuscitate; Z51.5 Encounter for palliative care; B96.4 Proteus (mirabilis) (morganii) as the cause of diseases classified elsewhere; E11.22 Type 2 diabetes mellitus with diabetic chronic kidney disease; I25.10 Atherosclerotic heart disease of native coronary artery without angina pectoris; B19.20 Unspecified viral hepatitis C without hepatic coma; N40.1 Benign prostatic hyperplasia with lower urinary tract symptoms; I44.7 Left bundle-branch block, unspecified; R33.8 Other retention of urine; N28.1 Cyst of kidney, acquired; C67.9 Malignant neoplasm of bladder, unspecified; Z88.8 Allergy status to other drugs, medicaments and biological substances; Z79.82 Long term (current) use of aspirin; Z79.899 Other long term (current) drug therapy; Z20.822 Contact with and (suspected) exposure to COVID-19; Z79.4 Long term (current) use of insulin; G89.29 Other chronic pain; M19.90 Unspecified osteoarthritis, unspecified site; Z85.828 Personal history of other malignant neoplasm of skin; Z87.891 Personal history of nicotine dependence; Z90.49 Acquired absence of other specified parts of digestive tract; Z98.890 Other specified postprocedural states; F10.20 Alcohol dependence, uncomplicated; Z95.1 Presence of aortocoronary bypass graft; J44.9 Chronic obstructive pulmonary disease, unspecified; K74.60 Unspecified cirrhosis of liver; Y90.9 Presence of alcohol in blood, level not specified; G47.33 Obstructive sleep apnea (adult) (pediatric); M54.9 Dorsalgia, unspecified; I08.1 Rheumatic disorders of both mitral and tricuspid valves; I77.810 Thoracic aortic ectasia; Y84.6 Urinary catheterization as the cause of abnormal reaction of the patient, or of later complication, without mention of misadventure at the time of the procedure
CPT/HCPCS: 0241U; 36415; 36430; 51702; 71045; 76770; 80048; 80053; 81001; 82947; 83735; 84484; 85014; 85018; 85025; 85520; 85610; 85730; 86850; 86900; 86901; 86923; 87077; 87086; 87186; 93005; 93010; 94762; 96361-59; 96365-59; 97162; 97530; 99285-25; A9270; C1751; J0696; J1170; J1644; J1815; J1940; J2405; J2765; J7030; J7040; P9016

== ENCOUNTER 2022-11-23 01:22 | Inpatient (IN) | payer OTHER, BC ==
[~2022-11-23] VITALS: Ht 165.1 cm; Wt 71.0 kg
[2022-11-23] VITALS (22 sets, daily range): BP systolic 52–157; BP diastolic 35–78
[~2022-11-23 01:22] MED LIST changes: +ATOR40TA PO; +CEFD300 PO; +LACT PO; +LOSA25 PO
[2022-11-23 02:21] LABS: BASOPHILS ABSOLUTE AUTO 0.03 K/mm3 (0.00-0.23); BASOPHILS PERCENT AUTO 0 % (0-2); EOSINOPHILS ABSOLUTE AUTO 0.07 K/mm3 (0.00-0.68); EOSINOPHILS PERCENT AUTO 1 % (0-6); Hematocrit 34.1 % (37.0-53.0); Hemoglobin 11.6 g/dL (13.5-17.5); IMMATURE GRAN ABSOLUTE AUTO 0.07 K/mm3 (0.00-0.10); IMMATURE GRAN PERCENT AUTO 1 % (0-1); LYMPHOCYTES ABSOLUTE AUTO 1.22 K/mm3 (0.84-5.20); LYMPHOCYTES PERCENT AUTO 16 % (21-46); MONOCYTES ABSOLUTE AUTO 1.06 K/mm3 (0.16-1.47); MONOCYTES PERCENT AUTO 14 % (4-13); Mean Corpuscular HGB 32.2 pg (26.0-34.0); Mean Corpuscular Volume 95 fL (80-100); Mean Platelet Volume 10.4 fL (9.1-12.4); NEUTROPHILS ABSOLUTE AUTO 5.17 K/mm3 (1.96-9.15); NEUTROPHILS PERCENT AUTO 68 % (41-73); Platelet Count 254 K/mm3 (150-400); RDW Coefficient Variation 14.3 % (11.7-14.2); RDW Standard Deviation 49.8 fL (35.1-46.3); White Blood Cell Count 7.62 K/mm3 (4.00-11.30)
[2022-11-23 02:32] LABS: Albumin/Globulin Ratio 0.8 (0.8-1.8); Bilirubin, Total 0.5 mg/dL (0.1-1.0); Bun/Creatinine Ratio 24.1 (12.0-20.0); Calcium, Blood 9.6 mg/dL (8.5-10.1); Creatinine, Blood 2.03 mg/dL (0.60-1.20); Globulin, Blood 3.9 g/dL (2.2-4.0); Potassium, Blood 3.9 mmol/L (3.5-5.5); Total Protein, Blood 6.9 g/dL (6.4-8.2)
[2022-11-23 02:44] LABS: International Normalized Ratio 0.99; Prothrombin Time Results 10.4 Sec (9.7-11.5)
[2022-11-23] MEDS ORDERED: AMLO5 PO (02:47)
[2022-11-23] MEDS ORDERED: ALOGLIPTIN12.5 M1 PO (02:48)
[2022-11-23] MEDS ORDERED: ALLERCLEAR10 MG PO (02:48)
[2022-11-23] MEDS ORDERED: PROC25S PR (02:48)
[2022-11-23] MEDS ORDERED: LORA.5 PO (02:49)
[2022-11-23] MEDS ORDERED: BISA10S PR (02:49)
[2022-11-23] MEDS ORDERED: HYOS.125 PO (02:49)
[2022-11-23] MEDS ORDERED: DIPH50 PO (02:49)
[2022-11-23] MEDS ORDERED: HALOPERIDOL2 MG/1 M1 PO (02:50)
[2022-11-23] MEDS ORDERED: DOCU100 PO (02:50)
[2022-11-23] MEDS ORDERED: OXAYDO5 M1 PO (05:10)
[2022-11-23] MEDS ORDERED: Aspir 8181 MG PO (05:41)
[2022-11-23] MEDS ORDERED: ATOR40TA PO (05:42)
[2022-11-23] MEDS ORDERED: CEFD300 PO (05:43)
[2022-11-23] MEDS ORDERED: BASAGLAR K100 UNIT/1 SC (05:44)
[2022-11-23] MEDS ORDERED: FURO40 PO (05:44)
[2022-11-23] MEDS ORDERED: KETO15TC TOP (05:45)
[2022-11-23] MEDS ORDERED: LACT PO (05:45)
[2022-11-23] MEDS ORDERED: OXYB5 PO (05:46)
[2022-11-23] MEDS ORDERED: POTA10T PO (05:47)
[2022-11-23] MEDS ORDERED: B-1100 M2 PO (05:49)
[2022-11-23 07:36] LABS: Source, Urine Foley catheter
[2022-11-23 07:45] LABS: Appearance, Urine Hazy (Clear); Bilirubin, Urine Neg (Neg); Blood, Urine 1+ (Neg); Color, Urine Yellow (P-Yellow); Glucose Qualitative, Urine Neg (Neg); Ketones, Urine 2+ (Neg); Leukocyte Esterase, Urine 3+ (Neg); Nitrite, Urine Neg (Neg); Protein, Urine 3+ (Neg); Urobilinogen, Urine NORM (Normal)
[2022-11-23 08:05] LABS: Bacteria Many /hpf; Squamous Epithelial Cells Rare /hpf (Few)
[2022-11-23 08:09] LABS: Calcium Phosphate Crystals Few /hpf
[2022-11-23 08:48] LABS: BASOPHILS ABSOLUTE AUTO 0.01 K/mm3 (0.00-0.23); BASOPHILS PERCENT AUTO 0 % (0-2); EOSINOPHILS ABSOLUTE AUTO 0.08 K/mm3 (0.00-0.68); EOSINOPHILS PERCENT AUTO 1 % (0-6); Hematocrit 30.2 % (37.0-53.0); Hemoglobin 10.3 g/dL (13.5-17.5); IMMATURE GRAN ABSOLUTE AUTO 0.04 K/mm3 (0.00-0.10); IMMATURE GRAN PERCENT AUTO 1 % (0-1); LYMPHOCYTES ABSOLUTE AUTO 1.36 K/mm3 (0.84-5.20); LYMPHOCYTES PERCENT AUTO 21 % (21-46); MONOCYTES ABSOLUTE AUTO 0.96 K/mm3 (0.16-1.47); MONOCYTES PERCENT AUTO 15 % (4-13); Mean Corpuscular HGB 32.1 pg (26.0-34.0); Mean Corpuscular HGB Conc 34.1 g/dL (31.5-36.5); Mean Corpuscular Volume 94 fL (80-100); Mean Platelet Volume 10.4 fL (9.1-12.4); NEUTROPHILS ABSOLUTE AUTO 4.07 K/mm3 (1.96-9.15); NEUTROPHILS PERCENT AUTO 62 % (41-73); Platelet Count 218 K/mm3 (150-400); RDW Coefficient Variation 14.3 % (11.7-14.2); RDW Standard Deviation 49.1 fL (35.1-46.3); Red Blood Cell Count 3.21 M/mm3 (4.30-5.90); White Blood Cell Count 6.52 K/mm3 (4.00-11.30)
--- NOTE | 2022-11-23 15:40 | NUR ---
[facility] Day Surgery. History, Chart, Medications and Allergies reviewed before start of procedure.Pre-Op teaching done. Pt verbalizes understanding. PT HAD ABOUT AN OUNCE OF A CLEAR LIQUID - PEACH ENSURE AT 1400. DR. ARVIN HAHN.
--- NOTE | 2022-11-23 15:55 | NUR ---
11/23/22 15[address] Ciro [address] SALAZAR MONITOR INTACT WITH CONTINUOUS PULSE OXIMETRY, CONTINUOUS END TITAL CO2, AND INTERMITTENT BLOOD PRESSURE.AND EKG
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
--- NOTE | 2022-11-23 19:45 | NUR ---
pt reting some aggitation, having Gi distress. He will have scope. Met with daughter states he is on [facility] hospice. She was stressed by his GI issues and called 911. Dr zhang in to see pt. plan is to follow up after scope for plan of care. project control manager spoke with son may be some social issues that may need aps.
--- NOTE | 2022-11-23 22:46 | NUR ---
TRANSFER NOTE THIS RN RECEIVED REPORT FROM ISAIAH JIN ON MEDICAL FLOOR. PT TRANSFERRED TO PCU AT 2024. PT A&O X3-4. UNSURE OF SPECIFIC DATE BUT KNOWS YEAR. FORGETFUL AT TIMES BUT UNDERSTANDS CURRENT POC. BP STABLE. SR WITH ON MONITOR WITH HR 60-70'S. ON 2L VIA NC WITH SPO2 >92%. NGT PATENT AND CONNECTED TO LIS; BROWN OUTPUT NOTED. PT DENIES N/V AND PAIN IN ABDOMEN. PT CALLING APPROPRIATELY. CHRISTINE CATHETER PATENT AND DRAINING TO GRAVITY. JAIN. BS+. PPP. NS AND PROTONIX GTT INFUSING PER EMAR. THIS RN SPOKE TO SON MIRIAN ON PHONE FOR UPDATE PER THE PATIENTS REQUEST. SON VERBALIZED UNDERSTANDING PLAN OF CARE. BED IN LOWEST POSITION AND CALL LIGHT WITHIN REACH.
[2022-11-24 03:36] VITALS: BP 110/91
[2022-11-24 03:39] LABS: Hematocrit 30.2 % (37.0-53.0); Hemoglobin 10.4 g/dL (13.5-17.5); Mean Corpuscular HGB 32.5 pg (26.0-34.0); Mean Corpuscular HGB Conc 34.4 g/dL (31.5-36.5); Mean Corpuscular Volume 94 fL (80-100); Mean Platelet Volume 10.2 fL (9.1-12.4); Platelet Count 195 K/mm3 (150-400); RDW Coefficient Variation 14.4 % (11.7-14.2); RDW Standard Deviation 49.8 fL (35.1-46.3); White Blood Cell Count 6.25 K/mm3 (4.00-11.30)
[2022-11-24 04:15] LABS: Albumin, Blood 2.5 g/dL (3.4-5.0); Albumin/Globulin Ratio 0.8 (0.8-1.8); Bilirubin, Total 0.4 mg/dL (0.1-1.0); Calcium, Blood 9.1 mg/dL (8.5-10.1); Creatinine, Blood 1.25 mg/dL (0.60-1.20); Globulin, Blood 3.3 g/dL (2.2-4.0); Magnesium, Blood 1.5 mg/dL (1.6-2.4); Phosphorus, Blood 2.1 mg/dL (2.5-4.9); Potassium, Blood 3.5 mmol/L (3.5-5.5); Total Protein, Blood 5.8 g/dL (6.4-8.2)
--- NOTE | 2022-11-24 05:56 | NUR ---
SHIFT SUMMARY SEE PREVIOUS NOTE. NO CHANGES TO NEURO. PT CALLING APPROPRIATELY. BP STABLE. SR BBB WTH PVC'S, HR 70'S. ON 2L VIA NC WITH SPO2 >92%. NGT TO LIS. BROWN OUTPUT NOTED. CHRISTINE CATHETER PATENT AND DRAINING TO GRAVITY. NS AND PROTONIX GTT INFUSING PER EMAR. THIS RN UPDATED OS RN YE REGARDING PATIENTS STATUS; CONFIRMED THAT THERE STILL IS NOT A BED AVAILABLE. PT ABLE TO REPOSITION SELF IN BED. BED IN LOWEST POSITION AND CALL LIGHT WITHIN REACH. THIS RN WILL REPORT TO ONCOMING RN.
[2022-11-24 07:44] VITALS: BP 142/92
--- NOTE | 2022-11-24 10:23 | NUR ---
ASSUMPTION OF CARE ASSUMED CARE AT APPROX 0700. PT AOX3-4. WAS DROWSY DURING INITIAL ENCOUNTER, BUT PT IS EASILY AROUSABLE TO VERBAL STIMULI. CAN BE FORGETFUL AT TIMES. ABLE TO COMMUNICATE NEEDS PRN. VSS. AT APPROX 0710, A 10 BEAT RUN OF VTACH OCCURRED. PT ASYMPTOMATIC, SLEEPING. MD AWARE. TELEMETRY CURRENTLY SHOWING SR BBB PAC's 80'S-90'S. BP STABLE. PT CURRENLTY ON 2L VIA NC, SATS >90%. PT REPORTING L SHOULDER PAIN, CHRONIC. IV FENTANYL ADMINISTERED, PT REPORTS LITTLE TO NO RELIEF. MD CONTACTED, MD TO PUT IN NEW ORDER. NGT IN PLACE, DRAINING BROWN OUTPUT. CHRISTINE CATHETER DRAINING YELLOW URINE TO GRAVITY. MD TO BEDSIDE TO DISCUSS PLAN OF CARE GOING FORWARD. PT ON HOME HOSPICE CARE PRIOR TO THIS ADMISSION. PT REPORTING DIFFICULTY W/ CONTACTING FAMILY AND MAKING DECISION AT THIS TIME. PALLATIVE CARE ON BOARD. IV MEDICATIONS INFUSING PER EMAR. CALL LIGHT IN REACH.
--- NOTE | 2022-11-24 10:42 | NUR ---
Supportive visit this AM. Pt resting in bed upon arrival. Pt expresses some concerns regarding wishes and which direction to pursue for plan of care. He reports hospitalist discussed options of transfering to [facility] but there is a waiting list or to return back home and go on hospice. He is requesting to speak with his son to assist with decision. Continued therapeutic listening. Called and spoke with Pt's son Vadim Shah. Provided update and Pt wishes to speak with him on options. Offered therapeutic listening and answered questions. Vadim Shah reports Pt can call him on his lunch break and is willing to assist. Spoke with Primary RNs who will assist Pt in calling son. Palliative Care will F/U for therapeutic and supportive visits
[2022-11-24 11:00] VITALS: BP 150/69
--- NOTE | 2022-11-24 11:59 | NUR ---
UPDATE AFTER SPEAKING W/ SON OVER THE PHONE, PT HAS CHOSEN TO CONTINUE W/ COBRA TRANSFER FOR FURTHER TREATMENT. DISCUSSED CODE STATUS FURTHER W/ PT. KERA RN NOTIFIED PALLATIVE CARE OF PT'S DECISION.
--- NOTE | 2022-11-24 13:50 | NUR ---
Received call from primary RN Ahsan reporting Pt spoke with son and he has elected to pursue procedure but would like to be DNR. Pt resting in bed upon arrival. Engaged in therapeutic discussion regarding code status wishes. Educated on life sustaining treatments including risks and implications to CPR/Intubation. Pt confirms his wishes are DNR. Assisted Pt with completing new POLST. Spoke with Dr Mccain and discussed case. Dr Mccain signs POLST. Placed DNR order in [facility] per V/O from Dr Mccain. Sent copy of POLST to medical records. Provided Primary RN original POLST and instructed POLST to follow Pt. Palliative Care will remain available
[2022-11-24 15:30] VITALS: BP 151/87
--- NOTE | 2022-11-24 17:04 | NUR ---
SHIFT SUMMARY NO ACUTE CHANGES SINCE ASSUMPTION OF CARE NOTE. NO CHANGES TO NEURO. PT COOPERATIVE W/ CARE AND ABLE TO MAKE NEEDS KNOWN. SEE PREVIOUS NOTES REGARDING DECISION TO CONTINUE W/ COBRA TRANSFER AND CODE STATUS CHANGE. VS REMAINED STABLE. NO FURTHER RUNS OF VTACH THIS SHIFT. TELEMETRY CONTINUING TO SHOW SR BBB PAC's 70'S-90'S. BP STABLE. REMAINS ON 2L VIA NC, SATS >90%. NO FURTHER OUTPUT FROM NG TUBE NOTED SINCE SAP BPC ARCHITECT. CHRISTINE CATHETER IN PLACE, DRAINING YELLOW URINE TO GRAVITY. LARGE BM THIS SHIFT. MANAGING CHRONIC L SHOULDER PAIN PER EMAR. KPAD IN PLACE WELL. UP TO RECLINER CHAIR W/ SBA. BED BATH PERFORMED. CALL LIGHT IN REACH. WILL REPORT TO ONCOMING RN.
--- NOTE | 2022-11-24 17:47 | NUR ---
UPDATE RN TO BEDSIDE PT BEGAN YELLING OUT FOR HELP, ATTEMPTING TO GET OUT OF BED. PT UNABLE TO REPORT HIS LOCATION. STATING "I NEED TO GET TO THE BOWLING ALLEY. I'M GOING BOWLING WITH MY DAUGHTER." ABLE TO REDIRECT PT TO HIS LOCATION AND SITUATION. SETTLED PT BACK IN BED. BED ALARM ON. WILL CONTINUE TO MONITOR AND REPORT TO ONCOMING RN.
[2022-11-24 20:23] VITALS: BP 165/69
--- NOTE | 2022-11-24 21:18 | NUR ---
ASSUMPTION OF CARE THIS RN ASSUMED CARE OF PATIENT AT 1900. PT A&O X4. FORGETFUL AT TIMES. NO NOTED CONFUSION/HALLUCINATIONS PREVIOUS SHIFT REPORTED. PT IS ABLE TO MAKE NEEDS KNOWS AND IS CALLING APPROPRIATELY. BED ALARM ON FOR SAFETY. SR BBB WITH PAC'S NOTED ON MONITOR HR 70'S. PT DENIES CHEST PAIN/PRESSURE AND SOB. ON 2L VIA NC WITH SPO2 >92%. NGT TO LIS. BP STABLE. MEDICATED PER EMAR FOR NECK/BACK PAIN. CLINIMIX INFUSING PER EMAR INTO VANNESSA PG. PROTONIX GTT AND NS INFUSING PER EMAR IN RT ARM PIV. CATHETER PATENT AND DRAINING TO GRAVITY. BED IN LOWEST POSITION AND CALL LIGHT WITHIN REACH.
[2022-11-24 23:02] VITALS: BP 149/70
[2022-11-25] VITALS (7 sets, daily range): BP systolic 137–157; BP diastolic 56–108
[2022-11-25 04:04] LABS: Hematocrit 27.4 % (37.0-53.0); Hemoglobin 9.3 g/dL (13.5-17.5); Mean Corpuscular HGB 32.4 pg (26.0-34.0); Mean Corpuscular HGB Conc 33.9 g/dL (31.5-36.5); Mean Corpuscular Volume 96 fL (80-100); Mean Platelet Volume 10.4 fL (9.1-12.4); Platelet Count 216 K/mm3 (150-400); RDW Coefficient Variation 14.2 % (11.7-14.2); RDW Standard Deviation 50.1 fL (35.1-46.3); Red Blood Cell Count 2.87 M/mm3 (4.30-5.90)
[2022-11-25 04:21] LABS: Albumin, Blood 2.3 g/dL (3.4-5.0); Anion Gap 5 mmol/L (6-16); Blood Urea Nitrogen 19 mg/dL (8-24); Bun/Creatinine Ratio 20.4 (12.0-20.0); CO2, Blood 27 mmol/L (21-32); Calcium, Blood 8.3 mg/dL (8.5-10.1); Chloride, Blood 106 mmol/L (98-108); Creatinine, Blood 0.93 mg/dL (0.60-1.20); Glomerular Filtration Rate 80 (60-); Glucose, Blood 200 mg/dL (70-99); Magnesium, Blood 1.2 mg/dL (1.6-2.4); Phosphorus, Blood 2.2 mg/dL (2.5-4.9); Potassium, Blood 3.6 mmol/L (3.5-5.5); Sodium, Blood 138 mmol/L (136-145)
--- NOTE | 2022-11-25 04:36 | NUR ---
SHIFT SUMMARY NO CHANGES SINCE PREVIOUS NOTE. VITALS REMAIN STABLE AND UNCHANGED. PT WITH POOR SLEEPING DURING THIS SHIFT. 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 PT WAS EASILY REDIRECTED AND BECAME ORIENTED X4. BED ALARM REMAINS ON FOR SAFETY. PT MEDICATED PER EMAR FOR CHRONIC BACK/NECK/SHOULDER PAIN. MD CONLEY WITH ORDER FOR TOPICAL BENGAY CREAM PER PATIENT REQUEST. PROTONIX GTT, NS, AND CLINIMIX INFUSING PER EMAR. THIS RN SPOKE TO YE JIN AT [facility] TO GIVE UPDATE ON PATIENT STATUS; CONFIRMED THAT THERE IS NO BED AVAILABLE YET. BED IN LOWEST POSITION AND CALL LIGHT WITHIN REACH. THIS RN WILL REPORT TO ONCOMING RN.
--- NOTE | 2022-11-25 11:01 | NUR ---
Brief supportive visit this AM. Pt resting in bed upon arrival. Pt denies pain at this time and reports current regimen is managing pain. Pt remains in agreement with transfer to [facility] for procedure. No new concerns at this time. Spoke with Primary RN Rea and discussed case. Palliative Care will remain available
--- NOTE | 2022-11-25 12:00 | NUR ---
MORNING SUMMARY PT HAS BEEN A&OX4, MOVES IND IN BED, AND CALLS APPROPRAITELY. THE PT IS NPO AND HAS AN NGTUBE HOOKED UP TO INT SUCTION. THE PT HAS PPN, PROTONIX, AND NS RUNNING CONT. HE CHRISTINE IS PATENT DRAINING TO GRAVITY. WE ARE KEEPING THE CHRISTINE DUE TO CHRONIC RETENTION. THE PT HAS DENIED ANY ANIGNA OR CHEST PRESSURE AND HAS BEEN SR W/ BBB, PROLONGED QTC, PVC'S IN THE 60'S-70'S. BP STABLE. HE ADEN SBEEN ON RA W/ SP02 >93% AND HE DENIES SOB. HE HAS HAD SOME LEFT SHOULDER AND BACK PAIN. HE HAS BEEN MEDICATED PER EMAR, GIVEN A HEATING PAD, ENCOURAGED REPOSTIONING, AND HAS HAD INT. REST. THE PT HAS BEEN ASSESSED FOR ANY FIRE IGNITION RISKS. NO RISKS AT THIS TIME .
--- NOTE | 2022-11-25 12:29 | NUR ---
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 He has a heating pad to the left shoulder, which was just placed 45 minutes ago. He also has a lidocaine patch, placed earlier this morning. I went into the room expecting to need to medicate him with ordered PRN IV dilaudid; however, when I enter the room he appears to be sleeping, respirations even and unlabored, and his eyes closed. TV was placed on mute, the pt call light was moved in his hand and he did not awaken. Holding pain medication at this time for concern for oversedating him without clear evidence for need of IV narcotic.
--- NOTE | 2022-11-25 18:09 | NUR ---
Noted browm liquid in the NGT was not moving, despite intermittent suction. Using piston syringe, 10 cc air injected to the tube and patency was restored. NGT to low intermittent suction. Pt had no c/o during the procedure. Mouth swabs for dry mouth provided at bedside.
--- NOTE | 2022-11-25 18:25 | NUR ---
Medicated for left shoulder pain rated 8/10 by pt, with IV prn dilaudid.
[2022-11-26] VITALS (9 sets, daily range): BP systolic 135–168; BP diastolic 62–116
--- NOTE | 2022-11-26 06:05 | NUR ---
SHIFT SUMMARY ASSUMED CARE OF PT AT 1900. PT IS A/OX4 WITH TIMES OF CONFUSION SUCH DATES AND TIME. HEART SOUNDS IRREGULAR. PT TACHS UP TO 120S WITH ACTIVITY. LUNG SOUNDS HAVE CRACKLES AT BASES. PT HAD NG TUBE HOOKED TO INTERMITANT SUCTION. PT HAD CHRISTINE DRAINING CLEAR YELLOW URIN.E PT C/O SHOULDER PAIN T/O THE NOC. MEDICATED PER EMAR AND FOAM PLACED ON PT BED. NO WONDERING IF HE WILL EVERY FEEL BETTER AND GET OUT OF HOSPITAL.
--- NOTE | 2022-11-26 09:13 | NUR ---
PT ALERT AND ORIENTED X4, ABLE TO MAKE NEEDS KNOWN AND ANSWERS QUESTIONS APPRORIATELY. PT REQUESTED TO SHAVE HIS FACE WITH ELECTRIC SHAVER TODAY, PT TOLERATED WELL. PT IS ON RA AND MAINTAINING O2 SATURATION ABOVE 93%, PT DENIES SOB. PT HAS NG TUBE, SET TO INTERMITTENT SUCTION, MODERATE AMOUNT OF BROWN DRAINAGE. PTS HR 90S, SR/BBB, BP STABLE, PT DENIES CHEST PAIN/PRESSURE. CHRISTINE CATHETER IN PLACE, PT HAS HX OF CHRONIC RETENTION, PT SELF CATHS AT HOME, CHRISTINE DRAINING YELLOW URINE WITH GRAVITY. PT STATED HE HAS NOT HAD A BOWEL MOVEMENT IN TWO DAYS, AND THAT IS NORMAL FOR HIM. POWERGLIDE WAS PLACED TO RIGHT UPPER ARM LAST NIGHT, FLUSHED AND PATENT, CURRENTLY INFUSING PER EMAR. IV IN R AC, PATENT, AND INFUSING PER EMAR. PT STATED HE DID NOT GET A LOT OF SLEEP LAST NIGHT AND WOULD LIKE TO REST TODAY. PT WAS UP IN CHAIR FOR A FEW HOURS THIS MORNING, IN BED NOW RESTING AND WATCHING TV. CALL LIGHT WITHIN REACH.
--- NOTE | 2022-11-26 11:50 | NUR ---
PT STATED 7/10 L SHOULDER PAIN AND REQUESTED PAIN MEDS, MEDICATED PER EMAR, PT STATED PAIN DOWN TO 4/10. PT REQUESTED NOT TO BE BOTHERED FOR A FEW HOURS SO HE COULD TAKE A NAP. BLINDS CLOSE, LIGHTS OFF, CURTAIN CLOSED, PER PT REQUEST. CALL LIGHT WITHIN REACH.
--- NOTE | 2022-11-26 17:54 | NUR ---
SHIFT SUMMARY SEE PREVIOUS NOTES. PTS HR HAS BEEN 90S-130S TODAY, PT DENIES CHEST PAIN/PRESSURE/DIZZINESS. PT ON RA, MAINTAINING O2 SATURATION ABOVE 93%, DENIES SOB. NG TUBE IS SET TO INTERMITTENT SUCTION, BROWN LIQUID DRAINING. PT'S CHRISTINE IS PATENT AND DRAINING YELLOW URINE WITH GRAVITY. PT SPOKE WITH HIS SON AND STEP DAUGHTER OVER THE PHONE SEVERAL TIMES TODAY. STEP DAUGHTER IS HERE VISITING HIM NOW. PT SITTING ON EDGE OF BED WITH TABLE IN FRONT OF HIM WRITING ON A NOTEPAD WITH TV ON, CALL LIGHT WITHIN REACH.
--- NOTE | 2022-11-26 20:56 | NUR ---
ASSUMED PT CARE FORM RN ON . A&OX4. DENIES FEELINGS OF NAUSEA AT THIS TIME. NGT IN PLACE TO INTERMITTENT WALL SUCTION, BROWN/GREEN BILE NOTED IN CANISTER. REPORTS SORE THROAT FROM NGT, OBTAINED ORDER FOR NUMBING AGENT FROM RESIDENT AT PT REQUEST. DENIES SOB, O2 SATS > 92% ON RA. LUNG MA CLEAR. HR SR WITH BBB IN 90'S AT THIS TIME. DENIES FEELINGS OF CHEST PAIN/PRESSURE. MEDICATED FOR CHRONIC PAIN BY MORELIA SESAY CHARGE NURSE. SITTING AT SOB. CALL LIGHT IN REACH. BED IN LOW POSITION.
[2022-11-27 00:37] VITALS: BP 143/85
[2022-11-27 03:21] VITALS: BP 144/86
[2022-11-27 03:28] LABS: Mean Corpuscular HGB 32.3 pg (26.0-34.0); Mean Corpuscular HGB Conc 34.5 g/dL (31.5-36.5); Mean Corpuscular Volume 94 fL (80-100); Mean Platelet Volume 10.2 fL (9.1-12.4); Platelet Count 248 K/mm3 (150-400); RDW Coefficient Variation 14.1 % (11.7-14.2); RDW Standard Deviation 48.1 fL (35.1-46.3); White Blood Cell Count 7.43 K/mm3 (4.00-11.30)
[2022-11-27 03:47] LABS: Albumin, Blood 2.5 g/dL (3.4-5.0); Anion Gap 5 mmol/L (6-16); Blood Urea Nitrogen 14 mg/dL (8-24); Bun/Creatinine Ratio 15.4 (12.0-20.0); CO2, Blood 27 mmol/L (21-32); Calcium, Blood 7.7 mg/dL (8.5-10.1); Chloride, Blood 105 mmol/L (98-108); Creatinine, Blood 0.91 mg/dL (0.60-1.20); Glomerular Filtration Rate 83 (60-); Glucose, Blood 188 mg/dL (70-99); Magnesium, Blood 1.2 mg/dL (1.6-2.4); Phosphorus, Blood 2.5 mg/dL (2.5-4.9); Sodium, Blood 137 mmol/L (136-145)
--- NOTE | 2022-11-27 05:33 | NUR ---
SHIFT SUMMARY: PT REPORTS INABILIY TO SLEEP. IV BENADRYL FOR SLEEP AID MINIMALLY AFFECTIVE. MEDICATED FOR CHRONIC PAIN WITH PRN IV AND TOPICAL MEDICATION, SEE EMAR. NGT IN PLACE TO INTERMITTENT LOW WALL SUCTION. PUTTING OUT GREEN/BROWN STOMACH CONTENCE. NO COMPLAINTS OF NAUSEA. HR INCREASING INTO 160'S AT TIMES WHEN MOVING OR PAINFUL. PT ASYMPTOMATIC. HR RESOLVES INTO 80-90'S AFTER BEING AT REST. PROTONIX, CLINIMIX, AND NS INFUSING ORDERED. CHRISTINE CATHETER DRAINING TO GRAVITY WITHOUT DIFFICULTY. CALL LIGHT IN REACH. BED IN LOW POSITION. BED ALARM ON.
[2022-11-27 07:27] VITALS: BP 118/68
--- NOTE | 2022-11-27 10:40 | NUR ---
CARE NOTE AT APPROX. 1035 THIS RN WENT INTO PT ROOM AND PT STATED "I JUST DON'T FEEL RIGHT," HR NOTED TO BE AFIB 90-100, SPO2 97% VIA RA. PT DENIED FEELINGS OF CHEST PAIN/PRESSURE, NGT CONNECTED TO LOW INTERMITTENT SUCTION PER EMAR ORDERS AND IS PATENT. PT DENIED ABD PAIN BUT STATED "I JUST CAN'T GET COMFORTABLE." DR. GALVAN NOTIFIED OF HR IN 140'S AND REACHING 175 AT APPROX. 1000. WILL CONTINUE TO MONITOR TELE. BP NOTED TO BE STABLE AT 153/108 W/ MAP OF 123. CALL LIGHT IS W/IN REACH.
[2022-11-27 12:25] VITALS: BP 141/99
[2022-11-27 15:23] VITALS: BP 151/68
--- NOTE | 2022-11-27 17:39 | NUR ---
SHIFT SUMMARY PT IS ALERT AND ORIENTED X 4, HE IS ABLE TO MAKE HIS NEEDS KNOWN. SPO2 MAINTAINED >95% VIA RA. HR NOTED TO HAVE CONVERTED FROM SINUS RYTHM TO AFIB AT APPROX. 0700 PER TELE MONITORING. HR TOUCHED 175 AND WAS MAINTAINING 120-140'S SO 1 DOSE OF LOPRESSOR GIVEN PER EMAR ORDERS, HR HAS NOW BEEN AFIB 70-90'S PER TELE MONITORING. HE DENIES FEELINGS OF CHEST PAIN/PRESSURE, SOB AND NAUSEA BUT REPORTED FEELING INCREASED WEAKNESS SO PT TOOK IT UPON HIMSELF TO DO SIT TO STAND EXERCISES IN RECLINER CHAIR, HE APPEARED STEADY ON HIS FEET BUT WEAK. NGT IS CONNECTED TO LOW INTERMITTENT SUCTION PER EMAR ORDERS, OUTPUT NOTED TO BE GREEN/BLACK IN COLOR. CLINIMIX/PARENTERAL NUTRITION IS INFUSING PER EMAR ORDERS IN KRISTY PG. PROTONIX AND NS ARE INFUSING PER EMAR ORDERS. PT REPORTED 9/10 PAIN IN L SHOULDER WELL DISCOMFORT IN THROAT DUE TO NG TUBE, PLEASE SEE EMAR FOR PAIN MANGEMENT. HEAT THERAPY ALSO USED TO REDUCE PAIN. LIDOCAINE PATCH ALSO IN PLACE ON LEFT SHOULDER. CHRISTINE CATHETER IS IN PLACE AND DRAINING CLOUDY YELLOW OUTPUT. BANKING ATTORNEYANNABEL KEARNEY CALLED [facility] THIS AM AND [facility] REPORTED THAT THEY ARE NOT OPENING UP ANY BEDS THIS WEEKEND, DR. GALVAN MADE AWARE. PT IS NOW IN RECLINER CHAIR AND APPEARS TO BE WATCHING TV, CALL LIGHT IS W/IN REACH.
[2022-11-27 21:29] VITALS: BP 153/103
[2022-11-28] VITALS (25 sets, daily range): BP systolic 110–164; BP diastolic 55–115
[2022-11-28 04:51] LABS: Hematocrit 25.7 % (37.0-53.0); Hemoglobin 8.6 g/dL (13.5-17.5); Mean Corpuscular HGB 31.9 pg (26.0-34.0); Mean Corpuscular HGB Conc 33.5 g/dL (31.5-36.5); Mean Corpuscular Volume 95 fL (80-100); Mean Platelet Volume 10.7 fL (9.1-12.4); NRBC ABSOLUTE 0.02 K/mm3 (0.00-0.02); NRBC Auto 0.3 /100 WBC (0.0-0.2); Platelet Count 199 K/mm3 (150-400); RDW Coefficient Variation 14.2 % (11.7-14.2); RDW Standard Deviation 50.1 fL (35.1-46.3); White Blood Cell Count 6.92 K/mm3 (4.00-11.30)
[2022-11-28 05:19] LABS: Albumin, Blood 2.2 g/dL (3.4-5.0); Anion Gap 7 mmol/L (6-16); Blood Urea Nitrogen 14 mg/dL (8-24); Bun/Creatinine Ratio 16.3 (12.0-20.0); CO2, Blood 24 mmol/L (21-32); Calcium, Blood 8.1 mg/dL (8.5-10.1); Chloride, Blood 111 mmol/L (98-108); Creatinine, Blood 0.86 mg/dL (0.60-1.20); Glomerular Filtration Rate 85 (60-); Glucose, Blood 186 mg/dL (70-99); Magnesium, Blood 1.3 mg/dL (1.6-2.4); Phosphorus, Blood 2.3 mg/dL (2.5-4.9); Potassium, Blood 3.2 mmol/L (3.5-5.5); Sodium, Blood 142 mmol/L (136-145)
--- NOTE | 2022-11-28 06:39 | NUR ---
SHIFT SUMMARY: A&OX4. ABLE TO FOLLOW DIRECTIONS AND MAKE NEEDS KNOWN. NGT IN PLACE TO LOW INTERMITTENT WALL SUCTION, PUTTING OUT SMALL AMOUNT OF BROWN/GREEN STOMACH CONTENCE. DENIES ANY NAUSEA OR EMESIS DURING THIS SHIFT. INFUSIONS OF CLINIMIX, NORMAL SALINE, AND PROTONIX INFUSING ORDERED. HR A-FIB BETWEEN 90-170'S. IV METROPROLOL GIVEN FOR INCREASED HR WITH GOOD AFFECT. OFTEN HR SPONTANIOUSLY DECREASES TO LOW 100'S WITHOUT NEED FOR MEDICATION. ASYMPTOMATIC WITH INCREASED HR. BP STABLE. MEDICATED FOR PAIN WITH IV PAIN MEDS, SEE EMAR. CALL LIGHT IN REACH. BED IN LOW POSITION. BED ALARM ON.
--- NOTE | 2022-11-28 11:13 | NUR ---
CARE NOTE THIS RN SPOKE W/ KIERAN RN FROM [facility] REGARDING PT'S STATUS/PLAN FOR TRANSFER, THIS RN RELAYED STATUS OF PT. KIERAN RN STATED THAT THERE ARE 8 PATIENTS WAITING FOR A BED AND PT IN PCU 15 IS HIGH PRIORITY.
--- NOTE | 2022-11-28 11:43 | NUR ---
CARE NOTE INTRALIPIDS ADMINISTRATION IS DELAYED DUE TO K CHLOR AND CLINIMIX INFUSION. WILL ADMINISTER WHEN ABOVE MENTIONED INFUSIONS ARE COMPLETE
--- NOTE | 2022-11-28 17:30 | NUR ---
SHIFT SUMMARY PT IS ALERT AND ORIENTED X 4, HE IS ABLE TO MAKE HIS NEEDS KNOWN AND ANSWERS QUESTIONS APPROPRIATELY. BP STABLE, HR NOTED TO REACH AFIB 175 DURING SHIFT, PLEASE SEE EMAR FOR HR MANAGEMENT. SPO2 MAINTAINED 100% VIA RA. PT DENIED FEELINGS OF CHEST PAIN/PRESSURE BUT REPORTED FEELING SOB, HR NOTED TO BE ELEVATED WHEN PT FELT SOB. HE ALSO REPORTED CHRONIC PAIN IN NECK, BACK, AND LEFT SHOULDER. LIDOCAINE PATCH IS IN PLACE ON L SHOULDER, HEAT THERAPY ALSO USED TO ALLEVIATE PAIN. ALSO PLEASE SEE EMAR FOR PAIN MANAGEMENT. NGT IS CONNECTED TO LOW INTERMITTENT SUCTION PER EMAR ORDERS AND DRAINING THIN LIGHT BROWN OUTPUT. HE IS STRICT NPO. PLEASE SEE PREVIOUS NOTE REGARDING THIS RN SPEAKING W/ [facility] RN REGARDING STATUS AND TRANSFER. CLINIMIX, PROTONIX, LIPIDS AND NS INFUSING PER EMAR ORDERS. PT HAS BEEN UP TO CHAIR A SBA W/ FWW. CHRISTINE CATHETER IS IN PLACE AND DRAINING TO GRAVITY. PT IS NOW IN BED, CALL LIGHT W/IN REACH.
--- NOTE | 2022-11-28 18:45 | NUR ---
CARE NOTE THIS RN RESPONDED TO CALL LIGHT, PT REPORTED FEELINGS OF ANXIETY, PLEASE SEE EMAR FOR ANXIETY MANAGEMENT. THIS RN ALSO COMMUNICATED THERAPEUTICALLY TO ASSIST IN ALLEVIATING ANXIETY. THIS RN ALSO SENT A FAX TO IN PHARMACY REQUESTING COMPLETE MEDICATION LIST SO THAT MED REC COULD BE COMPLETED, WILL PASS ON INFO TO ONCOMING RN.
[2022-11-28 22:56] LABS: Base Excess Venous -7.4 mmol/L; Bicarbonate Venous 19.2 mmol/L (24.0-30.0); PCO2 Venous 27.9 mmHg (38-42)
[2022-11-28 22:57] LABS: Hematocrit 29.9 % (37.0-53.0); Hemoglobin 10.2 g/dL (13.5-17.5)
--- NOTE | 2022-11-28 23:36 | NUR ---
ASSUMED PT CARE FROM RN ON . PT ALERT THIS EVENING, ANXIOUS, CONFUSED ABOUT SITUATION. ATTEMPTING TO GET OUT OF BED STATING "I HAVE TO SEE WHAT IS HAPPENING". UNABLE TO REORIENT. PT UP TO BSC TO HAVE MEDIUM, PARTIALLY FORMED BP. HR INCREASED INTO 180'S, PT DOES NOT COMPLAIN CHEST PAIN/PRESSURE. REPORTS FEELING SOB. PT VITIBLE TACHYNPIC IN THE 30'S WITH RESPIRATIONS. LUNGS DIMINISHED IN BASES. SATS IN LOW 90'S, OCCAIONALLY DIPPING TO 88%. PLACED ON 2 LPM VIA NC FOR COMOFORT. PT ANXIOUS, ATTMEPTING TO GET OUT OF BED. SPOKE WITH MICHA SAM, RECIEVED ORDERS FOR IV METOPROLOL AND HALDOL. HR DECREASES TO 100-130'S, STILL ATTEMPTING TO GET OUT OF BED AND TACHYPNIC WILE MAINTAINING O2 SATS > 90'S. IV DILAUDED GIVEN FOR CHRONIC PAIN. RESPIRATIONS NOW EVEN AND UNLABORED IN < 24. RESTING WITH EYES CLOSED, APPEARS TO BE SLEEPING. CALL LIGHT IN REACH. BED IN ALARM ON.
[2022-11-29] VITALS: BP 118/78
[2022-11-29 00:15] VITALS: BP 155/56
[2022-11-29 00:30] VITALS: BP 133/75
--- NOTE | 2022-11-29 04:35 | NUR ---
THIS MOLD WASHER SPOKE WITH SON MIRIAN VIEYRA VIA PHONE @[phone] DUE TO PT CONTINUED DECLINE OVERNIGHT WITH INCREASED HR IN THE 180S, RESPIRATORY RATE IN THE 30S, AGONAL BREATHING PATTERN. PT IS A DNR AND POLST FORM STATES HE IS THE EMERGENCY CONTACT. PER MIRIAN SALAZAR, WOULD LIKE TO TRANSITION TO COMFORT CARE. FAMILY WILL BE COMING IN THIS MORNING TO SEE PT. UPDATED PRIMARY RN LINDA AND DR. ARCHER CAME TO BEDSIDE. COMFORT ORDERS RECEIVED.
--- NOTE | 2022-11-29 06:44 | NUR ---
SHIFT SUMMARY: PT BECOMES INCREASING TACHYPNIC THROUGHOUT SHIFT. SATS MAINTAINED ON 2 LPM VIA NC BUT APPEARS IN DISTRESS. PT INCREASINGLY AGITATED, ATTEMPTING TO GET OUT OF BED AND PULL AT LINES. UNABLE TO REORIENT WITHOUT SUCCESS. IRA CHARGE NURSE SPOKE WITH SON, SEE HER NOTED. PT MOVED TO PCU 10. PLACED ON COMFORT CARE. MEDICATED FOR COMFORT, SEE EMAR. RESTING IN BED WITH EYES CLOSED. CALL LIGHT IN REACH, BED ALARM ON. SON PRESENT AT BEDSIDE.
--- NOTE | 2022-11-29 15:23 | NUR ---
Spiritual care visit conducted. Patient is lying in bed and minimally responsive. Pt's son Vadim and his souse Shakila are bedisde. Vadim is tearful and expressing sadness and then redfaced, loud and cussing about his anger toward his half sister. He returns to his grieving and then is calm and then angry again. 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 He shares about the of his brother. Vadim explains about about his struggles to get his medications right for his anxiety. I emphasize the importance of keeping a safe and peaceful place for his father, I hear confession, normalize the messiness of anticipatory grief and provide therapeutic listening, gentle school counselor and prayer. Vadim responded well to Brim Presser interventions and showed signs of greater peace.
--- NOTE | 2022-11-29 15:43 | NUR ---
TRANSFER TO [facility] PT TRANSFERED FROM PCU. CC IN PLACE. PT RESTING IN BED. EYES CLOSED, FACE & BODY RELAXED. PT SON AND DAUGHTER IN LAW AT BEDSIDE. CALL LIGHT IN REACH. COMFORT CART IN ROOM AND WATER REFILLED FOR FAMILY.
--- NOTE | 2022-11-29 15:48 | NUR ---
TRANSFER NOTE: PT TRANSFERED TO MEDICAL FLOOR. REPORT GIVEN TO ANNABEL MA. PT FAMILY EDUCATED ABOUT CHANGE IN STATUS AND ROOM MOVE. PT RESTING COMFORTABLY WITH EVEN UNLABORED RESPIRATIONS. PT MEDICATED PER MAR FOR AXIOUSNESS AND AIR HUNGER. FAMILY EDUCATED ON AND DYING AND WHAT TO EXPECT. PT ON 3L O2 FOR COMFORT.
--- NOTE | 2022-11-29 15:52 | NUR ---
Medications note 0715 - Pt in respiratory distress, increased repd rate at 24-30's, deep, fast breathing, breathing moist, gurgles noted, medicated with roxanol 10 mg and atropine drops 0720 - reassessed patinet for airhunger, pt continues to have airhunger with increased resp rate/effort and moist/gurgles noted, medicated with additional 10mg of roxanol and placed scopalamine patch. 0830- Pt appears to be resting comfortably. No resp distress noted. 0950 - Airhunger noted on assessment, increase resp effort and rate 24-30's deep, tachypnea. Medicated with 20mg of roxanol. 1355 - Pt attempting to get out of bed because he has to pee, pt educated that he has a catheter, pt continues to focus on the need to pee. Ativan given.
--- NOTE | 2022-11-30 06:35 | NUR ---
SHIFT SUMMARY PT LAYING IN BED DURING BEDSIDE REPORT, SON AND VIJAY AT BEDSIDE, CHRISTEN VELA HAS POWER OF MULTI DISCIPLINED LANGUAGE ANALYST WHICH FORM IS IN CURRENT CHART- MEDICATED PT MULTIPLE TIMES WITH ATIVAN AND MORPHINE D/T AIR HUNGER AND PAIN T/O NIGHT, PT REPOSITIONED AND ORAL CARE DONR T/O NIGHT, PT SUCTIONED SEVERAL TIMES D/T WET SOUNDS- PT TOLERATED WELL - PHONE CALL FROM SON TWICE IN NIGHT CHECKING UP ON PATIENT, VIJAY AT BEDSIDE ON/OFF UNTIL 0100= CHRISTINE CATHETER DRAINING LINDA COLORED URINE- BED LOW POSITION, CALL LIGHT WITHIN REACH, BED ALARM IN PLACE
--- NOTE | 2022-11-30 09:48 | NUR ---
ASSUMED CARE OF PT. PT GIVEN ATROPINE FOR EXCESS SECRETIONS. PT REPOSITIONED. FLACC SCORE ASSESSED FOR PT COMFORT, NO SIGNS OF DISTRESS NOTED. NO ACUTE EVENTS AT THIS TIME.
--- NOTE | 2022-11-30 12:21 | NUR ---
CHANGE IN BREATHING. FAMILY CALLED. PT HAD A CHANGE IN BREATHING AT APPROX 1100. TACHYPNEA AND INCREASED WORK OF BREATHING PALLIATIVE CARE CONSULTED AND SPIRITUAL CARE IN WITH PATIENT. PTS SON, MIRIAN AND DAUGHTER, HARRY NOTIFIED OF PATIENT CHANGE IN CONDITION AND ARE ON THEIR WAY TO THE [facility]. DR. AVILA NOTIFIED OF PATIENTS CONDITION AND ROXANOL WAS CHANGED TO Q30 TO HELP WITH AIR HUNGER
--- NOTE | 2022-11-30 14:06 | NUR ---
Spiritual care visit conducted. Patient is lying in bed and working very hard at breathing. Patient's RN, Yolanda, and Palliative care RN, Noelle work hard to keep the patient's comfortable. Patient's son, Vadim comes into the patient's room and immediately grab's my hands and says something like, "[place] for me Father and I am angry and I don't want to do something in rage to my sister." I gladly pray for him and he calms down and then he explains about the arguement that he and his had with the his sister. He tells Yolanda not to let anyone in the room to see the patient. He then sits by his father and talks lovingly to him and then tells Yolanda to allow the sister only into the room. I provide therapeutic listening and prayer and will continue to remain available to patient and family.
--- NOTE | 2022-11-30 16:13 | NUR ---
PT ON COMFORT CARE. PT IS , TIME OF 1534. VERIFICATION DONE BY ANIL WALDRON AND LI FINE. NO SIGNS OF LIFE NOTED UPON ASSESSMENT. PT FAMILY AT BEDSIDE WITH PASTORAL CARE.
--- NOTE | 2022-11-30 16:58 | NUR ---
Spiritual care visit conducted. Family grieves appropriately. Grief support, prayer and help selecting a home provided. Family respond well and show signs of being comforted.
== END 2022-11-30 15:25 | DRG 378 ==
LOC: ER 01:22 → MEDS 01:23 → PCU 01:23 → MEDS 05:13 → ER 05:13 → MEDS 05:13 → PCU 07:49 → MEDS 07:50 → PCU 20:28 → MEDS 11-24 10:34 → PCU 11-24 10:34 → MEDS 11-29 15:24
PROVIDERS: Family Medicine; Internal Medicine; Internal Medicine Gastroenterology; Nurse Practitioner Acute Care; Student in an Organized Health Care Education/Training Program; ADMIT Internal Medicine
PROC: 0DB68ZX Excision of Stomach, Via Natural or Artificial Opening Endoscopic, Diagnostic (ICD-10-PCS; principal; 2022-11-23 16:00)
DX: K26.4 Chronic or unspecified duodenal ulcer with hemorrhage (principal); I13.0 Hypertensive heart and chronic kidney disease with heart failure and stage 1 through stage 4 chronic kidney disease, or unspecified chronic kidney disease; I48.20 Chronic atrial fibrillation, unspecified; I50.22 Chronic systolic (congestive) heart failure; K31.1 Adult hypertrophic pyloric stenosis; N17.9 Acute kidney failure, unspecified; Z51.5 Encounter for palliative care; Z66 Do not resuscitate; G89.29 Other chronic pain; N40.1 Benign prostatic hyperplasia with lower urinary tract symptoms; R33.8 Other retention of urine; E87.6 Hypokalemia; I25.10 Atherosclerotic heart disease of native coronary artery without angina pectoris; E11.22 Type 2 diabetes mellitus with diabetic chronic kidney disease; D63.1 Anemia in chronic kidney disease; I08.3 Combined rheumatic disorders of mitral, aortic and tricuspid valves; E83.42 Hypomagnesemia; E83.39 Other disorders of phosphorus metabolism; B19.20 Unspecified viral hepatitis C without hepatic coma; N18.2 Chronic kidney disease, stage 2 (mild); M54.9 Dorsalgia, unspecified; F41.9 Anxiety disorder, unspecified; M19.90 Unspecified osteoarthritis, unspecified site; K22.11 Ulcer of esophagus with bleeding; F10.20 Alcohol dependence, uncomplicated; K70.30 Alcoholic cirrhosis of liver without ascites; R94.31 Abnormal electrocardiogram [ECG] [EKG]; H26.9 Unspecified cataract; R63.4 Abnormal weight loss; B96.4 Proteus (mirabilis) (morganii) as the cause of diseases classified elsewhere; Z88.8 Allergy status to other drugs, medicaments and biological substances; Z79.891 Long term (current) use of opiate analgesic; Z79.899 Other long term (current) drug therapy; Z79.4 Long term (current) use of insulin; Z79.01 Long term (current) use of anticoagulants; Z79.2 Long term (current) use of antibiotics; Z79.82 Long term (current) use of aspirin; Z85.51 Personal history of malignant neoplasm of bladder; Z86.73 Personal history of transient ischemic attack (TIA), and cerebral infarction without residual deficits; Z87.19 Personal history of other diseases of the digestive system; Z85.828 Personal history of other malignant neoplasm of skin; Z98.890 Other specified postprocedural states; Z90.49 Acquired absence of other specified parts of digestive tract; Z87.891 Personal history of nicotine dependence; Z95.5 Presence of coronary angioplasty implant and graft; Z86.79 Personal history of other diseases of the circulatory system; Z86.14 Personal history of Methicillin resistant Staphylococcus aureus infection; Z95.1 Presence of aortocoronary bypass graft; Z87.01 Personal history of pneumonia (recurrent); Z87.440 Personal history of urinary (tract) infections; Z68.24 Body mass index [BMI] 24.0-24.9, adult
CPT/HCPCS: 36415; 51702; 71046; 80053; 80069; 81001; 82803; 82947; 83735; 83880; 84100; 85014; 85018; 85025; 85027; 85610; 86850; 86900; 86901; 87077; 87086; 87186; 88305; 88342; 93005; 93010; 94760; 96361-59; 96365-59; 96366; 96366-59; 96367; 96368; 96375; 96376; 96376-59; 99285-25; A9270; C1751; C9113; G0378; J1170; J1200; J1630; J2060; J2704; J3010; J3411; J3475; J3480; J7030; J7050; J7060; J7120